=== PATIENT | male | born 1960 | race Caucasian/White ===

== ENCOUNTER 2016-11-20 08:30 | Inpatient (IN) | payer MEDICAID ==
--- NOTE | 2016-11-20 08:32 | EDPHY ---
H & P HPI/ROS: CHIEF COMPLAINT: Altered mental status HISTORY OF PRESENT ILLNESS: The patient is a 56 year old male with alcoholism, brought in by EMS, presenting with altered mental status. The patient resides at [facility]. According to their staff, the patient became manic last night and this morning seemed appeared altered. BGL in route was 109. Further history is unobtainable due to patient's altered mental status and failure to follow commands. REVIEW OF SYSTEMS: ROS is limited due to patient's altered mental status and failure to follow commands. Past Medical/Surgical History: Medical records reviewed from previous admission H&P dated 08/26/16. IDDM, Peripheral artery disease, GERD, Depression, Alcoholism PSH: Right BKA, Cholecystectomy Social History: Patient was previously homeless, no resides at [facility]. Physical Exam: General Appearance: Alert, agitated and uncooperative, mainly moaning and groaning, but states that he wants to Eyes: Pupils equal and round, no conjunctival pallor or injection ENT, Mouth: Mucous membranes moist Neck: Normal inspection Respiratory: Lungs are clear to auscultation Cardiovascular: Regular rate and rhythm Gastrointestinal: Abdomen is soft, no apparent tenderness Neurological: Alert, moves all extremities, does not follow commands Skin: Warm and dry Extremities: Right BKA Psychiatric: Agitated Constitutional: Initial Vital Signs Temperature (C) 35.8 C L 11/20/16 08:45 Heart Rate 87 11/20/16 08:45 Respiratory Rate 16 11/20/16 08:45 Blood Pressure 133/96 H 11/20/16 08:45 O2 Sat (%) 94 11/20/16 08:45 O2 Delivery Mode Nasal Cannula O2 (L/minute) 2 Allergies/Adverse Reactions: No Known Allergies Allergy (Verified 07/10/16 11:05) Home Medications: Medication Instructions Recorded Albuterol [Proventil Inhaler HFA 2 puffs IH Q4 PRN #0 mdi 07/21/16 (*)] Aspirin EC [Aspirin EC 81 mg (*)] 81 mg PO DAILY #0 tab 07/21/16 Polyethylene Glycol 3350 [Miralax 17 gm PO DAILY #0 pkt 07/21/16 17 gm (*)] Thiamine HCl [Vitamin B-1] 100 mg PO DAILY #0 tab 07/21/16 amLODIPine BESYLATE [Norvasc 5 mg 5 mg PO DAILY #0 tab 07/21/16 (*)] guaiFENesin [Mucinex 600 MG (*)] 1,200 mg PO BID #0 tab.er 07/21/16 Insulin Aspart [Novolog Flexpen] 4 unit SQ BID@12,17 08/26/16 Insulin Detemir [Levemir Flextouch] 22 unit SQ HS 08/26/16 Insulin Detemir [Levemir Flextouch] 25 unit SQ DAILY 08/26/16 Nicotine [Nicoderm Cq 21 mg (*)] 21 mg TD DAILY PRN 08/26/16 Omeprazole 20 mg PO DAILYAC 08/26/16 Sennosides/Docusate Sodium 1 tab PO BID 08/26/16 [Senokot-S] Gabapentin [Neurontin 300 MG (*)] 600 mg PO TID #0 cap 08/31/16 Acetaminophen [Tylenol ES 500 mg 1,000 mg PO Q8 PRN 11/20/16 (*)] CYCLOBENZAPRINE HCL [Flexeril] 5 mg PO HS 11/20/16 Insulin Lispro [humALOG LISPRO 100 8 unit SC PRN PRN 11/20/16 units/ml (*)] Levothyroxine [Synthroid 75 mcg 75 mcg PO DAILY06 11/20/16 (*)] Oxycodone HCl [Dazidox] 20 mg PO Q4 PRN 11/20/16 PARoxetine HCL [Paxil 20mg (*)] 20 mg PO DAILY 11/20/16 morphINE SR [Ms Contin/Oramorph 15 15 mg PO BID 11/20/16 mg (*)] oxyCODONE IR [Oxycodone Ir (*)] 10 mg PO Q4HRS PRN 11/20/16 Medical Decision Making - Diagnostics EKG Interpretation: EKG interpreted by me reveals normal sinus rhythm, rate 87, poor R-wave progression, lateral T-wave flattening. Imaging: Study: CT of the head. Indication: Altered. Results: Nothing acute. The study was read by the radiologist, Dr. Mendez. I viewed the images myself on the PACS system. Study: X-ray of the chest was obtained. Results: Diffuse consolidation of the right lung most consistent with pneumonia. Images were interpreted by the radiologist, Dr. Robertson. I viewed the images myself on the PACS system. ED Course/Re-evaluation: This is a well-known alcoholic with multiple prior emergency department visits. He is now in a assisted and does have access to alcohol. IV was established, patient received 1mg Ativan IV. Chest x-ray and head CT are pending. Serum ethanol level is negative. He continues to have altered mental status and is unable (or unwilling) to have a conversation with me. I will proceed with further evaluation, including CT scan of the brain, chest x-ray and urinalysis. Chest x-ray reveals a dense consolidation of the entire right lung, consistent with pneumonia. Patient is afebrile and there is no leukocytosis. I will treat him for pneumonia, especially given altered mental status and h/o alcoholism. Blood cultures were drawn Levaquin and Zosyn IV given. Hospitalist service was consulted for admission. Patient is no longer agitated. He is sitting up in bed laughing hysterically. Still unable to provide any clinical history. Differential Diagnosis: Altered mental status including but not limited to hypoglycemia, infectious process, electrolyte abnormality, head injury and intoxicants. - Data Points Laboratory Results: Laboratory Results 11/20/16 08:35 11/20/16 08:35 Medications Given: Discontinued Medications Sodium Chloride (Ns) 1,000 mls @ 0 mls/hr IV ONCE ONE PRN Reason: Wide Open Stop: 11/20/16 10:35 Last Admin: 11/20/16 11:44 Dose: 1,000 mls Levofloxacin/Dextrose (Levaquin 750 Mg (Premix)) 150 mls @ 100 mls/hr IV EDNOW ONE PRN Reason: Protocol Stop: 11/20/16 12:02 Last Admin: 11/20/16 12:39 Dose: 150 mls Piperacillin/Tazobactam/Dextrose (Zosyn (Premix)) 100 mls @ 200 mls/hr IV EDNOW ONE PRN Reason: Protocol Stop: 11/20/16 11:02 Last Admin: 11/20/16 11:44 Dose: 100 mls Sodium Chloride (Ns) 1,000 mls @ 3,000 mls/hr IV ONCE ONE Stop: 11/20/16 12:31 Last Admin: 11/20/16 12:18 Dose: 1,000 mls Cefepime HCl 2 gm/ Dextrose 100 mls @ 200 mls/hr IV Q8HRS TED PRN Reason: Protocol Stop: 12/20/16 13:59 Last Admin: 11/20/16 14:43 Dose: 100 mls Vancomycin HCl 1.5 gm/ (Dextrose) 250 mls @ 166.667 mls/hr IV Q12H TED Stop: 12/20/16 15:59 Last Admin: 11/20/16 16:04 Dose: 250 mls Lorazepam (Ativan Injection) 1 mg IVP EDNOW ONE Stop: 11/20/16 08:34 Last Admin: 11/20/16 08:44 Dose: Not Given Departure - Departure Disposition: [facility] In[facility] Acute Clinical Impression: Altered mental status Qualifiers: Qualifier Code: (R41.82) Altered mental status, unspecified Pneumonia Qualifiers: Qualifier Code: (J18.9) Pneumonia, unspecified organism Condition: Fair Report Scribed for: Vandana Philip Report Scribed by: Shawna Arias Date of Report: 11/20/16 Time of Report: 08:35 Physician Review and Approval Statement: 11/20/16 08:35 Portions of this note were transcribed by a medical services coordinator. I personally performed the history, physical exam, and medical decision-making; and confirmed the accuracy of the information in the transcribed note.
[2016-11-20] MEDS ORDERED: LORazepam 2 MG/ML INJ IVP ONE (08:33)
[2016-11-20 08:46] LABS: % IMMATURE GRANULYOCYTES 0.1 % (0.0-1.1); ABSOLUTE IMMATURE GRANULOCYTES 0.01 10^3/uL (0.00-0.10); ADD DIFF? NO; ADD MORPH? NO; ADD SCAN? NO; ATYPICAL LYMPHOCYTE FLAG 20 (0-99); FRAGMENT RBC FLAG 0 (0-99); HEMATOCRIT 38.4 % (40.0-51.0); HEMOGLOBIN 13.7 g/dL (13.7-17.5); LEFT SHIFT FLG 0 (0-99); LIPEMIA HEMOLYSIS FLAG 90 (0-99); MEAN CELL HEMOGLOBIN 30.2 pg (27.9-34.1); MEAN CELL HEMOGLOBIN CONCENTR. 35.7 g/dL (32.4-36.7); MEAN CELL VOLUME 84.6 fL (81.5-99.8); MEAN PLATELET VOLUME 10.7 fL (8.7-11.7); PLATELET CLUMPS FLAG 0 (0-99); PLATELET COUNT 194 10^3/uL (150-400); RED BLOOD CELL COUNT 4.54 10^6/uL (4.40-6.38); RED CELL DISTRIBUTION WIDTH 13.9 % (11.5-15.2)
[2016-11-20 09:16] LABS: ALANINE AMINOTRANSFERASE 51 IU/L (21-72); ALBUMIN 3.8 g/dL (3.5-5.0); ALKALINE PHOSPHATASE 196 IU/L (38-126); ANION GAP 12 mEq/L (8-16); ASPARTATE AMINOTRANSFERASE 35 IU/L (17-59); BILIRUBIN,TOTAL 0.9 mg/dL (0.1-1.4); BILIRUBIN-CONJUGATED 0.1 mg/dL (0.0-0.5); BILIRUBIN-UNCONJUGATED 0.8 mg/dL (0.0-1.1); CALCIUM 9.1 mg/dL (8.5-10.4); CARBON DIOXIDE 25 mEq/l (22-31); CHLORIDE 104 mEq/L (97-110); CREATININE 0.7 mg/dL (0.7-1.3); ETHANOL SERUM < 10 mg/dL (0-10); GLOMERULAR FILTRATION RATE > 60; GLUCOSE 112 mg/dL (70-100); POTASSIUM 3.8 mEq/L (3.5-5.2); SODIUM 141 mEq/L (134-144); TOTAL PROTEIN 7.1 g/dL (6.3-8.2)
--- NOTE | 2016-11-20 09:30 | CPEKG ---
Heart Rate: 87 RR Interval: 690 P-R Interval: 168 QRSD Interval: 88 QT Interval: 400 QTC Interval: 482 P [place]: 44 QRS [place]: -9 T Wave [place]: 109 EKG Severity - ABNORMAL ECG - EKG Impression: SINUS RHYTHM EKG Impression: CONSIDER ANTEROSEPTAL INFARCT EKG Impression: NONSPECIFIC T ABNORMALITIES, LATERAL LEADS EKG Impression: BORDERLINE PROLONGED QT INTERVAL Electronically Signed By: Vandana Philip 20-Nov-2016 15:05:33
--- NOTE | 2016-11-20 10:05 | CT ---
CT Scan of the Head (Without Contrast) Clinical Indications: 56-year-old male in a half-way with a diminished mental status after being initially found down and unresponsive. Rule out acute intracranial abnormality. Technique: Axial CT images were acquired from the foramen magnum through the skull vertex, without i ntravenous contrast. Soft tissue, subdural, and bone windows were reviewed on the computer workstati on. Images were reformatted at 5.00 and 1.50 mm increments, and are reformatted in sagittal and gus nal planes. DFOV is 25.0 cm. Dose reduction techniques were utilized. Comparison Study: Unenhanced CT scan of the brain, dated June 26, 2016. Findings: There are no new mass lesions identified, and there is no evidence of an acute or subacute intracranial hemorrhage, or an acute infarct. There is an old oval-shaped lacunar infarct lateral to the posterior limb of the left internal capsule, and also at the genu of the right internal capsule. The ventricles and subarachnoid spaces are probably prominent for a patient this age group, consiste nt with some early atrophy. There is atherosclerotic calcification of the vertebral arteries, and of the cavernous carotid arteries. The bone windows reveal no sign of an acute fracture. There are stab le deformities of the right and left nasal bones similar to June, consistent with old prior fractur e sites. There is trace mucosal thickening in the right maxillary sinus, and also involving the ethm oids. 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 The sphenoid sinuses are patent. The cranioce rvical junction, sella turcica, pineal gland, and the orbits are unremarkable. The temporomandibular joints are anatomically-aligned, and the pterygoid plates are intact. Mild undulation of each zygomat ic arch is stable from before. The mastoid air cells are free of fluid. There may be a small right fr ontal scalp hematoma on coronal series 5, image 22 and on axial series 3, images 84-90, and there yolis ears to be an old scalp scar along the right posterior parietal region (on series 3 image 82), unchan ged from June. If there is continuing clinical concern regarding the patient's symptoms, MR imaging could be considered, if otherwise not contraindicated. Impression: There is no acute intracranial abnormality, or other substantial change from June 26, 2 016. Results were conveyed to Dr. Radha Philip. A test result has been communicated to a licensed care provider and documented in [employer], 9:59:40 AM , 11/20/2016, [employer] Message ID [id number].
[2016-11-20] MEDS ORDERED: PIPERACILLIN/TAZO 4.5 GM/DEX 100 ML IV ONE (10:33)
[2016-11-20] MEDS ORDERED: NS 1,000 ML IV ONE ×2 (10:34→12:12)
--- NOTE | 2016-11-20 10:38 | DX ---
Chest, Two Views November 20, 2016 Indication: Altered mental status. Findings: Heart size is normal. Left lung is clear. There is diffuse consolidation of the right lung. Air bronchograms are noted. Impression: Diffuse consolidation of the right lung most consistent with pneumonia. Critical results relayed by Dr. Robertson to Dr. Philip on November 20, 2016 at 1034 hours.
[2016-11-20] MEDS ORDERED: ACETAMINOPHEN 325 MG TAB PO PRN (12:12)
[2016-11-20] MEDS ORDERED: ONDANSETRON DISINTEGRATING 4 MG TAB PO PRN (12:12)
[2016-11-20] MEDS ORDERED: ALBUTEROL 3 ML DEYVIAL IH PRN (12:12)
[2016-11-20] MEDS ORDERED: ONDANSETRON 4 MG/2 ML VIAL IVP PRN (12:12)
[2016-11-20] MEDS ORDERED: NICOTINE 21 MG/24 HR PATCH TD PRN (13:05)
[2016-11-20] MEDS ORDERED: CEFEPIME HCL 2 GM in D5W 100 ML IV SCH (14:00)
[2016-11-20] MEDS ORDERED: D50W 25 GM/50 ML SYR IVP PRN (14:13)
[2016-11-20] MEDS ORDERED: VANCOMYCIN 1.5 GM in D5W 250 ML IV SCH (16:00)
[2016-11-20] MEDS: IPRATROPIUM/ALBUTEROL 3 ML DEYVIAL IH SCH ×2 (16:27→21:30)
[2016-11-20] MEDS: GABAPENTIN 300 MG CAP PO SCH ×2 (16:29→20:49)
--- NOTE | 2016-11-20 16:29 | GHP ---
[f rep st] HISTORY AND PHYSICAL DATE OF ADMISSION: 11/20/2016 CHIEF COMPLAINT: Somnolence, encephalopathy. HISTORY OF PRESENT ILLNESS: A 56-year-old male with a complicated medical history including diabetes, peripheral vascular disease and alcoholism who presents from his [facility] facility, reported to be confused and encephalopathic. Patient was reported to not be appropriately responding to his care providers in the [facility] facility, grumbling and chatting agitations. In the emergency department, patient is unable to effectively answer questions. Per the [facility] facility report, there were no specific fevers, changes in respiratory, cardiac or gastrointestinal systems. PAST MEDICAL HISTORY: 1. Insulin-dependent diabetes. 2. Peripheral vascular disease. 3. Gastroesophageal reflux disease. 4. Depression. 5. Alcoholism. SOCIAL HISTORY: Patient is a resident of [facility]. Actively drinks alcohol. Does not smoke. FAMILY HISTORY: Positive for diabetes. ADVANCED DIRECTIVES: Patient is full cor, full tube. REVIEW OF SYSTEMS: A 10-point review of systems is negative with the exception of that reported in the HPI. PHYSICAL EXAMINATION: VITAL SIGNS: Blood pressure 132/86, heart rate 95, respiratory rate 19, saturating 97% on room air, 36.4. GENERAL: This is a very disheveled-appearing middle-aged male, lying flat in bed. HEENT: Notable for poor dentition, dry mucous membranes. Eye exam is negative for any icterus. CARDIAC: Patient is regular rate and rhythm. PULMONARY: Scattered rhonchi, bilateral bases. No wheezing. GASTROINTESTINAL: Positive bowel sounds. ABDOMEN: Soft. MUSCULOSKELETAL: The patient has amputation on the right. No lower extremity edema on the left. SKIN: Negative for any rashes. NEUROLOGIC: The patient is not alert and oriented x3, grumbling and shouting, not effectively answering questions. DATA: Noncontrast CT of the head, which I personally reviewed and interpreted, shows no acute findings. Chest x-ray, which I personally reviewed and interpreted, shows a right-sided infiltrate. LABORATORY: White count 8.8, hematocrit 38.4, platelets 194, creatinine 0.7. ASSESSMENT AND PLAN: This is a 56-year-old male with multiple medical comorbidities, presenting with encephalopathy. 1. Acute encephalopathy. Suspect this is likely related to acute pneumonia. Will treat the patient empirically for healthcare associated pneumonia with cefepime and vancomycin. Blood cultures have been obtained. Will follow those. Will send toxicology screen to rule out acute intoxication as well as urinalysis to rule out secondary occult urinary tract infection. 2. Healthcare associated pneumonia. Patient is a shelter resident and has had multiple recent hospitalizations. Will treat with cefepime, vancomycin and follow blood cultures. 3. Hypertension. Will continue his home medications. 4. Diabetes. Will continue his home insulin protocol. 5. History of alcohol abuse. Will continue thiamine replacement and send urinary toxicology screen. 6. Prophylaxis with Lovenox. 7. Diet as tolerated. DISPOSITION: I suspect greater than 2 midnights. The patient is presenting encephalopathic with a new healthcare associated pneumonia. I discussed the case with the emergency room physician. The patient will be triaged to the medical-surgical floor for care. /[id number]/MODL MTDD
[2016-11-20] MEDS: NS 1,000 ML IV SCH (17:10)
--- NOTE | 2016-11-20 17:43 | PCMIDPN ---
Assessment/Plan: #AMS - suspect due to drug/EtOh use and withdrawal #?PNA CXR with possible infiltrate on R side, but imaging taken on side. No resp sx, O2 sat nl on RA. Wonder if CXR abn are position and/or due to inhalation injury from drug use (although patient primarily endorses IVDU) --r/o influenza --would narrow antibiotics to Levaquin alone and DC cefepime, vancomycin --repeat CXR, if significant resolution in infiltrate, consider dc antibiotics #h/o IVDU: follow blood cultures Will follow peripherally, call for additional questions. Subjective: 56 yo male with h/o diabetes H/o R BKA, recently seen by ID 08/2016 for L great to OM, s/p amputation admitted for AMS. ID service consulted to comment on management of AMS and PNA. Patient denies resp symptoms, cough, fever, problems with his LEs, diarrhea. Patient has received 1 dose of levoquin, zosyn , cefepime and vancomycin. Current c/o during exam "put the covers on me, I am cold!!" Objective: Vital Signs Temp Pulse Resp BP Pulse Ox 36.4 C 71 16 142/78 H 92 11/20/16 14:59 11/20/16 16:34 11/20/16 16:34 11/20/16 14:59 11/20/16 16:34 11/19/16 11/20/16 11/21/16 05:59 05:59 05:59 Intake Total 1550 Balance 1550 - Physical Exam General Appearance: obese, other (aggitated but cooperative) EENT: poor dentition, other (conjunctiva injected) Respiratory: lungs clear Neck: supple Cardiac/Chest: regular rate, rhythm, No systolic murmur Extremities: swelling (B hand due to admitted IVDU with meth), other (R BKA stump with small wound w/o erythema) Abdomen: normal bowel sounds, non-tender, soft Skin: warm/dry, signs of IVDA, No jaundice, No pallor Neuro/Psych: other (aggitated but generally cooperative, answering questions appropriately) - Line/s PIV Lines: other (R forarm), No drainage, No erythema - Time Spent With Patient Time Spent with Patient: greater than 25 minutes (coordination of care with Dr. Borjas) Time Spent with Patient: Greater than 25 minutes spent on this patients care, greater than 50% of time spent counseling, educating, and coordinating care regarding the above mentioned plan. ICD10 Worksheet Patient Problems: Problems Problem Status Diagnosed Alcohol dependence Acute Altered mental status Acute Diabetic foot ulcer Acute Hyperglycemia Acute Osteomyelitis Acute Pneumonia Acute Alcohol abuse Acute Alcohol intoxication Acute Atelectasis Acute Bronchitis Acute
[2016-11-20] MEDS: INSULIN LISPRO 100 UNIT/ML SC SCH ×2 (18:13→18:14)
[2016-11-20 20:06] LABS: COLOR YELLOW; LEUKOCYTE ESTERASE,URINE NEGATIVE (NEGATIVE); NITRITE,URINE NEGATIVE (NEGATIVE)
[2016-11-20 20:23] LABS: MUCUS TRACE /lpf (NONE-1+)
[2016-11-20] MEDS: CYCLOBENZAPRINE 10 MG TAB PO SCH (20:48)
[2016-11-20] MEDS: SENNOSIDES/DOCUSATE SODIUM TAB PO SCH (20:48)
[2016-11-20] MEDS: INSULIN GLARGINE 100 UNITS/ML SYRINGE SC SCH (20:49)
[2016-11-20] MEDS: morphINE SR 15 MG TAB PO SCH (20:49)
[2016-11-20] MEDS: guaiFENesin 600 MG TAB.ER PO SCH (20:49)
[2016-11-21 05:27] LABS: % IMMATURE GRANULYOCYTES 0.3 % (0.0-1.1); ABSOLUTE IMMATURE GRANULOCYTES 0.02 10^3/uL (0.00-0.10); ADD DIFF? NO; ADD MORPH? NO; ADD SCAN? NO; ATYPICAL LYMPHOCYTE FLAG 20 (0-99); FRAGMENT RBC FLAG 0 (0-99); HEMATOCRIT 38.5 % (40.0-51.0); HEMOGLOBIN 13.2 g/dL (13.7-17.5); LEFT SHIFT FLG 0 (0-99); LIPEMIA HEMOLYSIS FLAG 90 (0-99); MEAN CELL HEMOGLOBIN 29.9 pg (27.9-34.1); MEAN CELL HEMOGLOBIN CONCENTR. 34.3 g/dL (32.4-36.7); MEAN CELL VOLUME 87.3 fL (81.5-99.8); PLATELET CLUMPS FLAG 0 (0-99); PLATELET COUNT 175 10^3/uL (150-400); RED BLOOD CELL COUNT 4.41 10^6/uL (4.40-6.38)
[2016-11-21 05:37] LABS: ANION GAP 6 mEq/L (8-16); CALCIUM 8.2 mg/dL (8.5-10.4); CARBON DIOXIDE 25 mEq/l (22-31); CHLORIDE 105 mEq/L (97-110); CREATININE 0.6 mg/dL (0.7-1.3); GLOMERULAR FILTRATION RATE > 60; GLUCOSE 257 mg/dL (70-100); SODIUM 136 mEq/L (134-144)
[2016-11-21] MEDS: IPRATROPIUM/ALBUTEROL 3 ML DEYVIAL IH SCH ×4 (06:00→21:30)
[2016-11-21] MEDS: PANTOPRAZOLE SODIUM 40 MG TAB PO SCH (08:12)
[2016-11-21] MEDS: LEVOTHYROXINE 75 MCG TAB PO SCH (08:12)
[2016-11-21] MEDS: INSULIN LISPRO 100 UNIT/ML SC SCH ×5 (08:12→18:08)
[2016-11-21] MEDS: GABAPENTIN 300 MG CAP PO SCH ×3 (08:32→21:21)
[2016-11-21] MEDS: morphINE SR 15 MG TAB PO SCH ×2 (08:32→21:20)
[2016-11-21] MEDS: guaiFENesin 600 MG TAB.ER PO SCH ×2 (09:13→21:20)
[2016-11-21] MEDS: ENOXAPARIN 40 MG/0.4 ML SYR SC SCH (09:13)
[2016-11-21] MEDS: amLODIPine BESYLATE 5 MG TAB PO SCH (09:13)
[2016-11-21] MEDS: PARoxetine HCL 20 MG TAB PO SCH (09:13)
[2016-11-21] MEDS: THIAMINE HCL 100 MG TAB PO SCH (09:13)
[2016-11-21] MEDS: ASPIRIN EC 81 MG TAB PO SCH (09:13)
[2016-11-21] MEDS: INSULIN GLARGINE 100 UNITS/ML SYRINGE SC SCH ×2 (09:14→21:20)
[2016-11-21] MEDS: POLYETHYLENE GLYCOL 3350 17 GM PKT PO SCH (09:19)
[2016-11-21] MEDS: SENNOSIDES/DOCUSATE SODIUM TAB PO SCH ×2 (09:19→21:21)
[2016-11-21] MEDS: NS 1,000 ML IV SCH (15:05)
--- NOTE | 2016-11-21 15:17 | GDS ---
[f rep st] DISCHARGE SUMMARY Addendum: Patient being held overnight 2/2 Acute urinary retention - straigh cath with >1000cc of urine - will monitor for voiding prior to dc CT head (personally reviewed and interpreted) no acute abnormality I have discussed the case with RN - we will monitor closely for spontaneous voiding - - Physical Exam 110/62 (81) 18 96% on RA Constitutional: chronically ill appearing Eyes: anicteric sclera Ears, Nose, Mouth, Throat: moist mucous membranes Cardiovascular: regular rate and rhythym Respiratory: no respiratory distress, no rales or rhonchi Gastrointestinal: normoactive bowel sounds, tenderness, other (wond vac in place ) Genitourinary: no bladder fullness Skin: warm Musculoskeletal: asymmetric calves Neurologic: AAOx3 Psychiatric: interacting appropriately, not anxious Lymph, Heme, Immunologic: no cervical LAD DISCHARGE DIAGNOSES: 1. Acute encephalopathy secondary to acute amphetamine intoxication. 2. Insulin-dependent diabetes. 3. Peripheral vascular disease. 4. Alcoholism. 5. Depression. 6. Gastroesophageal reflux disease. HISTORY OF PRESENT ILLNESS: A 56-year-old male, who is currently a resident of [facility] who was brought in secondary to acute encephalopathy. For details of patient's initial presentation, please see the history and physical dated 11/20/2016. CONSULTATIVE SERVICES: Infectious Disease. PROCEDURES: Noncontrast CT of the head on 11/20/2016 shows no acute findings. Chest x-ray in the lateral position queries infiltrate. HOSPITAL COURSE BY ISSUE: 1. Acute encephalopathy. The patient was entirely unable to answer questions, agitated and somnolent. He was admitted and empirically treated for possible pneumonia as no history was obtainable. Soon after, he came to and admitted to use of illicit [facility] the [facility] including amphetamines. Suspect this is the cause of his encephalopathy. The patient was clear by the morning after. 2. Polysubstance abuse. Patient known alcohol abuser, clearly illicit drug user and opiate user. We encourage cessation as polysubstance abuse is dangerous for his overall health status. DISPOSITION: He will be discharged back home to his halfway facility. MEDICATIONS AT TIME OF DISPOSITION: Please reference medication reconciliation. We did not make any changes to his home med list. PENDING STUDIES: At the time of this dictation include blood cultures drawn on 11/20/2016, which are pending. No growth to date. FOLLOWUP APPOINTMENTS: Dr. Ibarra at [facility]. TIME SPENT: I spent greater than 30 minutes in the planning and coordination of this discharge. /[id number]/MODL MTDD
[2016-11-21] MEDS: oxyCODONE IR 5 MG TAB PO PRN (19:28)
[2016-11-21] MEDS: CYCLOBENZAPRINE 10 MG TAB PO SCH (21:21)
[2016-11-22] MEDS: oxyCODONE IR 5 MG TAB PO PRN ×3 (01:02→11:53)
[2016-11-22] MEDS: PANTOPRAZOLE SODIUM 40 MG TAB PO SCH (05:43)
[2016-11-22] MEDS: LEVOTHYROXINE 75 MCG TAB PO SCH (05:43)
[2016-11-22] MEDS: IPRATROPIUM/ALBUTEROL 3 ML DEYVIAL IH SCH ×2 (05:49→11:25)
[2016-11-22 07:28] VITALS: BP 100/62; PULSE 81; RESP 18; TEMP 98.1; O2SAT 90
[2016-11-22] MEDS: INSULIN LISPRO 100 UNIT/ML SC SCH ×3 (08:16→13:01)
[2016-11-22] MEDS: GABAPENTIN 300 MG CAP PO SCH (09:37)
[2016-11-22] MEDS: SENNOSIDES/DOCUSATE SODIUM TAB PO SCH (09:38)
[2016-11-22] MEDS: ASPIRIN EC 81 MG TAB PO SCH (09:38)
[2016-11-22] MEDS: morphINE SR 15 MG TAB PO SCH (09:38)
[2016-11-22] MEDS: THIAMINE HCL 100 MG TAB PO SCH (09:39)
[2016-11-22] MEDS: ENOXAPARIN 40 MG/0.4 ML SYR SC SCH (09:39)
[2016-11-22] MEDS: PARoxetine HCL 20 MG TAB PO SCH (09:39)
[2016-11-22] MEDS: amLODIPine BESYLATE 5 MG TAB PO SCH (09:39)
[2016-11-22] MEDS: POLYETHYLENE GLYCOL 3350 17 GM PKT PO SCH (09:39)
[2016-11-22] MEDS: guaiFENesin 600 MG TAB.ER PO SCH (09:46)
[2016-11-22] MEDS: INSULIN GLARGINE 100 UNITS/ML SYRINGE SC SCH (09:47)
--- NOTE | 2016-11-22 11:29 | PDIAF ---
- Diagnosis Diagnosis: encephalopathy 2/2 intoxication Code Status: Full Code - Medication Management Discharge Medications: Medications to Continue on Transfer Albuterol [Proventil Inhaler HFA (*)] 2 puffs IH Q4 PRN #0 mdi 07/21/16 [Last Taken Unknown] Aspirin EC [Aspirin EC 81 mg (*)] 81 mg PO DAILY #0 tab 07/21/16 [Last Taken ] Polyethylene Glycol 3350 [Miralax 17 gm (*)] 17 gm PO DAILY #0 pkt 07/21/16 [ Last Taken 11/20/16] Thiamine HCl [Vitamin B-1] 100 mg PO DAILY #0 tab 07/21/16 [Last Taken 11/20/16] amLODIPine BESYLATE [Norvasc 5 mg (*)] 5 mg PO DAILY #0 tab 07/21/16 [Last Taken 11/20/16] guaiFENesin [Mucinex 600 MG (*)] 1,200 mg PO BID #0 tab.er 07/21/16 [Last Taken 11/20/16 08:00] Insulin Aspart [Novolog Flexpen] 4 unit SQ BID@08/26/16 [Last Taken ] Insulin Detemir [Levemir Flextouch] 22 unit SQ HS 08/26/16 [Last Taken 11/19/16] Insulin Detemir [Levemir Flextouch] 25 unit SQ DAILY 08/26/16 [Last Taken ] Nicotine [Nicoderm Cq 21 mg (*)] 21 mg TD DAILY PRN 08/26/16 [Last Taken Unknown ] Omeprazole 20 mg PO DAILYAC 08/26/16 [Last Taken 11/20/16] Sennosides/Docusate Sodium [Senokot-S] 1 tab PO BID 08/26/16 [Last Taken 08:00] Gabapentin [Neurontin 300 MG (*)] 600 mg PO TID #0 cap 08/31/16 [Last Taken 08:00] Acetaminophen [Tylenol ES 500 mg (*)] 1,000 mg PO Q8 PRN 11/20/16 [Last Taken Unknown] CYCLOBENZAPRINE HCL [Flexeril] 5 mg PO HS 11/20/16 [Last Taken 11/19/16] Insulin Lispro [humALOG LISPRO 100 units/ml (*)] 8 unit SC PRN PRN 11/20/16 [ Last Taken Unknown] Levothyroxine [Synthroid 75 mcg (*)] 75 mcg PO DAILY06 11/20/16 [Last Taken ] Oxycodone HCl [Dazidox] 20 mg PO Q4 PRN 11/20/16 [Last Taken 11/19/16] PARoxetine HCL [Paxil 20mg (*)] 20 mg PO DAILY 11/20/16 [Last Taken 11/20/16] morphINE SR [Ms Contin/Oramorph 15 mg (*)] 15 mg PO BID 11/20/16 [Last Taken 08:00] oxyCODONE IR [Oxycodone Ir (*)] 10 mg PO Q4HRS PRN 11/20/16 [Last Taken 11/19/16 ] Discharge Medications: Refer to the Discharge Home Medication list for PRN reason. - Orders Diet Recommendation: ADA 2200 consistent carb Diet Texture: Regular Texture Diet Ramirez: Yes (Removal and voiding trial after 48 hours- suspect AUR 2/2 amphetamine abuse) - Follow Up Care Current Providers and Referrals: AMAURY PALACIOS [Primary Care Provider] -
--- NOTE | 2016-11-22 15:26 | GDS ---
[f rep st] DISCHARGE SUMMARY DISCHARGE DIAGNOSES: 1. Acute encephalopathy secondary to methamphetamine intoxication. 2. Acute urinary retention presumed secondary to sympathomimetic effects of amphetamines. 3. Diabetes mellitus. 4. Polysubstance abuse. 5. Peripheral vascular disease. 6. Alcoholism. 7. Depression. 8. Gastroesophageal reflux disease. HISTORY OF PRESENT ILLNESS: A 56-year-old male brought in from his long term facility after be ing found confused, agitated, and altered. For details of the patient's initial presentation, please see the history and physical dated 11/20/2016. CONSULTATIVE SERVICES: Include Infectious Disease. PROCEDURES: 1. Non-contrast CT of the head on November 20 shows no acute findings. 2. Chest x-ray on 11/20/2016: Poor quality, shows query of a possible infiltrate. HOSPITAL COURSE: 1. Acute encephalopathy. The patient was found to have amphetamines in his urine, and admitted to h is overnight care provider shooting up because it makes him feel good. The patient's mental status c leared as the drugs cleared from his system. We spoke at length with this patient the risks of ongoi ng polysubstance abuse. Would recommend urine monitoring for drugs in the long term facility. 2. Acute urinary retention. Patient has no history of BPH and historically is able to empty his carline dder without complication. Suspect we are seeing the sympathomimetic effects of amphetamine. The warner magana was straight catheterized twice during his hospital stay, the first time with greater than 1 L of urine retained. Patient was still unable to void urine on his own. A Ramirez catheter was placed o n the day of disposition. We recommend this stay in place for the next 48 hours and then be pulled w ith a voiding trial. Again, we re-reviewed the importance of avoiding illicit recreational drug use. 3. Diabetes mellitus. Will continue the patient's outpatient medications without change. PENDING STUDIES AT TIME OF DICTATION: None. FOLLOWUP APPOINTMENTS: Include in [address] Pinon for Ramirez removal and voiding trial. TIME SPENT: I spent greater than 30 minutes in the planning and coordination of this discharge. /[id number]/MODL
--- NOTE | 2016-11-25 16:16 | PQFORM ---
PHYSICIAN QUERY FORM Needs Your Response This query form is being sent to you to assure this patient record is coded properly. Please respond to the question below: RESCUE WORKER QUESTION: Dear Dr. Borjas, It is documented In the ER report and in the Infectious disease progress note that the patient has the diagnosis of 'Pneumonia.' Also, documented in the H&P with the diagnosis of 'healthcare associated pneumonia.' After study, should the diagnosis of 'Healthcare associated pneumonia' be included in the Discharge summary? Yes _x____ No Other Unable to determine Thank you DANISH Arnold HIM/Coding Dept [phone] INSTRUCTIONS FOR RESPONSE: Answer question by clicking on the "Edit Document" button. Move cursor to area below the stars. When complete, hit "Save." Click on the "Sign" button, then click "Sign" again. Type in your PIN and hit "Enter." MTDD
== END 2016-11-22 13:26 | DRG 91 ==
LOC: EDUNIT# → F3E 14:49
PROVIDERS: ADMIT Internal Medicine; ATTEND Hospitalist
DX: G92 Toxic encephalopathy (principal); J18.8 Other pneumonia, unspecified organism; F15.129 Other stimulant abuse with intoxication, unspecified; R33.0 Drug induced retention of urine; E11.9 Type 2 diabetes mellitus without complications; F19.10 Other psychoactive substance abuse, uncomplicated; F32.9 Major depressive disorder, single episode, unspecified; I73.9 Peripheral vascular disease, unspecified; F10.20 Alcohol dependence, uncomplicated; K21.9 Gastro-esophageal reflux disease without esophagitis; Z79.4 Long term (current) use of insulin; Z89.511 Acquired absence of right leg below knee
CPT/HCPCS: 80305; 96365; 97165-GO; G0480; J0692; J1650; J1815; J1956; J2543; J3370

== ENCOUNTER 2017-11-16 22:32 | Inpatient (IN) | payer MEDICAID ==
[2017-11-16] MEDS ORDERED: NS 1,000 ML IV ONE (22:37)
--- NOTE | 2017-11-16 22:45 | EDPHY ---
H & P HPI/ROS: HPI The patient presents with right arm pain which has been present for the last 3 days. He believes it occurred after a fall out of his wheelchair at [facility] 3 days ago. Because of ongoing pain and redness, x-ray was performed tonight. This demonstrated air within the soft tissues concerning for gangrene or other serious infection and thus the patient was transferred here. He has not had a fever. He does have type 2 diabetes, and is dependent on insulin. Glucose was 255 by the paramedics. He thinks his arm has been bothering him for about a month. REVIEW OF SYSTEMS Constitutional: No fever, no chills. Eyes: No discharge. ENT: No sore throat. Cardiovascular: No chest pain, no palpitations. Respiratory: No cough, no shortness of breath. Gastrointestinal: No abdominal pain, no vomiting. Genitourinary: No hematuria. Musculoskeletal: No back pain. Skin: No rashes. Neurological: No headache. PMHx: Insulin-dependent diabetes, history of IV heroin use, last use 2 months ago Soc Hx: Currently resides at [facility], previously homeless PHYSICAL General Appearance: Alert, no distress Eyes: Pupils equal and round no pallor or injection ENT, Mouth: Mucous membranes moist Respiratory: There are no retractions, lungs are clear to auscultation Cardiovascular: Tachycardic rate, regular rhythm Gastrointestinal: Abdomen is soft and non-tender, no masses, bowel sounds normal Neurological: A&O, moves all extremities Skin: Right forearm is diffusely erythematous, circumferential edema is present and is tender to palpation, there are 2 ulcerations on the forearm which are draining serosanguineous fluid Musculoskeletal: Neck is supple non tender Extremities: symmetrical, full range of motion Psychiatric: Patient is oriented X 3, there is no agitation Source: Patient, EMS Exam Limitations: No limitations - Medical/Surgical History Hx Asthma: No Hx Chronic Respiratory Disease: No Hx Diabetes: Yes Hx Cardiac Disease: Yes Hx Renal Disease: No Hx Cirrhosis: No Hx Alcoholism: Yes Hx HIV/AIDS: No Hx Splenectomy or Spleen Trauma: No Other PMH: IDDM, R below knee amputation, afib, cardiac stents, ETOH ABUSE - Social History Smoking Status: Heavy smoker Constitutional: Initial Vital Signs Temperature (C) 36.7 C 11/16/17 22:31 Heart Rate 104 H 11/16/17 22:31 Respiratory Rate 20 11/16/17 22:31 Blood Pressure 108/71 11/16/17 22:31 O2 Sat (%) 90 L 11/16/17 22:31 O2 Delivery Mode Room Air Allergies/Adverse Reactions: No Known Allergies Allergy (Verified 11/16/17 22:43) Home Medications: Medication Instructions Recorded Albuterol [Proventil Inhaler HFA 2 puffs IH Q4 PRN #0 mdi 07/21/16 (*)] Aspirin EC [Aspirin EC 81 mg (*)] 81 mg PO DAILY #0 tab 07/21/16 Polyethylene Glycol 3350 [Miralax 17 gm PO DAILY #0 pkt 07/21/16 17 gm (*)] Thiamine HCl [Vitamin B-1] 100 mg PO DAILY #0 tab 07/21/16 amLODIPine BESYLATE [Norvasc 5 mg 5 mg PO DAILY #0 tab 07/21/16 (*)] guaiFENesin [Mucinex 600 MG (*)] 1,200 mg PO BID #0 tab.er 07/21/16 Insulin Aspart [Novolog Flexpen] 4 unit SQ BID@,17 08/26/16 Insulin Detemir [Levemir Flextouch] 22 unit SQ HS 08/26/16 Insulin Detemir [Levemir Flextouch] 25 unit SQ DAILY 08/26/16 Nicotine [Nicoderm Cq 21 mg (*)] 21 mg TD DAILY PRN 08/26/16 Omeprazole 20 mg PO DAILYAC 08/26/16 Sennosides/Docusate Sodium 1 tab PO BID 08/26/16 [Senokot-S] Gabapentin [Neurontin 300 MG (*)] 600 mg PO TID #0 cap 08/31/16 Acetaminophen [Tylenol ES 500 mg 1,000 mg PO Q8 PRN 11/20/16 (*)] CYCLOBENZAPRINE HCL [Flexeril] 5 mg PO HS 11/20/16 Insulin Lispro [humALOG LISPRO 100 8 unit SC PRN PRN 11/20/16 units/ml (*)] Levothyroxine [Synthroid 75 mcg 75 mcg PO DAILY06 11/20/16 (*)] Oxycodone HCl [Dazidox] 20 mg PO Q4 PRN 11/20/16 PARoxetine HCL [Paxil 20mg (*)] 20 mg PO DAILY 11/20/16 morphINE SR [Ms Contin/Oramorph 15 15 mg PO BID 11/20/16 mg (*)] oxyCODONE IR [Oxycodone Ir (*)] 10 mg PO Q4HRS PRN 11/20/16 Medical Decision Making - Diagnostics Imaging Results: Imaging Impressions Extremity CT 11/16/17 22:37 Impression: Limited exam due to large body habitus. Partially imaged right forearm and right arm with suspected gas forming organism/infection involving the subcutaneous fat above and below the elbow. Findings discussed with Emergency Department physician, Florinda Bergman MD at 11/17/2017 0:06. Imaging: Discussed imaging studies w/ hand lens polisher Radiologist, I viewed and interpreted images myself Differential Diagnosis: 57-year-old male, history of insulin-dependent diabetes, IV drug use, last 2 months ago, alcohol abuse, currently residing at [facility] now presenting with right arm pain after a fall several days ago, x-ray performed today showing gas in the soft tissues, raising suspicion for infection. Differential diagnosis includes cellulitis with gas-forming organism, necrotizing fasciitis, gangrene, abscess. In the emergency department, patient was given IV fluids. Lactate was normal. Vital signs remained stable. Labs were checked and did reveal profound leukocytosis with hyponatremia inserting for necrotizing fasciitis. CT scan of the arm did demonstrate gas within the subcutaneous tissues. I consulted with Dr. Foster of General surgery who came to the emergency department to evaluate the patient. She will take the patient directly to the operating room. I have also consulted with the hospitalist Dr. Fan who will admit the patient after her operation. Critical Care Time: CRITICAL CARE Critical care time spent by me, Dr. Bergman, exclusively with this patient was 30 minutes, exclusive of PA time and exclusive of procedures. The organ system at risk was cardiac and I gave IV fluids, antibiotics, transfer the patient to the operating room with the surgeon to prevent worsening of the patients condition. - Data Points Laboratory Results: Laboratory Results 11/16/17 22:45 11/16/17 22:45 11/16/17 11/16/17 11/16/17 22:45 22:45 22:45 WBC RBC Hgb Hct MCV MCH MCHC RDW Plt Count MPV Neut % (Auto) Lymph % (Auto) [place] % (Auto) Eos % (Auto) Baso % (Auto) Nucleat RBC Rel Count Absolute Neuts (auto) Absolute Lymphs (auto) Absolute Monos (auto) Absolute Eos (auto) Absolute Basos (auto) Absolute Nucleated RBC Immature Gran % Immature Gran # PT 15.7 SEC H SEC (12.0-15.0) INR 1.23 H (0.83-1.16) APTT 31.9 SEC SEC (23.0-38.0) VBG Lactic Acid 1.5 mmol/L mmol/L (0.7-2.1) Sodium Potassium Chloride Carbon Dioxide Anion Gap BUN Creatinine Estimated GFR Glucose Calcium C-Reactive Protein 352.5 mg/L H mg/L (<10.0) 11/16/17 11/16/17 22:45 22:45 WBC 25.82 10^3/uL H 10^3/uL (3.80-9.50) RBC 4.39 10^6/uL L 10^6/uL (4.40-6.38) Hgb 13.0 g/dL L g/dL (13.7-17.5) Hct 37.0 % L % (40.0-51.0) MCV 84.3 fL fL (81.5-99.8) MCH 29.6 pg pg (27.9-34.1) MCHC 35.1 g/dL g/dL (32.4-36.7) RDW 13.2 % % (11.5-15.2) Plt Count 221 10^3/uL 10^3/uL (150-400) MPV 10.7 fL fL (8.7-11.7) Neut % (Auto) 87.5 % H % (39.3-74.2) Lymph % (Auto) 6.4 % L % (15.0-45.0) [place] % (Auto) 4.9 % % (4.5-13.0) Eos % (Auto) 0.1 % L % (0.6-7.6) Baso % (Auto) 0.3 % % (0.3-1.7) Nucleat RBC Rel Count 0.0 % % (0.0-0.2) Absolute Neuts (auto) 22.62 10^3/uL H 10^3/uL (1.70-6.50) Absolute Lymphs (auto) 1.64 10^3/uL 10^3/uL (1.00-3.00) Absolute Monos (auto) 1.26 10^3/uL H 10^3/uL (0.30-0.80) Absolute Eos (auto) 0.02 10^3/uL L 10^3/uL (0.03-0.40) Absolute Basos (auto) 0.08 10^3/uL 10^3/uL (0.02-0.10) Absolute Nucleated RBC 0.00 10^3/uL 10^3/uL (0-0.01) Immature Gran % 0.8 % % (0.0-1.1) Immature Gran # 0.20 10^3/uL H 10^3/uL (0.00-0.10) PT INR APTT VBG Lactic Acid Sodium 128 mEq/L L mEq/L (135-145) Potassium 4.0 mEq/L mEq/L (3.5-5.2) Chloride 92 mEq/L L mEq/L (97-110) Carbon Dioxide 23 mEq/l mEq/l (22-31) Anion Gap 13 mEq/L mEq/L (8-16) BUN 27 mg/dL H mg/dL (7-23) Creatinine 1.1 mg/dL mg/dL (0.7-1.3) Estimated GFR > 60 Glucose 262 mg/dL H mg/dL (70-100) Calcium 8.8 mg/dL mg/dL (8.5-10.4) C-Reactive Protein Medications Given: Discontinued Medications Bacitracin (Bacitracin Syringe) Confirm Administered Dose 50,000 units IRR .STK- MED ONE Stop: 11/17/17 01:19 Last Admin: 11/17/17 03:18 Dose: Not Given Bupivacaine HCl (Sensorcaine 0.5% Vial) Confirm Administered Dose 30 ml .ROUTE .STK-MED ONE Stop: 11/17/17 01:18 Last Admin: 11/17/17 03:18 Dose: Not Given Sodium Chloride (Ns) 1,000 mls @ 0 mls/hr IV EDNOW ONE; Wide Open PRN Reason: Protocol Stop: 11/16/17 22:38 Last Admin: 11/16/17 23:04 Dose: 1,000 mls Clindamycin Phosphate/Dextrose (Cleocin 600 Mg (Premix)) 50 mls @ 100 mls/hr IV EDNOW ONE PRN Reason: Protocol Stop: 11/16/17 23:21 Last Admin: 11/16/17 23:04 Dose: 50 mls Vancomycin HCl 1.5 gm/ (Dextrose) 250 mls @ 166.67 mls/hr IV EDNOW ONE PRN Reason: Protocol Stop: 11/17/17 00:21 Last Admin: 11/17/17 00:54 Dose: 250 mls Piperacillin/Tazobactam/Dextrose (Zosyn (Premix)) 100 mls @ 200 mls/hr IV EDNOW ONE PRN Reason: Protocol Stop: 11/16/17 23:21 Last Admin: 11/17/17 00:15 Dose: 100 mls Polymyxin B Sulfate (Polymyxin B Syringe) Confirm Administered Dose 500,000 unit IRR .STK-MED ONE Stop: 11/17/17 01:18 Last Admin: 11/17/17 03:18 Dose: Not Given Departure - Departure Disposition: [facility] Acute Clinical Impression: Right arm cellulitis, Leukocytosis, Hyperglycemia due to type 2 diabetes mellitus Condition: Fair
[2017-11-16] MEDS ORDERED: VANCOMYCIN 1.5 GM in D5W 250 ML IV ONE (22:52)
[2017-11-16] MEDS ORDERED: PIPERACILLIN/TAZO 4.5 GM/DEX 100 ML IV ONE (22:52)
[2017-11-16] MEDS ORDERED: CLINDAMYCIN 600 MG/DEXTROSE 50 ML IV ONE (22:52)
[2017-11-16 22:57] LABS: PLATELET COUNT 221 10^3/uL (150-400)
[2017-11-16 23:07] LABS: INR 1.23 (0.83-1.16); PROTIME(PATIENT) 15.7 SEC (12.0-15.0)
[2017-11-16] MEDS ORDERED: IOPAMIDOL (ISOVUE-300) 100 ML BTL ONE (23:10)
[2017-11-17] MEDS ORDERED: NS 1,000 ML IV ONE (00:28)
[2017-11-17] MEDS ORDERED: POLYMYXIN B SULFATE 500,000 UNIT/10 ML SYR IRR ONE (01:17)
[2017-11-17] MEDS ORDERED: BUPIVACAINE 0.5% 30 ML SDV ONE (01:17)
[2017-11-17] MEDS ORDERED: BACITRACIN 50,000 UNITS/10 ML SYR IRR ONE (01:18)
[2017-11-17] MEDS ORDERED: ACETAMINOPHEN 325 MG TAB PO PRN (01:18)
[2017-11-17] MEDS ORDERED: ONDANSETRON DISINTEGRATING 4 MG TAB PO PRN (01:18)
[2017-11-17] MEDS ORDERED: ONDANSETRON 4 MG/2 ML VIAL IVP PRN ×2 (01:18→03:03)
--- NOTE | 2017-11-17 01:27 | PDANEPAE ---
ANE History of Present Illness 57 year old, s/p fall from wheel chair with infected right arm. ANE Past Medical History - Cardiovascular History Hx Hypertension: Yes Hx Arrhythmias: Yes Hx Coronary Artery / Peripheral Vascular Disease: Yes - Pulmonary History Hx Oxygen in Use at Home: No Hx Sleep Apnea: Yes - Endocrine History Hx Diabetes: Yes - Chronic Pain History Chronic Pain: Yes ANE Review of Systems Review of Systems: ANE Patient History - Allergies Allergies/Adverse Reactions: No Known Allergies Allergy (Verified 11/16/17 22:43) - Home Medications Home medications: home medication list seen and reviewed Home Medications: Insulin Aspart [Novolog Flexpen] 4 unit SQ BID@08/26/16 [Last Taken ] Insulin Detemir [Levemir Flextouch] 22 unit SQ HS 08/26/16 [Last Taken 11/19/16] Insulin Detemir [Levemir Flextouch] 25 unit SQ DAILY 08/26/16 [Last Taken ] Nicotine [Nicoderm Cq 21 mg (*)] 21 mg TD DAILY PRN 08/26/16 [Last Taken Unknown ] Omeprazole 20 mg PO DAILYAC 08/26/16 [Last Taken 11/20/16] Sennosides/Docusate Sodium [Senokot-S] 1 tab PO BID 08/26/16 [Last Taken 08:00] Acetaminophen [Tylenol ES 500 mg (*)] 1,000 mg PO Q8 PRN 11/20/16 [Last Taken Unknown] CYCLOBENZAPRINE HCL [Flexeril] 5 mg PO HS 11/20/16 [Last Taken 11/19/16] Insulin Lispro [humALOG LISPRO 100 units/ml (*)] 8 unit SC PRN PRN 11/20/16 [ Last Taken Unknown] Levothyroxine [Synthroid 75 mcg (*)] 75 mcg PO DAILY06 11/20/16 [Last Taken ] Oxycodone HCl [Dazidox] 20 mg PO Q4 PRN 11/20/16 [Last Taken 11/19/16] PARoxetine HCL [Paxil 20mg (*)] 20 mg PO DAILY 11/20/16 [Last Taken 11/20/16] morphINE SR [Ms Contin/Oramorph 15 mg (*)] 15 mg PO BID 11/20/16 [Last Taken 08:00] oxyCODONE IR [Oxycodone Ir (*)] 10 mg PO Q4HRS PRN 11/20/16 [Last Taken 11/19/16 ] - Smoking Hx Smoking Status: Heavy smoker - Alcohol Use Alcohol Use: Heavy (NPO status is unclear. History of herion abuse) ANE Labs/Vital Signs - Labs Result Diagrams: 11/16/17 22:45 11/16/17 22:45 - Vital Signs Blood Pressure: 124/88 Heart Rate: 103 Respiratory Rate: 20 O2 Sat (%): 2 Weight: 113.398 kg ANE Anesthesia Plan Anesthesia Plan: general endotracheal anesthesia (Pt is a poor historian)
[2017-11-17] MEDS ORDERED: D50W 25 GM/50 ML VIAL IVP PRN (01:29)
[2017-11-17] MEDS ORDERED: fentaNYL 250 MCG/5 ML INJ ONE (01:36)
[2017-11-17] MEDS ORDERED: SUCCINYLCHOLINE CHLORIDE 200 MG/10 ML SYR IVP ONE (01:37)
[2017-11-17] MEDS ORDERED: PROPOFOL 200 MG/20 ML VIAL ONE (01:37)
[2017-11-17] MEDS ORDERED: ONDANSETRON 4 MG/2 ML VIAL ONE (02:34)
[2017-11-17] MEDS ORDERED: oxyCODONE IR 5 MG TAB PO PRN (02:47)
--- NOTE | 2017-11-17 02:49 | POSTOPPROG ---
Post Op Note Date of Operation: 11/17/17 Surgeon: Tabitha Foster Anesthesiologist: warm Anesthesia: GET(General Endotracheal) Pre-op Diagnosis: nec fasc Post-op Diagnosis: same Indication: 57 yo with nec fasc Procedure: debride skin soft tissue to fascia Findings: [id number]. necrotic tissue Inf/Abcess present in the surg proc area at time of surgery?: Yes Depth: Deep Incisional (Fascial) EBL: Minimal Drains: Wound Vac Specimen(s): micro and perm
[2017-11-17] MEDS ORDERED: NALOXONE HCL 0.4 MG/ML INJ IVP PRN (03:03)
[2017-11-17] MEDS ORDERED: PROMETHAZINE HCL 25 MG/ML INJ IVP PRN (03:03)
[2017-11-17] MEDS ORDERED: HYDROmorphONE/DILAUDID 1 MG/ML INJ IVP PRN (03:03)
[2017-11-17] MEDS ORDERED: fentaNYL 100 MCG/2 ML INJ IVP PRN (03:03)
--- NOTE | 2017-11-17 03:03 | POSTANESTH ---
Post Anesthetic Evaluation Cardiovascular Status: Normal, Stable Respiratory Status: Normal, Stable Level of Consciousness/Mental Status: Moderately Sleepy Pain Control: Adequate, Prn Tx Ordered Nausea/Vomiting Control: Adequate, Prn Tx Ordered Complications Possibly Related to Anesthesia: None Noted
--- NOTE | 2017-11-17 03:10 | PDGENHP ---
History and Physical - Chief Complaint Arm pain - History of Present Illness 57 yo M w/ IDDM and hx of polysubstance abuse presents with R arm pain for at least 3 days. Patient fell out of his wheel chair at [facility] 3 days ago. Due to ongoing pain and redness and XR was obtained. This revealed gas within the soft tissues prompting transfer to the ED for evaluation. At the time of my evaluation patient is somnolent but arousable. He is not able to answer questions at this time. History Information - Allergies/Home Medication List Allergies/Adverse Reactions: No Known Allergies Allergy (Verified 11/16/17 22:43) Home Medications: Insulin Aspart [Novolog Flexpen] 4 unit SQ BID@08/26/16 [Last Taken ] Insulin Detemir [Levemir Flextouch] 22 unit SQ HS 08/26/16 [Last Taken 11/19/16] Insulin Detemir [Levemir Flextouch] 25 unit SQ DAILY 08/26/16 [Last Taken ] Nicotine [Nicoderm Cq 21 mg (*)] 21 mg TD DAILY PRN 08/26/16 [Last Taken Unknown ] Omeprazole 20 mg PO DAILYAC 08/26/16 [Last Taken 11/20/16] Sennosides/Docusate Sodium [Senokot-S] 1 tab PO BID 08/26/16 [Last Taken 08:00] Acetaminophen [Tylenol ES 500 mg (*)] 1,000 mg PO Q8 PRN 11/20/16 [Last Taken Unknown] CYCLOBENZAPRINE HCL [Flexeril] 5 mg PO HS 11/20/16 [Last Taken 11/19/16] Insulin Lispro [humALOG LISPRO 100 units/ml (*)] 8 unit SC PRN PRN 11/20/16 [ Last Taken Unknown] Levothyroxine [Synthroid 75 mcg (*)] 75 mcg PO DAILY06 11/20/16 [Last Taken ] Oxycodone HCl [Dazidox] 20 mg PO Q4 PRN 11/20/16 [Last Taken 11/19/16] PARoxetine HCL [Paxil 20mg (*)] 20 mg PO DAILY 11/20/16 [Last Taken 01/13/17] morphINE SR [Ms Contin/Oramorph 15 mg (*)] 15 mg PO BID 11/20/16 [Last Taken 08:00] oxyCODONE IR [Oxycodone Ir (*)] 10 mg PO Q4HRS PRN 11/20/16 [Last Taken 11/19/16 ] I have personally reviewed and updated: family history, medical history - Past Medical History diabetes type 2 - Surgical History Additional surgical history: R BKA - Social History Smoking Status: Heavy smoker Alcohol Use: Heavy (NPO status is unclear. History of herion abuse) Drug Use: Heroin, Other (Methamphetamine) Review of Systems Review of Systems: Unable to obtain 2/2 mental status. Physical Exam Physical Exam: Temp Pulse Resp BP Pulse Ox 37.2 C 103 H 25 H 138/80 H 96 11/17/17 02:54 11/17/17 01:30 11/17/17 02:52 11/17/17 02:50 11/17/17 02:52 O2 (L/minute) 8 Constitutional: unkempt, other (Somnolent) Eyes: PERRL, EOMI Ears, Nose, Mouth, Throat: moist mucous membranes, no oral mucosal ulcers Cardiovascular: regular rate and rhythym, no murmur, rub, or gallop Respiratory: no respiratory distress, clear to auscultation Gastrointestinal: normoactive bowel sounds, soft, non-tender abdomen Skin: other (RUE notable for erythema, swelling, and tenderness to palpation) Neurologic: sensation intact bilaterally, CN II-XII Intact Psychiatric: not anxious, encephalopathic Lab Data & Imaging Review 11/16/17 22:45 11/16/17 22:45 WBC 25.82 10^3/uL (3.80-9.50) H 11/16/17 22:45 RBC 4.39 10^6/uL (4.40-6.38) L 11/16/17 22:45 Hgb 13.0 g/dL (13.7-17.5) L 11/16/17 22:45 Hct 37.0 % (40.0-51.0) L 11/16/17 22:45 MCV 84.3 fL (81.5-99.8) 11/16/17 22:45 MCH 29.6 pg (27.9-34.1) 11/16/17 22:45 MCHC 35.1 g/dL (32.4-36.7) 11/16/17 22:45 RDW 13.2 % (11.5-15.2) 11/16/17 22:45 Plt Count 221 10^3/uL (150-400) 11/16/17 22:45 MPV 10.7 fL (8.7-11.7) 11/16/17 22:45 Neut % (Auto) 87.5 % (39.3-74.2) H 11/16/17 22:45 Lymph % (Auto) 6.4 % (15.0-45.0) L 11/16/17 22:45 [place] % (Auto) 4.9 % (4.5-13.0) 11/16/17 22:45 Eos % (Auto) 0.1 % (0.6-7.6) L 11/16/17 22:45 Baso % (Auto) 0.3 % (0.3-1.7) 11/16/17 22:45 Nucleat RBC Rel Count 0.0 % (0.0-0.2) 11/16/17 22:45 Absolute Neuts (auto) 22.62 10^3/uL (1.70-6.50) H 11/16/17 22:45 Absolute Lymphs (auto) 1.64 10^3/uL (1.00-3.00) 11/16/17 22:45 Absolute Monos (auto) 1.26 10^3/uL (0.30-0.80) H 11/16/17 22:45 Absolute Eos (auto) 0.02 10^3/uL (0.03-0.40) L 11/16/17 22:45 Absolute Basos (auto) 0.08 10^3/uL (0.02-0.10) 11/16/17 22:45 Absolute Nucleated RBC 0.00 10^3/uL (0-0.01) 11/16/17 22:45 Immature Gran % 0.8 % (0.0-1.1) 11/16/17 22:45 Immature Gran # 0.20 10^3/uL (0.00-0.10) H 11/16/17 22:45 PT 15.7 SEC (12.0-15.0) H 11/16/17 22:45 INR 1.23 (0.83-1.16) H 11/16/17 22:45 APTT 31.9 SEC (23.0-38.0) 11/16/17 22:45 VBG Lactic Acid 1.5 mmol/L (0.7-2.1) 11/16/17 22:45 Sodium 128 mEq/L (135-145) L 11/16/17 22:45 Potassium 4.0 mEq/L (3.5-5.2) 11/16/17 22:45 Chloride 92 mEq/L (97-110) L 11/16/17 22:45 Carbon Dioxide 23 mEq/l (22-31) 11/16/17 22:45 Anion Gap 13 mEq/L (8-16) 11/16/17 22:45 BUN 27 mg/dL (7-23) H 11/16/17 22:45 Creatinine 1.1 mg/dL (0.7-1.3) 11/16/17 22:45 Estimated GFR > 60 11/16/17 22:45 Glucose 262 mg/dL (70-100) H 11/16/17 22:45 POC Glucose 234 mg/dL (70-100) H 11/17/17 01:14 Calcium 8.8 mg/dL (8.5-10.4) 11/16/17 22:45 C-Reactive Protein 352.5 mg/L (<10.0) H 11/16/17 22:45 Imaging Review: Imaging Impressions Extremity CT 11/16/17 22:37 Impression: Limited exam due to large body habitus. Partially imaged right forearm and right arm with suspected gas forming organism/infection involving the subcutaneous fat above and below the elbow. Findings discussed with Emergency Department physician, Florinda Bergman MD at 11/17/2017 0:06. Assessment & Plan Assessment: 57 yo M w/ hx of IDDM and polysubstance abuse presents with gas forming infection of the R arm. Plan: 1. Sepsis 2/2 suspected RUE necrotizing fasciitis - 2/4 SIRS criteria (HR, WBC) present on admission. Gas forming infection involving RUE above and below elbow ; confirmed on XR and CT. LRINEC score of 8 denoting high risk of necrotizing fasciitis. - Blood cultures obtained, s/p 2 L IVF - Vancomycin, Zosyn, Clindamycin for broad spectrum coverage - Surgery service consulted, will take to OR tonight for debridement 2. IDDM - On insulin detemir 25/22 AM/PM as well as SSI as outpatient. S/p multiple amputations. - Insulin glargine 15 u BID for now as I anticipate poor PO intake - Standard protocol SSI 3. Polysubstance abuse- Documented hx of heroin, ETOH, and methamphetamine use 4. HTN - on amlodipine as outpatient 5. Hypothyroid - On LTX. Diet - NPO Code - Full Ppx - SCDs Dispo - Admit to inpatient status noting severe infection requiring surgical intervention and IV antibiotics.
--- NOTE | 2017-11-17 05:54 | GOP ---
[f rep st] OPERATIVE REPORT DATE OF OPERATION: 11/17/2017 SURGEON: Tabtiha Foster MD ANESTHESIA: Durga Warm/general. PREOPERATIVE DIAGNOSIS: Necrotizing fasciitis, right forearm. POSTOPERATIVE DIAGNOSIS: Necrotizing fasciitis, right forearm. PROCEDURE PERFORMED: Debridement skin, soft tissue to the level of the fascia, right arm. FINDINGS: 15 x 8 x 1 cm with necrotic tissue and coagulated blood vessels. SPECIMENS: Micro and path. ESTIMATED BLOOD LOSS: Minimal. INDICATIONS: The patient is a 57-year-old who developed abscesses. His arm became increasingly swollen over the past 1 week to 1 month. He had an x-ray and CT scan that showed gas beneath the skin. DESCRIPTION OF PROCEDURE: The patient was brought into the operating room, placed supine on the table, and general anesthesia was administered. His right arm was prepped and draped in the usual sterile fashion. I initially performed an incision and drainage down to, and there was necrotic dishwater fluid. My finger could track easily along the fascia. The skin was not viable. I excised a large portion of the skin. I incised the muscle, which appeared to be healthy. There were coagulated blood vessels. After I was satisfied with the amount of skin and soft tissue that was removed, it measured 15 x 8 x 1. Hemostasis was achieved. I placed a wound VAC. He was awakened in the operating room, extubated, and transferred to PACU in stable condition. /[id number]/MODL MTDD
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
[2017-11-17] MEDS: PIPERACILLIN/TAZO 3.375 GM/DEX 50 ML IV SCH ×3 (06:47→18:42)
[2017-11-17 07:17] LABS: PLATELET COUNT 168 10^3/uL (150-400)
[2017-11-17] MEDS: CLINDAMYCIN 600 MG/DEXTROSE 50 ML IV SCH ×3 (07:28→21:53)
[2017-11-17] MEDS ORDERED: INSULIN LISPRO 100 UNIT/ML SC SCH (08:00)
[2017-11-17] MEDS: VANCOMYCIN 1.25 GM in D5W 250 ML IV SCH ×2 (08:57→16:22)
[2017-11-17] MEDS ORDERED: INSULIN GLARGINE 100 UNITS/ML SYRINGE SC SCH (09:00)
[2017-11-17] MEDS ORDERED: ALTEPLASE 2 MG VIAL IVP PRN (10:10)
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
[2017-11-17] MEDS: INSULIN LISPRO 100 UNIT/ML SC SCH ×2 (11:57→18:17)
[2017-11-17] MEDS ORDERED: ACETAMINOPHEN 500 MG TAB PO PRN (15:29)
[2017-11-17] MEDS ORDERED: ALBUTEROL 60 PUFFS/8 GM MDI IH PRN (15:29)
--- NOTE | 2017-11-17 15:38 | HOSPPROG ---
Hospitalist Progress Note Assessment/Plan: 57 yo M w/ hx of IDDM and polysubstance abuse presents with gas forming infection of the R arm. # Sepsis secondary to RUE necrotizing fasciitis status post debridement by Dr. Fermin on 11/17/2017 with subsequent wound VAC placement - continue Vancomycin, Zosyn, Clindamycin for broad spectrum coverage - infectious Disease was consulted -surgery consult was reviewed and appreciated -place PICC line 2. IDDM -resume home dose of basal insulin - Standard protocol SSI -monitor sugars with goal of a blood sugars less than 180 3. Polysubstance abuse- Documented hx of heroin, ETOH, and methamphetamine use 4. HTN - on amlodipine as outpatient 5. Hypothyroid - On LTX. Diet - advance diet per surgery Code - Full Ppx - SCDs Dispo - Admit to inpatient status noting severe infection requiring surgical intervention and IV antibiotics. Subjective: Reports severe pain in right forearm. Denies any new numbness or weakness in his hand. Objective: Vital Signs Temp Pulse Resp BP Pulse Ox 36.3 C 89 13 115/66 98 11/17/17 12:00 11/17/17 12:00 11/17/17 12:00 11/17/17 12:00 11/17/17 12:00 Microbiology 11/17/17 02:15 Gram Stain - Final Arm - Tissue Laboratory Results 11/17/17 06:45 11/17/17 06:45 11/16/17 11/17/17 11/18/17 05:59 05:59 05:59 Intake Total 2900 Output Total 30 Balance 2870 PT 15.7 SEC (12.0-15.0) H 11/16/17 22:45 INR 1.23 (0.83-1.16) H 11/16/17 22:45 - Physical Exam Constitutional: chronically ill appearing Cardiovascular: regular rate and rhythym, no murmur, rub, or gallop Respiratory: no respiratory distress, no rales or rhonchi, clear to auscultation Gastrointestinal: normoactive bowel sounds, soft, non-tender abdomen, no palpable masses, No guarding, No rebound Skin: other (Wound VAC in place over right forearm; cap refill less than 2 sec) Neurologic: AAOx3, CN II-XII Intact, No facial droop ICD10 Worksheet Patient Problems: Problems Problem Status Onset Alcohol intoxication Acute Hyperglycemia Acute Pneumonia Acute Bronchitis Acute Atelectasis Acute Alcohol dependence Acute Alcohol abuse Acute Diabetic foot ulcer Acute Osteomyelitis Acute Altered mental status Acute Right arm cellulitis Acute Leukocytosis Acute Hyperglycemia due to type 2 diabetes mellitus Acute
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
[2017-11-17] MEDS: oxyCODONE IR 5 MG TAB PO PRN (16:17)
[2017-11-17] MEDS: GABAPENTIN 300 MG CAP PO SCH ×2 (16:17→21:53)
[2017-11-17] MEDS ORDERED: NON-FORMULARY NEW DRUG (Insulin Aspart [Novolog Flexpen] 0 UNIT) SQ SCH (18:00)
[2017-11-17] MEDS ORDERED: INSULIN DETEMIR 37 UNIT SQ SCH (21:00)
[2017-11-17] MEDS: morphINE SR 15 MG TAB PO SCH (21:52)
[2017-11-17] MEDS: SENNOSIDES/DOCUSATE SODIUM TAB PO SCH (21:52)
[2017-11-17] MEDS: INSULIN GLARGINE 100 UNITS/ML UNIT SC SCH (22:45)
[2017-11-18] MEDS: PIPERACILLIN/TAZO 3.375 GM/DEX 50 ML IV SCH ×4 (01:06→17:41)
[2017-11-18] MEDS: VANCOMYCIN 1.25 GM in D5W 250 ML IV SCH ×3 (01:11→18:17)
[2017-11-18 04:37] LABS: PLATELET COUNT 165 10^3/uL (150-400)
[2017-11-18] MEDS: LEVOTHYROXINE 150 MCG TAB PO SCH (06:37)
[2017-11-18] MEDS: CLINDAMYCIN 600 MG/DEXTROSE 50 ML IV SCH ×3 (06:37→22:30)
[2017-11-18] MEDS: oxyCODONE IR 5 MG TAB PO PRN ×4 (06:37→20:41)
--- NOTE | 2017-11-18 08:13 | SOAPPROG ---
SOAP Progress Note Assessment/Plan: Assessment: 57yo M admitted with nec fasc of RUE. S/p debridement skin, soft tissue to fascia Continue wound vac RUE - change MWF Less edematous May ultimately require STSG for closure of wound Continue IV antibiotics Appreciate ID and hospitalists Seen c Dr. Foster Objective: Vital Signs Temp Pulse Resp BP Pulse Ox 36.7 C 80 13 102/78 97 11/18/17 07:44 11/18/17 07:44 11/18/17 07:44 11/18/17 07:44 11/18/17 07:44 Microbiology 11/17/17 02:15 Gram Stain - Final Arm - Tissue Laboratory Results 11/18/17 04:20 11/18/17 04:20 11/17/17 11/18/17 11/19/17 05:59 05:59 05:59 Intake Total 2900 1800 Output Total 30 900 Balance 2870 900 PT 15.7 SEC (12.0-15.0) H 11/16/17 22:45 INR 1.23 (0.83-1.16) H 11/16/17 22:45 ICD10 Worksheet Patient Problems: Problems Problem Status Onset Hyperglycemia due to type 2 diabetes mellitus Acute Leukocytosis Acute Right arm cellulitis Acute Alcohol abuse Acute Alcohol dependence Acute Alcohol intoxication Acute Altered mental status Acute Atelectasis Acute Bronchitis Acute Diabetic foot ulcer Acute Hyperglycemia Acute Osteomyelitis Acute Pneumonia Acute
[2017-11-18] MEDS: THIAMINE HCL 100 MG TAB PO SCH (08:37)
[2017-11-18] MEDS: PANTOPRAZOLE SODIUM 40 MG TAB PO SCH (08:37)
[2017-11-18] MEDS: GABAPENTIN 300 MG CAP PO SCH ×3 (08:37→22:30)
[2017-11-18] MEDS: INSULIN LISPRO 100 UNIT/ML SC SCH ×3 (08:38→17:43)
[2017-11-18] MEDS: INSULIN GLARGINE 100 UNITS/ML UNIT SC SCH ×2 (08:38→20:43)
[2017-11-18] MEDS: POLYETHYLENE GLYCOL 3350 17 GM PKT PO SCH (08:39)
[2017-11-18] MEDS: SENNOSIDES/DOCUSATE SODIUM TAB PO SCH ×2 (08:46→20:39)
[2017-11-18] MEDS ORDERED: amLODIPine BESYLATE 5 MG TAB PO SCH (09:00)
[2017-11-18] MEDS: NICOTINE 21 MG/24 HR PATCH TD PRN (09:46)
[2017-11-18] MEDS: ENOXAPARIN 40 MG/0.4 ML SYR SC SCH (10:53)
--- NOTE | 2017-11-18 11:18 | PDMN ---
Medical Necessity Medical necessity: est los>2mn for sepsis r/t suspected RUE necrotizing fasciitis, and SIRS; admit to ICU/SDU for IV abx, and urgent debridement skin soft tissue to fascia; comorbid IDDM, hx polysubstance abuse; per order and H&P 11/17/17
--- NOTE | 2017-11-18 12:29 | HOSPPROG ---
Hospitalist Progress Note Assessment/Plan: 57 yo M w/ hx of IDDM and polysubstance abuse presents with gas forming infection of the R arm. # Sepsis secondary to RUE necrotizing fasciitis status post debridement by Dr. Fermin on 11/17/2017 with subsequent wound VAC placement - continue Vancomycin, Zosyn, Clindamycin for broad spectrum coverage - infectious Disease consult was reviewed and appreciated -surgery consult was reviewed and appreciated -PICC line placed 11/17/2017 2. IDDM -resume home dose of basal insulin - increase correctional insulin to the high-dose resume (done on 11/18/17) -monitor sugars with goal of a blood sugars less than 180 3. Polysubstance abuse- Documented hx of heroin, ETOH, and methamphetamine use 4. HTN -home dose of amlodipine is on hold 5. Hypothyroid - On LTX. Diet - advance diet per surgery Code - Full Ppx - SCDs Dispo -continue inpatient care. Transfer to medical surgical floor Subjective: Improving pain and right arm. Denies fevers chills. Objective: Vital Signs Temp Pulse Resp BP Pulse Ox 37.2 C 82 16 105/56 L 97 11/18/17 11:54 11/18/17 11:54 11/18/17 11:54 11/18/17 11:54 11/18/17 11:54 Microbiology 11/17/17 02:15 Gram Stain - Final Arm - Tissue Laboratory Results 11/18/17 04:20 11/18/17 04:20 11/17/17 11/18/17 11/19/17 05:59 05:59 05:59 Intake Total 2900 1800 Output Total 30 900 Balance 2870 900 PT 15.7 SEC (12.0-15.0) H 11/16/17 22:45 INR 1.23 (0.83-1.16) H 11/16/17 22:45 - Physical Exam Constitutional: chronically ill appearing, obese Cardiovascular: regular rate and rhythym, no murmur, rub, or gallop Respiratory: no respiratory distress, no rales or rhonchi, clear to auscultation Gastrointestinal: normoactive bowel sounds, soft, non-tender abdomen, no palpable masses, No guarding, No rebound Skin: other (Wound VAC in place over right forearm with surrounding erythema but overall seems to be improving) Musculoskeletal: other (Cap refill less than to seconds) Psychiatric: interacting appropriately, not anxious, not encephalopathic, thought process linear ICD10 Worksheet Patient Problems: Problems Problem Status Onset Alcohol intoxication Acute Hyperglycemia Acute Pneumonia Acute Bronchitis Acute Atelectasis Acute Alcohol dependence Acute Alcohol abuse Acute Diabetic foot ulcer Acute Osteomyelitis Acute Altered mental status Acute Right arm cellulitis Acute Leukocytosis Acute Hyperglycemia due to type 2 diabetes mellitus Acute
--- NOTE | 2017-11-18 13:31 | PCMIDPN ---
Assessment/Plan: Assessment: R arm necrotizing soft tissue infection - s/p debridement. Doing fairly well. Subdued and sleeping due to recent narcotic dose. No new culture data. Tolerating Vancomycin, Zosyn and clindamycin without issues. Plan: 1. Continue Vancomycin, Zosyn and clindamycin. 2. Follow up on operative culture data. 3. Follow clinical course. 11/18/17 17:54 11/18/17 17:55 11/18/17 17:55 Subjective: Patient sleeping soundly. Recent narcotic dose per his RN. Prior to this he was awake and alert. Arm remains swollen and slightly red but no worse than yesterday. Objective: Vancomycin # 2 Zosyn # 2 Clindamycin # 2 Vital Signs Temp Pulse Resp BP Pulse Ox 37.2 C 82 16 105/56 L 97 11/18/17 11:54 11/18/17 11:54 11/18/17 11:54 11/18/17 11:54 11/18/17 11:54 Microbiology 11/17/17 02:15 Gram Stain - Final Arm - Tissue Laboratory Results 11/18/17 04:20 11/18/17 04:20 11/17/17 11/18/17 11/19/17 05:59 05:59 05:59 Intake Total 2900 1800 Output Total 30 900 Balance 2870 900 C-Reactive Protein 352.5 mg/L (<10.0) H 11/16/17 22:45 - Physical Exam General Appearance: WD/WN, no apparent distress, obese, non-toxic Respiratory: lungs clear, normal breath sounds, No respiratory distress Cardiac/Chest: regular rate, rhythm, No tachycardia Extremities: No non-tender, No normal inspection (RUE with vac dressing in place.) Skin: normal color, warm/dry, No rash Neuro/Psych: alert, normal mood/affect, oriented x 3 ICD10 Worksheet Patient Problems: Problems Problem Status Onset Hyperglycemia due to type 2 diabetes mellitus Acute Leukocytosis Acute Right arm cellulitis Acute Alcohol abuse Acute Alcohol dependence Acute Alcohol intoxication Acute Altered mental status Acute Atelectasis Acute Bronchitis Acute Diabetic foot ulcer Acute Hyperglycemia Acute Osteomyelitis Acute Pneumonia Acute
[2017-11-18] MEDS: morphINE SR 15 MG TAB PO SCH (20:38)
[2017-11-19] MEDS: PIPERACILLIN/TAZO 3.375 GM/DEX 50 ML IV SCH ×4 (00:42→19:47)
[2017-11-19] MEDS: oxyCODONE IR 5 MG TAB PO PRN ×5 (00:43→19:45)
[2017-11-19] MEDS: VANCOMYCIN 1.25 GM in D5W 250 ML IV SCH ×3 (01:44→17:11)
[2017-11-19 05:17] LABS: PLATELET COUNT 183 10^3/uL (150-400)
[2017-11-19] MEDS: CLINDAMYCIN 600 MG/DEXTROSE 50 ML IV SCH ×3 (06:10→21:46)
[2017-11-19] MEDS: LEVOTHYROXINE 150 MCG TAB PO SCH (06:10)
[2017-11-19] MEDS: INSULIN LISPRO 100 UNIT/ML SC SCH ×3 (07:53→17:38)
[2017-11-19] MEDS: PANTOPRAZOLE SODIUM 40 MG TAB PO SCH (08:57)
[2017-11-19] MEDS: SENNOSIDES/DOCUSATE SODIUM TAB PO SCH ×2 (08:57→21:46)
[2017-11-19] MEDS: GABAPENTIN 300 MG CAP PO SCH ×3 (08:57→21:46)
[2017-11-19] MEDS: THIAMINE HCL 100 MG TAB PO SCH (08:57)
[2017-11-19] MEDS: ENOXAPARIN 40 MG/0.4 ML SYR SC SCH (08:58)
--- NOTE | 2017-11-19 09:20 | HOSPPROG ---
Hospitalist Progress Note Assessment/Plan: #Necrotizing right arm infection: debrided by Dr. Foster 11/17/17 -Staph aureus on culture -IV Vanc/Zosyn/Clindamycin -blood cultures negative -MWF wound vac changes #Uncontrolled DM: cont Glargine BID, SSI. Will need strict control with acute infection #Hypothyroidism: LT4 #Tobacco abuse: angela patch #DVT ppx: Lovenox #Disp: cont inpatient admission for IV abx, wound vac, DM control Subjective: throbbing in right arm Objective: Vital Signs Temp Pulse Resp BP Pulse Ox 36.8 C 74 20 113/75 96 11/19/17 08:00 11/19/17 08:00 11/19/17 08:00 11/19/17 08:00 11/19/17 08:00 Microbiology 11/17/17 02:15 Gram Stain - Final Arm - Tissue Laboratory Results 11/19/17 05:05 11/19/17 05:05 11/18/17 11/19/17 11/20/17 05:59 05:59 05:59 Intake Total 1800 2750 Output Total 900 1300 Balance 900 1450 PT 15.7 SEC (12.0-15.0) H 11/16/17 22:45 INR 1.23 (0.83-1.16) H 11/16/17 22:45 - Physical Exam Constitutional: obese Eyes: PERRL Ears, Nose, Mouth, Throat: moist mucous membranes Cardiovascular: regular rate and rhythym Respiratory: no respiratory distress, reduced air movement Gastrointestinal: normoactive bowel sounds, No tenderness Genitourinary: No garcia in urethra Skin: warm Musculoskeletal: other (right arm wound vac in place. Swelling of arm to hand and mild erythema elbow to wrist. Good cap refill. Clubbing of finger) Neurologic: sensation intact bilaterally, CN II-XII Intact Psychiatric: interacting appropriately ICD10 Worksheet Patient Problems: Problems Problem Status Onset Hyperglycemia due to type 2 diabetes mellitus Acute Leukocytosis Acute Right arm cellulitis Acute Alcohol abuse Acute Alcohol dependence Acute Alcohol intoxication Acute Altered mental status Acute Atelectasis Acute Bronchitis Acute Diabetic foot ulcer Acute Hyperglycemia Acute Osteomyelitis Acute Pneumonia Acute
[2017-11-19] MEDS: NICOTINE 21 MG/24 HR PATCH TD PRN (09:33)
[2017-11-19] MEDS: INSULIN GLARGINE 100 UNITS/ML UNIT SC SCH ×2 (09:33→21:46)
[2017-11-19] MEDS: POLYETHYLENE GLYCOL 3350 17 GM PKT PO SCH (10:34)
--- NOTE | 2017-11-19 10:38 | WOCRNPDOC ---
WOCRN Advanced Assessment Note - Skin Integrity Problem, Advanced Assess Right Arm Dressing Type: Black Vac Foam (x1) Dressing Description: Clean/Dry, Intact Exudate Amount: Minimal Exudate Characteristic(s): Serosanguinous Integumentary Issue Intervention: Dressing Changed John Wound Tissue: Erythema John Wound Swelling: Severe Wound Bed Constitution: Red/Kensal - Non Granular Tissue, Subcutaneous Fat, Adhered Slough (80%) Site Measurement - Head-to-Toe Length X Width X Depth (cm): 12.9x8.3x1.6 Skin Integrity Problem Comment: Cleaned with ns and gauze. John wound skin's hair clipped with clippers. Skin prep and drape applied john wound. Veraflo cleanse dressing applied to base. Vac started at -125 mm Hg with 36 ml of Vashe instillation Q3 hours for 6 min dwell time. No leaks noted. Patient tolerated proceedure well. LISBET Valente in room for care. Next vac change due Wednesday. Right Knee Dressing Type: Open to Air Exudate Amount: None Wound Bed Color: Black Wound Bed Constitution: Stable Eschar Site Measurement - Head-to-Toe Length X Width X Depth (cm): 1x1x0.3 (x2 wounds) Skin Integrity Problem Comment: Two unhealed wounds on lateral BKA site. They are fully necrotic and stalled. Unknown etiology. Please apply silvaDgimed Orthorb and [employer] life. Left Anterior Lower Arm Dressing Type: Open to Air Wound Bed Constitution: Adhered Slough Site Measurement - Head-to-Toe Length X Width X Depth (cm): 0.6x0.5x0.2 Skin Integrity Problem Comment: Unknown etiology. Please apply IXI-Playrb and [employer] life.
--- NOTE | 2017-11-19 11:53 | SOAPPROG ---
SOAP Progress Note Assessment/Plan: Assessment: 57yo M admitted with nec fasc of RUE. S/p debridement skin, soft tissue to fascia Continue wound vac RUE - change MWF. Changed by critical care educator - we visualized picture Less edematous and erythema May ultimately require STSG for closure of wound Continue IV antibiotics Appreciate ID and hospitalists Seen c Dr. Foster S: tolerated vac change at bedside. pain controlled. able to move right arm more than admission O: sitting upright in bed, comfortable, NAD No increased WOB RUE edema and erythema of mid-arm, improved compared to admission. Veraflo wound vac in place. Near full ROM of RUE, limited due to edema/wound vac Objective: Vital Signs Temp Pulse Resp BP Pulse Ox 36.8 C 74 20 113/75 96 11/19/17 08:00 11/19/17 08:00 11/19/17 08:00 11/19/17 08:00 11/19/17 08:00 Microbiology 11/17/17 02:15 Gram Stain - Final Arm - Tissue Laboratory Results 11/19/17 05:05 11/19/17 05:05 11/18/17 11/19/17 11/20/17 05:59 05:59 05:59 Intake Total 1800 2750 Output Total 900 1300 Balance 900 1450 PT 15.7 SEC (12.0-15.0) H 11/16/17 22:45 INR 1.23 (0.83-1.16) H 11/16/17 22:45 ICD10 Worksheet Patient Problems: Problems Problem Status Onset Hyperglycemia due to type 2 diabetes mellitus Acute Leukocytosis Acute Right arm cellulitis Acute Alcohol abuse Acute Alcohol dependence Acute Alcohol intoxication Acute Altered mental status Acute Atelectasis Acute Bronchitis Acute Diabetic foot ulcer Acute Hyperglycemia Acute Osteomyelitis Acute Pneumonia Acute
--- NOTE | 2017-11-19 14:22 | PCMIDPN ---
Assessment/Plan: 1. Right upper extremity necrotizing cellulitis status post incision and drainage: So far, cultures are mono microbial with Staphylococcus aureus alone. Blood cultures remain sterile. Would prefer to continue antibiotics as is pending maturation of cultures, as typically do not consider Staph aureus to be associated with gas formation, although it can happen. This is more common with anaerobes, such as clostridia. As outlined by Dr. Foster, may require skin grafting moving forward given extent of the wound. Hopefully will not require another washout, but will need to keep a close eye on his wounds. Obtain HIV antibody test. Subjective: Feeling okay today. Still having some discomfort in his arm, but much better compared with admission. No diarrhea. Willing to be HIV tested. Objective: Vancomycin 1.25 g IV q.8 hours date 2 Zosyn 3.375 g IV q.6 hours day 2 clindamycin 600 mg IV q.8 hours day 2 T-max 37.2degrees Vital Signs Temp Pulse Resp BP Pulse Ox 36.8 C 74 20 113/75 96 11/19/17 08:00 11/19/17 08:00 11/19/17 08:00 11/19/17 08:00 11/19/17 08:00 Microbiology 11/17/17 02:15 Gram Stain - Final Arm - Tissue Laboratory Results 11/19/17 05:05 11/19/17 05:05 11/18/17 11/19/17 11/20/17 05:59 05:59 05:59 Intake Total 1800 2750 Output Total 900 1300 Balance 900 1450 C-Reactive Protein 352.5 mg/L (<10.0) H 11/16/17 22:45 arm cultures with rare Staph aureus - Physical Exam General Appearance: no apparent distress, obese EENT: pharynx normal Respiratory: lungs clear Cardiac/Chest: regular rate, rhythm Extremities: other ( right upper extremity with wound VAC in place. Some surrounding erythema that is tender. No bullae. Sensation intact. Arm is quite swollen as is his hand. Able to lift his arm without pain in the shoulder joint whatsoever. No obvious abnormality of the elbow joint With excellent range of motion.) Skin: other ( Multiple old tattoos), No rash ICD10 Worksheet Patient Problems: Problems Problem Status Onset Hyperglycemia due to type 2 diabetes mellitus Acute Leukocytosis Acute Right arm cellulitis Acute Alcohol abuse Acute Alcohol dependence Acute Alcohol intoxication Acute Altered mental status Acute Atelectasis Acute Bronchitis Acute Diabetic foot ulcer Acute Hyperglycemia Acute Osteomyelitis Acute Pneumonia Acute
--- NOTE | 2017-11-19 14:46 | ASMTCMCOM ---
CM Note CM Note Notes: Patient needs continuing inpatient care for IV ABX, wound vac, and DM control. PT is recommending SNF rehab which patient can do at [facility] where he is a resident. CM will follow. Date Signed: 11/19/2017 02:46 PM Electronically Signed By:Tali Barrientos LCSW
[2017-11-19 15:04] LABS: HIV TYPE 1 AND 2 NEGATIVE (NEGATIVE)
[2017-11-19] MEDS: morphINE SR 15 MG TAB PO SCH (21:46)
[2017-11-20] MEDS: PIPERACILLIN/TAZO 3.375 GM/DEX 50 ML IV SCH ×3 (00:56→11:01)
[2017-11-20] MEDS: VANCOMYCIN 1.25 GM in D5W 250 ML IV SCH ×3 (01:44→18:06)
[2017-11-20 04:52] LABS: PLATELET COUNT 198 10^3/uL (150-400)
[2017-11-20] MEDS: LEVOTHYROXINE 150 MCG TAB PO SCH (05:41)
[2017-11-20] MEDS: CLINDAMYCIN 600 MG/DEXTROSE 50 ML IV SCH ×3 (06:33→21:03)
[2017-11-20] MEDS: ENOXAPARIN 40 MG/0.4 ML SYR SC SCH (09:07)
[2017-11-20] MEDS: GABAPENTIN 300 MG CAP PO SCH ×3 (09:07→21:03)
[2017-11-20] MEDS: PANTOPRAZOLE SODIUM 40 MG TAB PO SCH (09:07)
[2017-11-20] MEDS: THIAMINE HCL 100 MG TAB PO SCH (09:07)
[2017-11-20] MEDS: POLYETHYLENE GLYCOL 3350 17 GM PKT PO SCH (09:07)
[2017-11-20] MEDS: INSULIN GLARGINE 100 UNITS/ML UNIT SC SCH ×2 (09:07→20:17)
[2017-11-20] MEDS: SENNOSIDES/DOCUSATE SODIUM TAB PO SCH ×2 (09:07→20:15)
[2017-11-20] MEDS: NICOTINE 21 MG/24 HR PATCH TD PRN (09:14)
[2017-11-20] MEDS: INSULIN LISPRO 100 UNIT/ML SC SCH ×3 (09:16→18:06)
--- NOTE | 2017-11-20 09:50 | PCMIDPN ---
Assessment/Plan: 1. Right upper extremity Type 2 necrotizing cellulitis status post incision and drainage: Cultures are now growing Clostridium perfringens, which is not a surprise. The patient is at risk for type two, or mixed, necrotizing cellulitis in the setting of his diabetes mellitus. He also describes antecedent trauma, with a 300 lb wheelchair falling on his arm prior to the development of this infection. Continue vancomycin pending susceptibility testing of the Staph aureus, Pipracil in/tazobactam, and clindamycin to diminish toxin production from Staph aureus. Hopefully can tailor antibiotics to something like Ertapenem if the Staph aureus is susceptible moving forward. At this point in time, do not feel that he necessitates a repeat washout given clinical improvement. HIV negative. 2. Miscellaneous: Patient's creatinine jumped to 1.4 yesterday. Will need to repeat this today and follow closely in the setting of increased nephrotoxicity with vancomycin and Zosyn together. Vancomycin trough was okay. Subjective: Feels somewhat tired this morning, but his arm is improving. Less painful. No diarrhea on the antibiotics. Tells me that the 300 lb wheelchair fell on his arm prior to this occurring. Objective: Vancomycin 1.25 g IV q.8 hours day 3 Zosyn 3.375 g IV q.6 hours day 3 Clindamycin 600 mg IV q.8 hours day 3 T-max 37.2degrees Vital Signs Temp Pulse Resp BP Pulse Ox 36.8 C 73 16 108/83 H 96 11/20/17 07:54 11/20/17 07:54 11/20/17 07:54 11/20/17 07:54 11/20/17 07:54 Microbiology 11/17/17 02:15 Gram Stain - Final Arm - Tissue Laboratory Results 11/20/17 04:40 11/20/17 04:40 11/19/17 11/20/17 11/21/17 05:59 05:59 05:59 Intake Total 2750 1670 Output Total 1300 3850 700 Balance 1450 -2180 -700 C-Reactive Protein 352.5 mg/L (<10.0) H 11/16/17 22:45 Arm cultures with rare Staph aureus and 3+ Clostridium perfringens Blood cultures remain negative - Physical Exam General Appearance: no apparent distress, obese EENT: No thrush Respiratory: lungs clear Extremities: other (Right upper extremity with wound VAC in place. Decreased surrounding erythema, with a more pinkish hue today. Not particularly tender. Arm remains swollen. No evidence of necrotic tissue, bullae or diminished sensation. PICC line left upper extremity looks fine.) Skin: other (Patient has several small eschars scattered throughout his body, none appear actively infected.) ICD10 Worksheet Patient Problems: Problems Problem Status Onset Hyperglycemia due to type 2 diabetes mellitus Acute Leukocytosis Acute Right arm cellulitis Acute Alcohol abuse Acute Alcohol dependence Acute Alcohol intoxication Acute Altered mental status Acute Atelectasis Acute Bronchitis Acute Diabetic foot ulcer Acute Hyperglycemia Acute Osteomyelitis Acute Pneumonia Acute
--- NOTE | 2017-11-20 09:54 | SOAPPROG ---
SOAP Progress Note Assessment/Plan: Assessment/Plan: 57yo M admitted with nec fasc of RUE. S/p debridement skin, soft tissue to fascia Continue wound vac RUE - change on Tuesday 11/21 Will assess at next wound vac change for possible STSG for closure of wound - will likely need 2 more weeks of wound vac. All surrounding infection needs to be gone prior to STSG and good granulation tissue at the base Continue IV antibiotics Appreciate ID and hospitalists S: patient reports tenderness to the area when moving his arm O: patient is sleeping in bed and awakens easily, is comfortable, NAD No increased WOB RUE edema and erythema of mid-arm, improved compared to admission. Veraflo wound vac in place. Near full ROM of RUE, limited due to edema/wound vac 11/20/17 09:47 11/20/17 10:18 Objective: Vital Signs Temp Pulse Resp BP Pulse Ox 36.8 C 73 16 108/83 H 96 11/20/17 07:54 11/20/17 07:54 11/20/17 07:54 11/20/17 07:54 11/20/17 07:54 Microbiology 11/17/17 02:15 Gram Stain - Final Arm - Tissue Laboratory Results 11/20/17 04:40 11/20/17 04:40 11/19/17 11/20/17 11/21/17 05:59 05:59 05:59 Intake Total 2750 1670 Output Total 1300 3850 700 Balance 1450 -2180 -700 PT 15.7 SEC (12.0-15.0) H 11/16/17 22:45 INR 1.23 (0.83-1.16) H 11/16/17 22:45 ICD10 Worksheet Patient Problems: Problems Problem Status Onset Hyperglycemia due to type 2 diabetes mellitus Acute Leukocytosis Acute Right arm cellulitis Acute Alcohol abuse Acute Alcohol dependence Acute Alcohol intoxication Acute Altered mental status Acute Atelectasis Acute Bronchitis Acute Diabetic foot ulcer Acute Hyperglycemia Acute Osteomyelitis Acute Pneumonia Acute
[2017-11-20] MEDS: oxyCODONE IR 5 MG TAB PO PRN ×2 (15:43→20:15)
[2017-11-20] MEDS: ERTAPENEM 1 GM VIAL IVP SCH (16:52)
[2017-11-20] MEDS: morphINE SR 15 MG TAB PO SCH (20:15)
[2017-11-21] MEDS: oxyCODONE IR 5 MG TAB PO PRN ×5 (00:47→21:01)
[2017-11-21] MEDS: LEVOTHYROXINE 150 MCG TAB PO SCH (05:31)
[2017-11-21] MEDS: CLINDAMYCIN 600 MG/DEXTROSE 50 ML IV SCH ×2 (05:32→13:15)
[2017-11-21] MEDS: GABAPENTIN 300 MG CAP PO SCH ×3 (08:17→21:01)
[2017-11-21] MEDS: ENOXAPARIN 40 MG/0.4 ML SYR SC SCH (08:17)
[2017-11-21] MEDS: INSULIN GLARGINE 100 UNITS/ML UNIT SC SCH ×2 (08:17→20:59)
[2017-11-21] MEDS: PANTOPRAZOLE SODIUM 40 MG TAB PO SCH (08:17)
[2017-11-21] MEDS: SENNOSIDES/DOCUSATE SODIUM TAB PO SCH ×2 (08:18→21:00)
[2017-11-21] MEDS: VANCOMYCIN 1.25 GM in D5W 250 ML IV SCH ×2 (08:18→20:58)
[2017-11-21] MEDS: POLYETHYLENE GLYCOL 3350 17 GM PKT PO SCH (08:18)
[2017-11-21] MEDS: THIAMINE HCL 100 MG TAB PO SCH (08:18)
[2017-11-21] MEDS: NICOTINE 21 MG/24 HR PATCH TD PRN (08:30)
[2017-11-21] MEDS: INSULIN LISPRO 100 UNIT/ML SC SCH ×3 (08:34→18:02)
--- NOTE | 2017-11-21 10:28 | SOAPPROG ---
SOAP Progress Note Assessment/Plan: Assessment/Plan: 57yo M admitted with nec fasc of RUE. S/p debridement skin, soft tissue to fascia Continue wound vac RUE - change on Wed Much improvement in wound. Could be ready for graft in next 1-2 weeks. All surrounding infection needs to be gone prior to STSG and good granulation tissue at the base Continue IV antibiotics Appreciate ID and hospitalists S: improved today O: awake, is comfortable, NAD No increased WOB RUE edema and erythema of mid-arm, continues to improve. Veraflo wound vac changed. Some slough distally, otherwise clean. good ROM of RUE, 11/20/17 09:47 11/20/17 10:18 11/21/17 10:26 Objective: Vital Signs Temp Pulse Resp BP Pulse Ox 36.6 C 66 16 97/78 L 91 L 11/21/17 07:36 11/21/17 07:36 11/21/17 07:36 11/21/17 07:36 11/21/17 07:36 Microbiology 11/17/17 02:15 Gram Stain - Final Arm - Tissue Laboratory Results 11/20/17 04:40 11/20/17 11:00 11/20/17 11/21/17 11/22/17 05:59 05:59 05:59 Intake Total 1670 2450 Output Total 3850 1525 Balance -2180 925 PT 15.7 SEC (12.0-15.0) H 11/16/17 22:45 INR 1.23 (0.83-1.16) H 11/16/17 22:45 ICD10 Worksheet Patient Problems: Problems Problem Status Onset Hyperglycemia due to type 2 diabetes mellitus Acute Leukocytosis Acute Right arm cellulitis Acute Alcohol abuse Acute Alcohol dependence Acute Alcohol intoxication Acute Altered mental status Acute Atelectasis Acute Bronchitis Acute Diabetic foot ulcer Acute Hyperglycemia Acute Osteomyelitis Acute Pneumonia Acute
--- NOTE | 2017-11-21 12:06 | WOCRNPDOC ---
[facility] Advanced Assessment Note - Skin Integrity Problem, Advanced Assess Left Anterior Lower Arm Dressing Type: Black Vac Foam (x1), Wound Vac Dressing Description: Clean/Dry, Intact Exudate Amount: Moderate Exudate Characteristic(s): Serosanguinous Integumentary Issue Intervention: Dressing Changed Farheen Wound Tissue: Erythema Farheen Wound Swelling: Moderate Wound Bed Color: Red, Yellow Wound Bed Constitution: Granulation Tissue (60%), Adhered Slough (40%) Skin Integrity Problem Comment: Veraflo cleanse restarted with base of miller dimpled foam and a second of the thin miller applied (x2). suction and settings restarted. No leaks noted.Rounded with Dr. Foster and Allyson FRAUSTO. Vac change due Wed.
--- NOTE | 2017-11-21 13:40 | PCMIDPN ---
Assessment/Plan: 1. Right upper extremity Type 2 necrotizing cellulitis status post incision and drainage: Will discontinue clindamycin, and continue vancomycin and ertapenem. Vancomycin changed to every 12 hr given high trough and increasing creatinine on q.8 hours dosing. Repeat serum creatinine today. His wound has shown significant improvement over the past 24 hr. Doubt he will need repeat debridement. 2. Acute kidney injury: Please see above. Will repeat serum creatinine today. Vancomycin dose adjusted. 3. Lip swelling/ulcerations: Lower lip was swabbed for HSV PCR. The patient was instructed to stop biting his lips. 11/21/17 13:36 Subjective: Vancomycin trough was quite high at 26. Dose changed to q.12 hours. The patient had his wound VAC changed today. Overall he feels much better. No diarrhea on the antibiotics. His lower lip is quite swollen, with denuded epithelium and bleeding. The patient mitts to biting and chewing on his lower lip, and peeling off the epithelial layer. He denies any history of cold sores. No diarrhea on the antibiotics. Objective: Clindamycin 600 mg IV q.8 hours day 4 line ertapenem 1 g IV daily day 2 ( antibiotics day 4) Vancomycin 1.25 g IV q.12 hours day for Afebrile Vital Signs Temp Pulse Resp BP Pulse Ox 36.6 C 66 16 97/78 L 91 L 11/21/17 07:36 11/21/17 07:36 11/21/17 07:36 11/21/17 07:36 11/21/17 07:36 Microbiology 11/17/17 02:15 Gram Stain - Final Arm - Tissue Laboratory Results 11/20/17 04:40 11/20/17 11:00 11/20/17 11/21/17 11/22/17 05:59 05:59 05:59 Intake Total 1670 2450 Output Total 3850 1525 900 Balance -2180 925 -900 C-Reactive Protein 352.5 mg/L (<10.0) H 11/16/17 22:45 Arm cultures with Clostridium perfringens and rare MRSA Blood sugars negative - Physical Exam General Appearance: alert, no apparent distress EENT: other (Lower lip is quite swollen, with denuded epithelium an active bleeding. Difficult to see discrete ulcerations. No oral thrush. He is missing his teeth.) Extremities: other (Left arm PICC looks fine. Right arm with extensive wound VAC in place. The tissues surrounding the wound VAC shows improvement, with pinkish erythema and decreased tenderness. No crepitus. His hand is still fairly swollen.) Skin: No rash ICD10 Worksheet Patient Problems: Problems Problem Status Onset Hyperglycemia due to type 2 diabetes mellitus Acute Leukocytosis Acute Right arm cellulitis Acute Alcohol abuse Acute Alcohol dependence Acute Alcohol intoxication Acute Altered mental status Acute Atelectasis Acute Bronchitis Acute Diabetic foot ulcer Acute Hyperglycemia Acute Osteomyelitis Acute Pneumonia Acute
[2017-11-21] MEDS ORDERED: INSULIN GLARGINE 100 UNITS/ML UNIT SC SCH (15:24)
--- NOTE | 2017-11-21 15:29 | HOSPPROG ---
Hospitalist Progress Note Assessment/Plan: #Necrotizing right arm infection: debrided by Dr. Foster 11/17/17 -Staph aureus/Clostridium on culture. Holding Vanc with level of 26. Cont Ertapenem -blood cultures negative -MWF wound vac changes #YECENIA: Vanc vs dehydration? Urine lytes pending. IVFs if pre-renal. Repeat BMP in morning #Uncontrolled DM: will reduce glargine to 20 BID with YECENIA. Will need strict control with acute infection. (home dose 37 BID) #Hypothyroidism: LT4 #Tobacco abuse: angela patch #DVT ppx: Lovenox #Disp: cont inpatient admission for IV abx, wound vac, DM control Subjective: bleeding blisters on lips. Objective: Vital Signs Temp Pulse Resp BP Pulse Ox 35.6 C L 66 12 132/79 H 94 11/21/17 15:04 11/21/17 15:04 11/21/17 15:04 11/21/17 15:04 11/21/17 15:04 Microbiology 11/17/17 02:15 Gram Stain - Final Arm - Tissue Laboratory Results 11/20/17 04:40 11/21/17 13:32 11/20/17 11/21/17 11/22/17 05:59 05:59 05:59 Intake Total 1670 2450 Output Total 3850 1525 900 Balance -2180 925 -900 PT 15.7 SEC (12.0-15.0) H 11/16/17 22:45 INR 1.23 (0.83-1.16) H 11/16/17 22:45 - Time Spent With Patient Time Spent with Patient: greater than 25 minutes Time Spent with Patient: Greater than 25 minutes spent on this patients care, greater than 50% of time spent counseling, educating, and coordinating care regarding the above mentioned plan. - Physical Exam Constitutional: no apparent distress, unkempt Ears, Nose, Mouth, Throat: other (bleeding ulcerations lips. Lower lip is swollen) Cardiovascular: regular rate and rhythym Respiratory: no respiratory distress Gastrointestinal: normoactive bowel sounds, soft, non-tender abdomen Genitourinary: No garcia in urethra Musculoskeletal: other (right arm wound vac in place. Mild erythema around vac and min TTP. Arm/hand swollen, but palpable pulses) Neurologic: AAOx3, CN II-XII Intact Psychiatric: interacting appropriately ICD10 Worksheet Patient Problems: Problems Problem Status Onset Hyperglycemia due to type 2 diabetes mellitus Acute Leukocytosis Acute Right arm cellulitis Acute Alcohol abuse Acute Alcohol dependence Acute Alcohol intoxication Acute Altered mental status Acute Atelectasis Acute Bronchitis Acute Diabetic foot ulcer Acute Hyperglycemia Acute Osteomyelitis Acute Pneumonia Acute
[2017-11-21] MEDS: ERTAPENEM 1 GM VIAL IVP SCH (17:23)
[2017-11-21] MEDS: morphINE SR 15 MG TAB PO SCH (20:59)
[2017-11-21] MEDS ORDERED: LR 1,000 ML IV SCH (21:00)
[2017-11-22] MEDS: oxyCODONE IR 5 MG TAB PO PRN ×4 (00:53→22:11)
[2017-11-22] MEDS: LEVOTHYROXINE 150 MCG TAB PO SCH (05:24)
[2017-11-22] MEDS: INSULIN LISPRO 100 UNIT/ML SC SCH ×3 (08:20→18:32)
[2017-11-22] MEDS: THIAMINE HCL 100 MG TAB PO SCH (08:40)
[2017-11-22] MEDS: ENOXAPARIN 40 MG/0.4 ML SYR SC SCH (08:40)
[2017-11-22] MEDS: PANTOPRAZOLE SODIUM 40 MG TAB PO SCH (08:40)
[2017-11-22] MEDS: SENNOSIDES/DOCUSATE SODIUM TAB PO SCH ×2 (08:40→22:12)
[2017-11-22] MEDS: GABAPENTIN 300 MG CAP PO SCH ×3 (08:40→22:11)
[2017-11-22] MEDS: POLYETHYLENE GLYCOL 3350 17 GM PKT PO SCH (08:41)
--- NOTE | 2017-11-22 11:08 | PCMIDPN ---
Assessment/Plan: Assessment: R arm necrotizing soft tissue infection - s/p debridement. Cultures growing out MRSA and Clostridium perfringens. Doing much better. Area of soft tissue around wound does not appear to be significantly erythematous. Tolerating Vancomycin, and ertapenem without issues. Plan: 1. Continue Vancomycin, and ertapenem. 2. Follow clinical course. 11/22/17 17:39 Subjective: Patient resting in his hospital bed. He has no new complaints. Notes that his right arm is feeling improved. No fevers or chills. Objective: Vancomycin # 5 Ertapenem # 5 Vital Signs Temp Pulse Resp BP Pulse Ox 36.3 C 70 16 131/109 H 90 L 11/22/17 08:00 11/22/17 08:00 11/22/17 08:00 11/22/17 08:00 11/22/17 08:00 Microbiology 11/17/17 02:15 Gram Stain - Final Arm - Tissue Laboratory Results 11/20/17 04:40 11/22/17 05:20 11/21/17 11/22/17 11/23/17 05:59 05:59 05:59 Intake Total 2450 1325 240 Output Total 1525 2450 300 Balance 925 -1125 -60 C-Reactive Protein 352.5 mg/L (<10.0) H 11/16/17 22:45 - Physical Exam General Appearance: WD/WN, alert, no apparent distress, non-toxic Respiratory: lungs clear, normal breath sounds, No respiratory distress Cardiac/Chest: regular rate, rhythm, No tachycardia Extremities: non-tender, No normal inspection (Right upper extremity with VAC dressing over open wound. No significant surrounding john wound erythema or induration. Mildly tender to palpation.) Skin: normal color, warm/dry, No rash Neuro/Psych: alert, normal mood/affect, oriented x 3 ICD10 Worksheet Patient Problems: Problems Problem Status Onset Hyperglycemia due to type 2 diabetes mellitus Acute Leukocytosis Acute Right arm cellulitis Acute Alcohol abuse Acute Alcohol dependence Acute Alcohol intoxication Acute Altered mental status Acute Atelectasis Acute Bronchitis Acute Diabetic foot ulcer Acute Hyperglycemia Acute Osteomyelitis Acute Pneumonia Acute
[2017-11-22] MEDS: VANCOMYCIN 1.25 GM in D5W 250 ML IV SCH (11:11)
[2017-11-22] MEDS: VANCOMYCIN 750 MG in D5W 150 ML IV SCH ×2 (11:56→22:33)
[2017-11-22] MEDS: INSULIN GLARGINE 100 UNITS/ML UNIT SC SCH ×2 (13:19→22:33)
[2017-11-22] MEDS: NICOTINE 21 MG/24 HR PATCH TD PRN (13:30)
--- NOTE | 2017-11-22 14:00 | ASMTCMCOM ---
CM Note CM Note Notes: Updates sent to Jesse Ellis pt will return to BM when medically stable. Date Signed: 11/22/2017 02:00 PM Electronically Signed By:QUINN Enciso
--- NOTE | 2017-11-22 14:11 | SOAPPROG ---
SOAP Progress Note Assessment/Plan: Assessment: 57yo M admitted with nec fasc of RUE. S/p debridement skin, soft tissue to fascia Continue wound vac RUE - change MWF May ultimately require STSG for closure of wound - ideally 2 weeks, can be done as outpatient Continue IV antibiotics Appreciate ID and hospitalists Dispo: plan DC near end of this week. Can plan for skin graft in 2 weeks as outpatient. We will see on vac change days (next change wednesday). Call if any issues in the meantime. S: Sleeping during my visit. I did not awake O: laying in bed, comfortable, NAD No increased WOB RUE Veraflo wound vac in place to suction Objective: Vital Signs Temp Pulse Resp BP Pulse Ox 36.3 C 65 18 138/82 H 92 11/22/17 08:00 11/22/17 13:22 11/22/17 13:22 11/22/17 13:22 11/22/17 13:22 Microbiology 11/17/17 02:15 Gram Stain - Final Arm - Tissue Laboratory Results 11/20/17 04:40 11/22/17 05:20 11/21/17 11/22/17 11/23/17 05:59 05:59 05:59 Intake Total 2450 1325 240 Output Total 1525 2450 1300 Balance 925 -1125 -1060 PT 15.7 SEC (12.0-15.0) H 11/16/17 22:45 INR 1.23 (0.83-1.16) H 11/16/17 22:45 ICD10 Worksheet Patient Problems: Problems Problem Status Onset Hyperglycemia due to type 2 diabetes mellitus Acute Leukocytosis Acute Right arm cellulitis Acute Alcohol abuse Acute Alcohol dependence Acute Alcohol intoxication Acute Altered mental status Acute Atelectasis Acute Bronchitis Acute Diabetic foot ulcer Acute Hyperglycemia Acute Osteomyelitis Acute Pneumonia Acute
[2017-11-22] MEDS: ERTAPENEM 1 GM VIAL IVP SCH (16:34)
--- NOTE | 2017-11-22 18:39 | HOSPPROG ---
Hospitalist Progress Note Assessment/Plan: * Necrotizing fasciitis RUE s/p debridement -wound vac -invanz, IV Vanco -needs eventual skin graft - outpatient in 2 weeks * ARF -? IV Vanco * Urinary retention -start Flomax * DM II -reduced Lantus due to ARF * Tobacco dependence - patch * Lip ulcer - HSV PCR pending * Obesity BMI 35 * Polysubstance abuse - now living at [facility] Subjective: NO new complaints Objective: Vital Signs Temp Pulse Resp BP Pulse Ox 36 C 80 20 97/37 L 94 11/22/17 16:00 11/22/17 16:00 11/22/17 16:00 11/22/17 16:00 11/22/17 16:00 Microbiology 11/17/17 02:15 Gram Stain - Final Arm - Tissue Laboratory Results 11/20/17 04:40 11/22/17 05:20 11/21/17 11/22/17 11/23/17 05:59 05:59 05:59 Intake Total 2450 1325 240 Output Total 1525 2450 1300 Balance 925 -1125 -1060 PT 15.7 SEC (12.0-15.0) H 11/16/17 22:45 INR 1.23 (0.83-1.16) H 11/16/17 22:45 Renal US - elevated PVR CXR viewed, my personal interpretation is - negative - Physical Exam Constitutional: no apparent distress, appears nourished, not in pain Cardiovascular: regular rate and rhythym, no murmur, rub, or gallop Respiratory: no respiratory distress, no rales or rhonchi, clear to auscultation Gastrointestinal: normoactive bowel sounds, soft, non-tender abdomen, no palpable masses Skin: warm, erythema, induration, fluctuance, other (very TTP) Neurologic: AAOx3, sensation intact bilaterally Psychiatric: interacting appropriately, not anxious, not encephalopathic, thought process linear ICD10 Worksheet Patient Problems: Problems Problem Status Onset Hyperglycemia due to type 2 diabetes mellitus Acute Leukocytosis Acute Right arm cellulitis Acute Alcohol abuse Acute Alcohol dependence Acute Alcohol intoxication Acute Altered mental status Acute Atelectasis Acute Bronchitis Acute Diabetic foot ulcer Acute Hyperglycemia Acute Osteomyelitis Acute Pneumonia Acute
--- NOTE | 2017-11-22 21:27 | SOAPPROG ---
SOAP Progress Note Assessment/Plan: Assessment: 57-year-old male seen in conjunction with Karis VEGA. Status post necrotizing fasciitis of the right upper extremity Wound vac in place and functioning No new issues Plan: Back change in 1-2 days/a ventral split-thickness skin graft 11/22/17 21:26 Objective: Vital Signs Temp Pulse Resp BP Pulse Ox 36.6 C 65 16 176/88 H 94 11/22/17 19:26 11/22/17 19:26 11/22/17 19:26 11/22/17 19:26 11/22/17 19:26 Microbiology 11/17/17 02:15 Gram Stain - Final Arm - Tissue Laboratory Results 11/20/17 04:40 11/22/17 05:20 11/21/17 11/22/17 11/23/17 05:59 05:59 05:59 Intake Total 2450 1325 740 Output Total 1525 2450 2550 Balance 925 -1125 -1810 PT 15.7 SEC (12.0-15.0) H 11/16/17 22:45 INR 1.23 (0.83-1.16) H 11/16/17 22:45 ICD10 Worksheet Patient Problems: Problems Problem Status Onset Hyperglycemia due to type 2 diabetes mellitus Acute Leukocytosis Acute Right arm cellulitis Acute Alcohol abuse Acute Alcohol dependence Acute Alcohol intoxication Acute Altered mental status Acute Atelectasis Acute Bronchitis Acute Diabetic foot ulcer Acute Hyperglycemia Acute Osteomyelitis Acute Pneumonia Acute
[2017-11-22] MEDS: morphINE SR 15 MG TAB PO SCH (22:12)
[2017-11-23] MEDS: LEVOTHYROXINE 150 MCG TAB PO SCH (05:25)
[2017-11-23] MEDS: oxyCODONE IR 5 MG TAB PO PRN ×5 (05:26→21:05)
[2017-11-23 05:51] LABS: PLATELET COUNT 274 10^3/uL (150-400)
[2017-11-23] MEDS: POLYETHYLENE GLYCOL 3350 17 GM PKT PO SCH ×2 (08:46→08:56)
[2017-11-23] MEDS: GABAPENTIN 300 MG CAP PO SCH ×3 (08:47→20:57)
[2017-11-23] MEDS: TAMSULOSIN HCL 0.4 MG CAP PO SCH (08:47)
[2017-11-23] MEDS: PANTOPRAZOLE SODIUM 40 MG TAB PO SCH (08:47)
[2017-11-23] MEDS: SENNOSIDES/DOCUSATE SODIUM TAB PO SCH ×2 (08:47→20:57)
[2017-11-23] MEDS: INSULIN GLARGINE 100 UNITS/ML UNIT SC SCH ×2 (08:47→21:18)
[2017-11-23] MEDS: THIAMINE HCL 100 MG TAB PO SCH (08:47)
[2017-11-23] MEDS: ENOXAPARIN 40 MG/0.4 ML SYR SC SCH (08:47)
[2017-11-23] MEDS: INSULIN LISPRO 100 UNIT/ML SC SCH ×3 (08:56→17:30)
[2017-11-23] MEDS: VANCOMYCIN 750 MG in D5W 150 ML IV SCH ×2 (10:56→21:18)
[2017-11-23] MEDS: NICOTINE 21 MG/24 HR PATCH TD PRN (11:04)
--- NOTE | 2017-11-23 15:16 | HOSPPROG ---
Hospitalist Progress Note Assessment/Plan: * Necrotizing fasciitis RUE s/p debridement -wound vac -invanz, IV Vanco -needs eventual skin graft - outpatient in 2 weeks * ARF -? 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 Subjective: No complaints Objective: Vital Signs Temp Pulse Resp BP Pulse Ox 36.7 C 75 18 96/46 L 89 L 11/23/17 07:37 11/23/17 07:37 11/23/17 07:37 11/23/17 07:37 11/23/17 07:37 Microbiology 11/17/17 02:15 Gram Stain - Final Arm - Tissue Laboratory Results 11/23/17 05:20 11/23/17 05:20 11/22/17 11/23/17 11/24/17 05:59 05:59 05:59 Intake Total 1325 1390 Output Total 2450 3900 Balance -1125 -2510 PT 15.7 SEC (12.0-15.0) H 11/16/17 22:45 INR 1.23 (0.83-1.16) H 11/16/17 22:45 - Physical Exam Constitutional: no apparent distress, appears nourished, not in pain Cardiovascular: regular rate and rhythym, no murmur, rub, or gallop Respiratory: no respiratory distress, no rales or rhonchi, clear to auscultation Gastrointestinal: normoactive bowel sounds, soft, non-tender abdomen, no palpable masses Skin: no rashes or abrasions, no fluctuance, no induration Neurologic: AAOx3, sensation intact bilaterally Psychiatric: interacting appropriately, not anxious, not encephalopathic, thought process linear ICD10 Worksheet Patient Problems: Problems Problem Status Onset Hyperglycemia due to type 2 diabetes mellitus Acute Leukocytosis Acute Right arm cellulitis Acute Alcohol abuse Acute Alcohol dependence Acute Alcohol intoxication Acute Altered mental status Acute Atelectasis Acute Bronchitis Acute Diabetic foot ulcer Acute Hyperglycemia Acute Osteomyelitis Acute Pneumonia Acute
--- NOTE | 2017-11-23 15:32 | WOCRNPDOC ---
[facility] Advanced Assessment Note - Skin Integrity Problem, Advanced Assess Lip Blister Dressing Type: Open to Air Exudate Amount: Scant Exudate Color: Red Exudate Characteristic(s): Bloody Farheen Wound Swelling: Mild Wound Bed Color: Red Wound Bed Constitution: Red/Goss - Non Granular Tissue Site Odor: None Site Measurement - Head-to-Toe Length X Width X Depth (cm): R side (lower lip): [id number]. L side (lower lip) 1cmx1.9cmx0.1cm Skin Integrity Problem Comment: Two areas of partial-thickness tissue loss noted on patient's lower lip, which he reports are the result of sucking on and picking at the tissue. No blister noted at this time. Upon assessment, both wounds were bloody where patient had picked the scabs. Recommend applying a very thick layer of RadiaBlock lip balm (found in clean supply) to wounds to protect them from moisture r/t sucking. Report given to teacher adult education Anna. Wound care does not need to follow patient for these wounds ongoing.
--- NOTE | 2017-11-23 15:43 | PCMIDPN ---
Assessment/Plan: Assessment/Plan: 1. Right upper extremity Type 2 necrotizing cellulitis status post incision and drainage: - currenlty on VAnco plus invanz -Cx with MrSa and C.perfringens. -wound management wiht wound vac - Continue with current care. - lahs today noted. wbc stable. Creatinine still elevated at 1.5. Continue to monitor closely - last trough on 11/22/---at 14.5 -Recheck trough later in week. Meds vanco 750mg q12- invanz 1g daily Subjective: afebrile. pateint feels better overall. denies pain involving RUE. wound vac noted. denies sob, abd pain or diarrhea. Objective: Vital Signs Temp Pulse Resp BP Pulse Ox 36.8 C 72 18 100/61 98 11/23/17 15:25 11/23/17 15:25 11/23/17 15:25 11/23/17 15:25 11/23/17 15:25 Microbiology 11/17/17 02:15 Gram Stain - Final Arm - Tissue Laboratory Results 11/23/17 05:20 11/23/17 05:20 11/22/17 11/23/17 11/24/17 05:59 05:59 05:59 Intake Total 1325 1390 Output Total 2450 3900 Balance -1125 -2510 C-Reactive Protein 352.5 mg/L (<10.0) H 11/16/17 22:45 - Physical Exam General Appearance: alert, no apparent distress Respiratory: lungs clear Cardiac/Chest: regular rate, rhythm Extremities: swelling, other (right uppper extremity wiht moderate large wound with wound vac. some wrinkling noted on skin. brawny discoloration but not acute cellulitis noted.) Abdomen: normal bowel sounds, non-tender, soft, No distended Skin: No rash ICD10 Worksheet Patient Problems: Problems Problem Status Onset Hyperglycemia due to type 2 diabetes mellitus Acute Leukocytosis Acute Right arm cellulitis Acute Alcohol abuse Acute Alcohol dependence Acute Alcohol intoxication Acute Altered mental status Acute Atelectasis Acute Bronchitis Acute Diabetic foot ulcer Acute Hyperglycemia Acute Osteomyelitis Acute Pneumonia Acute
[2017-11-23] MEDS: ERTAPENEM 1 GM VIAL IVP SCH (17:30)
[2017-11-23] MEDS: morphINE SR 15 MG TAB PO SCH (20:57)
[2017-11-24] MEDS: oxyCODONE IR 5 MG TAB PO PRN ×5 (01:43→21:41)
[2017-11-24] MEDS: LEVOTHYROXINE 150 MCG TAB PO SCH (05:35)
[2017-11-24] MEDS: INSULIN LISPRO 100 UNIT/ML SC SCH ×3 (08:51→17:30)
[2017-11-24] MEDS: SENNOSIDES/DOCUSATE SODIUM TAB PO SCH ×2 (08:52→21:33)
[2017-11-24] MEDS: PANTOPRAZOLE SODIUM 40 MG TAB PO SCH (08:52)
[2017-11-24] MEDS: INSULIN GLARGINE 100 UNITS/ML UNIT SC SCH ×2 (08:52→21:41)
[2017-11-24] MEDS: ENOXAPARIN 40 MG/0.4 ML SYR SC SCH (08:52)
[2017-11-24] MEDS: GABAPENTIN 300 MG CAP PO SCH ×3 (08:52→21:33)
[2017-11-24] MEDS: POLYETHYLENE GLYCOL 3350 17 GM PKT PO SCH (08:53)
[2017-11-24] MEDS: TAMSULOSIN HCL 0.4 MG CAP PO SCH (08:53)
[2017-11-24] MEDS: THIAMINE HCL 100 MG TAB PO SCH (08:53)
--- NOTE | 2017-11-24 09:16 | SOAPPROG ---
SOAP Progress Note Assessment/Plan: Assessment: 57yo M admitted with nec fasc of RUE. S/p debridement skin, soft tissue to fascia Wound vac changed today - regular wound vac from veraflo. Continue IV antibiotics Appreciate ID and hospitalists Dispo: plan DC near end of this week. Can plan for skin graft in 2 weeks as outpatient. Seen c Dr. Foster S: no issues with pain during dressing change O: sitting upright in bed, comfortable, NAD No increased WOB RUE wound 12 x 7.8 x 1.4cm, 40% slough. WOund vac reapplied with ux specialist Objective: Vital Signs Temp Pulse Resp BP Pulse Ox 36.4 C 80 22 H 103/79 94 11/24/17 08:00 11/24/17 08:00 11/24/17 08:00 11/24/17 08:00 11/24/17 08:00 Microbiology 11/17/17 02:15 Gram Stain - Final Arm - Tissue Laboratory Results 11/23/17 05:20 11/24/17 05:40 11/23/17 11/24/17 11/25/17 05:59 05:59 05:59 Intake Total 1390 450 Output Total 3900 1500 Balance -2510 -1050 PT 15.7 SEC (12.0-15.0) H 11/16/17 22:45 INR 1.23 (0.83-1.16) H 11/16/17 22:45 ICD10 Worksheet Patient Problems: Problems Problem Status Onset Alcohol abuse Acute Alcohol dependence Acute Alcohol intoxication Acute Altered mental status Acute Atelectasis Acute Bronchitis Acute Diabetic foot ulcer Acute Hyperglycemia Acute Hyperglycemia due to type 2 diabetes mellitus Acute Leukocytosis Acute Osteomyelitis Acute Pneumonia Acute Right arm cellulitis Acute
--- NOTE | 2017-11-24 09:31 | PCMIDPN ---
Assessment/Plan: # Necrotizing infection RUE s/p debridement, primary pathogen Clostridium perfringens. 40% slough at base of wound but continue management with wound vac. Evidence points to clinical improvement - this is my first exam - but others report significant decrease in john-wound erythema. Right radial Pulse intact, slower cap refill. AF. Normal wbc --dc ertapenem --continue vancomycin for coverage of primary pathogen - clostridium, as well as MRSA --check Vanco trough tomorrow # Renal insufficiency, CrCl >50, creatinine stable today # HSV labialis: start Valtrex 1gm PO BID x 7 days. No dose reduction for creatinine clearance Medication Abx #8 Vancomycin 750 mg IV q.12 Microbiology 11/17 arm tissue: Clostridium perfringens and MRSA 11/16 blood cultures (2) negative Subjective: Patient with minimal complaints No abdominal pain, diarrhea, rash Objective: Vital Signs Temp Pulse Resp BP Pulse Ox 36.4 C 80 22 H 103/79 94 11/24/17 08:00 11/24/17 08:00 11/24/17 08:00 11/24/17 08:00 11/24/17 08:00 Microbiology 11/17/17 02:15 Gram Stain - Final Arm - Tissue Laboratory Results 11/23/17 05:20 11/24/17 05:40 11/23/17 11/24/17 11/25/17 05:59 05:59 05:59 Intake Total 1390 450 Output Total 3900 1500 Balance -2510 -1050 C-Reactive Protein 352.5 mg/L (<10.0) H 11/16/17 22:45 - Physical Exam General Appearance: alert, no apparent distress, obese EENT: poor dentition Respiratory: lungs clear, No accessory muscle use Cardiac/Chest: regular rate, rhythm Extremities: erythema (Right forearm with some faint john wound erythema, wound base with some slough, no purulence, john wound area remains indurated. 1+ radial pulse), other (R BKA, L great toe amp) Abdomen: normal bowel sounds, non-tender, soft Neuro/Psych: alert, depressed affect - Line/s LUE PICC Lines: No drainage, No erythema - Time Spent With Patient Time Spent with Patient: greater than 35 minutes (Care coordinated with Dr. Fermin and wound healing teen) Time Spent with Patient: Greater than 35 minutes spent on this patients care, greater than 50% of time spent counseling, educating, and coordinating care regarding the above mentioned plan. ICD10 Worksheet Patient Problems: Problems Problem Status Onset Hyperglycemia due to type 2 diabetes mellitus Acute Leukocytosis Acute Right arm cellulitis Acute Alcohol abuse Acute Alcohol dependence Acute Alcohol intoxication Acute Altered mental status Acute Atelectasis Acute Bronchitis Acute Diabetic foot ulcer Acute Hyperglycemia Acute Osteomyelitis Acute Pneumonia Acute
--- NOTE | 2017-11-24 09:57 | WOCRNPDOC ---
WOCRN Advanced Assessment Note - Skin Integrity Problem, Advanced Assess Right Arm Dressing Type: Black Vac Foam (x2), Wound Vac Dressing Description: Clean/Dry, Intact Exudate Amount: Scant Exudate Characteristic(s): Serosanguinous Integumentary Issue Intervention: Dressing Changed Farheen Wound Tissue: Erythema, Swollen Farheen Wound Swelling: Moderate Wound Bed Constitution: Granulation Tissue (50%), Smooth Tissue (10%), Adhered Slough (40%) Wound Edges: Attached, Irregular Site Measurement - Head-to-Toe Length X Width X Depth (cm): 12x7.8x1.4 Skin Integrity Problem Comment: Vashe D/C'd. Wound bed visualized by Dr. Foster. Replaced with medium black simplace foam x1 piece. Vac restarted at -125 mm Hg continuous suction without leaks.
[2017-11-24] MEDS: VANCOMYCIN 750 MG in D5W 150 ML IV SCH ×2 (10:10→21:34)
[2017-11-24] MEDS: valACYclovir 500 MG TAB PO SCH ×2 (10:10→21:32)
--- NOTE | 2017-11-24 15:13 | HOSPPROG ---
Hospitalist Progress Note Assessment/Plan: * Necrotizing fasciitis RUE s/p debridement -wound vac - change every Wednesday -IV Vanco -needs eventual skin graft - outpatient in 2 weeks -discharge back to soon * ARF -? 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 * HSV labialis - Valtrex x 7 days Subjective: No complaints Objective: Vital Signs Temp Pulse Resp BP Pulse Ox 36.4 C 80 22 H 103/79 94 11/24/17 08:00 11/24/17 08:00 11/24/17 08:00 11/24/17 08:00 11/24/17 08:00 Microbiology 11/17/17 02:15 Gram Stain - Final Arm - Tissue Anaerobic Culture - Final MRSA Clostridium Perfringens Laboratory Results 11/23/17 05:20 11/24/17 05:40 11/23/17 11/24/17 11/25/17 05:59 05:59 05:59 Intake Total 1390 450 Output Total 3900 1500 600 Balance -2510 -1050 -600 PT 15.7 SEC (12.0-15.0) H 11/16/17 22:45 INR 1.23 (0.83-1.16) H 11/16/17 22:45 - Physical Exam Constitutional: no apparent distress, appears nourished, not in pain Cardiovascular: regular rate and rhythym, no murmur, rub, or gallop Respiratory: no respiratory distress, no rales or rhonchi, clear to auscultation Skin: other (much less tender today), No mottled, No erythema, No induration, No fluctuance Neurologic: AAOx3, sensation intact bilaterally Psychiatric: interacting appropriately, not anxious, not encephalopathic, thought process linear ICD10 Worksheet Patient Problems: Problems Problem Status Onset Hyperglycemia due to type 2 diabetes mellitus Acute Leukocytosis Acute Right arm cellulitis Acute Alcohol abuse Acute Alcohol dependence Acute Alcohol intoxication Acute Altered mental status Acute Atelectasis Acute Bronchitis Acute Diabetic foot ulcer Acute Hyperglycemia Acute Osteomyelitis Acute Pneumonia Acute
[2017-11-24] MEDS: morphINE SR 15 MG TAB PO SCH (21:33)
[2017-11-25] MEDS: oxyCODONE IR 5 MG TAB PO PRN ×3 (05:27→15:40)
[2017-11-25] MEDS: LEVOTHYROXINE 150 MCG TAB PO SCH (05:27)
[2017-11-25 08:43] VITALS: BP 118/87; PULSE 78; RESP 16; TEMP 98.2; O2SAT 92
[2017-11-25] MEDS: SENNOSIDES/DOCUSATE SODIUM TAB PO SCH (08:50)
[2017-11-25] MEDS: THIAMINE HCL 100 MG TAB PO SCH (08:50)
[2017-11-25] MEDS: TAMSULOSIN HCL 0.4 MG CAP PO SCH (08:50)
[2017-11-25] MEDS: GABAPENTIN 300 MG CAP PO SCH ×2 (08:50→15:40)
[2017-11-25] MEDS: ENOXAPARIN 40 MG/0.4 ML SYR SC SCH (08:50)
[2017-11-25] MEDS: INSULIN LISPRO 100 UNIT/ML SC SCH ×2 (08:50→11:37)
[2017-11-25] MEDS: valACYclovir 500 MG TAB PO SCH (08:50)
[2017-11-25] MEDS: PANTOPRAZOLE SODIUM 40 MG TAB PO SCH (08:50)
[2017-11-25] MEDS: POLYETHYLENE GLYCOL 3350 17 GM PKT PO SCH (08:51)
[2017-11-25] MEDS: INSULIN GLARGINE 100 UNITS/ML UNIT SC SCH (09:22)
[2017-11-25] MEDS: VANCOMYCIN 750 MG in D5W 150 ML IV SCH (09:27)
[2017-11-25] MEDS: NICOTINE 21 MG/24 HR PATCH TD PRN (10:21)
--- NOTE | 2017-11-25 11:20 | ASMTCMCOM ---
CM Note CM Note Notes: DC date still unclear, CM sent updated notes to [facility] where pt resides. DC Plan: [facility] Date Signed: 11/25/2017 11:19 AM Electronically Signed By:Samantha Meyer RN
--- NOTE | 2017-11-25 15:14 | PDIAF ---
- Diagnosis Diagnosis: Necrotizing fasciitis Code Status: Full Code - Medication Management Discharge Medications: Medications to Continue on Transfer Polyethylene Glycol 3350 [Miralax 17 gm (*)] 17 gm PO DAILY #0 pkt 07/21/16 [ Last Taken 11/16/17] Thiamine HCl [Vitamin B-1] 100 mg PO DAILY #0 tab 07/21/16 [Last Taken 11/16/17] amLODIPine BESYLATE [Norvasc 5 mg (*)] 5 mg PO DAILY #0 tab 07/21/16 [Last Taken 11/16/17] Insulin Aspart [Novolog Flexpen] 6 - 14 unit SQ TIDMEAL 08/26/16 [Last Taken 07/26 17:00 10 units] Insulin Detemir [Levemir Flextouch] 37 unit SQ BID 08/26/16 [Last Taken 21:00] Nicotine [Nicoderm Cq 21 mg (*)] 21 mg TD DAILY PRN 08/26/16 [Last Taken Unknown ] Omeprazole 20 mg PO DAILY 08/26/16 [Last Taken 11/16/17] Sennosides/Docusate Sodium [Senokot-S] 1 tab PO BID 08/26/16 [Last Taken 21:00] Gabapentin [Neurontin 300 MG (*)] 600 mg PO TID #0 cap 08/31/16 [Last Taken 07/26 21:00] Acetaminophen [Tylenol ES 500 mg (*)] 1,000 mg PO Q8HRS PRN 11/20/16 [Last Taken 11/16/17 08:00] morphINE SR [Ms Contin/Oramorph 15 mg (*)] 15 mg PO HS 11/20/16 [Last Taken 07/26] oxyCODONE IR [Oxycodone Ir (*)] 10 - 20 mg PO Q4HRS PRN 11/20/16 [Last Taken 07/26 20:00 20 mg] Albuterol [Proventil Inhaler HFA (*)] 2 puffs IH Q4HRS PRN 11/17/17 [Last Taken Unknown] Levothyroxine [Synthroid 150 mcg (*)] 150 mcg PO DAILY06 11/17/17 [Last Taken ] PARoxetine HCL [Paxil 30mg (*)] 30 mg PO DAILY 11/17/17 [Last Taken 11/16/17] tiZANidine HCL [Zanaflex 2MG (*)] 4 mg PO HS 11/17/17 [Last Taken 11/16/17] Senior Care Antibiotics: Vancomycin 750 mg IV Q 12 Senior Care Antibiotic Stop Date: 12/01/17 Discharge Medications: Refer to the Discharge Home Medication list for PRN reason. PICC Care - Routine: Yes - Orders Isolation Type: Contact Isolation - Labs/Radiology BMP Date: 11/29/17 (once) CBC w/diff Date: 11/29/17 (weekly wednesday) CMP Date: 11/29/17 (weekly wednesday) Vanco Trough Date and Time: 11/27/17 and 11/29/17 Call or Fax Lab and Imaging Results to: Wilder Hitchcock MD [facility] at fax [phone] - Follow Up Care Current Providers and Referrals: ADAM GHOSH [Other] Wilder Hitchcock MD [Medical Doctor] - 12/01/17 2:00 pm
--- NOTE | 2017-11-25 15:22 | PDIAF ---
- Diagnosis Diagnosis: Necrotizing fasciitis Code Status: Full Code - Medication Management Discharge Medications: Medications to Continue on Transfer Polyethylene Glycol 3350 [Miralax 17 gm (*)] 17 gm PO DAILY #0 pkt 07/21/16 [ Last Taken 11/16/17] Thiamine HCl [Vitamin B-1] 100 mg PO DAILY #0 tab 07/21/16 [Last Taken 11/16/17] amLODIPine BESYLATE [Norvasc 5 mg (*)] 5 mg PO DAILY #0 tab 07/21/16 [Last Taken 11/16/17] Insulin Aspart [Novolog Flexpen] 6 - 14 unit SQ TIDMEAL 08/26/16 [Last Taken 07/26 17:00 10 units] Insulin Detemir [Levemir Flextouch] 37 unit SQ BID 08/26/16 [Last Taken 21:00] Nicotine [Nicoderm Cq 21 mg (*)] 21 mg TD DAILY PRN 08/26/16 [Last Taken Unknown ] Omeprazole 20 mg PO DAILY 08/26/16 [Last Taken 11/16/17] Sennosides/Docusate Sodium [Senokot-S] 1 tab PO BID 08/26/16 [Last Taken 21:00] Gabapentin [Neurontin 300 MG (*)] 600 mg PO TID #0 cap 08/31/16 [Last Taken 07/26 21:00] Acetaminophen [Tylenol ES 500 mg (*)] 1,000 mg PO Q8HRS PRN 11/20/16 [Last Taken 11/16/17 08:00] morphINE SR [Ms Contin/Oramorph 15 mg (*)] 15 mg PO HS 11/20/16 [Last Taken 07/26] oxyCODONE IR [Oxycodone Ir (*)] 10 - 20 mg PO Q4HRS PRN 11/20/16 [Last Taken 07/26 20:00 20 mg] Albuterol [Proventil Inhaler HFA (*)] 2 puffs IH Q4HRS PRN 11/17/17 [Last Taken Unknown] Levothyroxine [Synthroid 150 mcg (*)] 150 mcg PO DAILY06 11/17/17 [Last Taken ] PARoxetine HCL [Paxil 30mg (*)] 30 mg PO DAILY 11/17/17 [Last Taken 11/16/17] tiZANidine HCL [Zanaflex 2MG (*)] 4 mg PO HS 11/17/17 [Last Taken 11/16/17] Tamsulosin HCl [Flomax 0.4 MG (*)] 0.4 mg PO DAILY #30 cap 11/25/17 [Last Taken Unknown] valACYclovir [Valtrex (*)] 1,000 mg PO Q12HRS #10 tab 11/25/17 [Last Taken Unknown] Woodyard Operator Antibiotics: Vancomycin 750 mg IV Q 12 Woodyard Operator Antibiotic Stop Date: 12/01/17 Discharge Medications: Refer to the Discharge Home Medication list for PRN reason. PICC Care - Routine: Yes - Orders Services needed: Physical Therapy, Occupational Therapy Isolation Type: Contact Isolation Diet Recommendation: no restrictions on diet Wound Care Instructions: Right forearm vac: Change MWF and prn. Setting: -125 mm Hg continuous. Activity/Weight Bearing Restrictions: Outpatient skin graft in [address] Foster Additional: Stop valtrex 12/01 - Labs/Radiology BMP Date: 11/29/17 (once) CBC w/diff Date: 11/29/17 (weekly wednesday) CMP Date: 11/29/17 (weekly wednesday) Vanco Trough Date and Time: 11/27/17 and 11/29/17 Call or Fax Lab and Imaging Results to: Wilder Hitchcock MD [facility] at fax [phone] - Follow Up Care Current Providers and Referrals: ADAM GHOSH [Other] Tabitha Foster MD [Medical Doctor] - 12/01/17 Wilder Hitchcock MD [Medical Doctor] - 12/01/17 2:00 pm [facility] [Clinic] - 12/01/17 (Wound vac changes on Wednesdays with Dr Foster at [facility].)
--- NOTE | 2017-11-25 23:44 | GDS ---
[f rep st] DISCHARGE SUMMARY DISCHARGE DIAGNOSES: 1. Necrotizing fasciitis of the right upper extremity, status post debridement. 2. Acute renal failure. 3. Urinary retention. 4. Diabetes type 2. 5. Tobacco dependence. 6. Obesity with body mass index of 35. 7. 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 8. Herpes simplex labialis. HISTORY: The patient is a 57-year-old male, who presented with necrotizing fasciitis of the right up per extremity. He underwent debridement. He now has a wound VAC. Infectious Disease has been follo wing. IV vancomycin will be continued. He will need to return to the [facility] for continuo us monitoring and plan for skin grafting in 2 weeks. The patient was noted to have some urinary retention during this hospitalization and started him on F stiven. Patient developed ulcerations of his lower lip, which PCR was positive for HSV, and he is now on a 7- day course of Valtrex. DISCHARGE MEDICATIONS: Please see computerized record for full detailed list. New medications: 1. IV vancomycin, per Infectious Disease. 2. Valtrex 1000 mg p.o. b.i.d. to complete 7 days of therapy. 3. Flomax 0.4 mg p.o. daily. ADDITIONAL DISCHARGE INSTRUCTIONS: 1. Vancomycin, stop date December 01, 2017. 2. Change wound VAC Wednesday, Wednesday, Wednesday. 3. Outpatient skin grafting in [address] Foster. 4. Follow up with the [facility] in 1 week. Greater than 30 minutes' time was spent arranging this discharge. Patient was seen and examined by nhan minor on the day of discharge. /[id number]/MODL
== END 2017-11-25 16:28 | DRG 501 ==
LOC: EDUNIT# → FSGY 11-17 00:53 → F2N 11-17 00:54 → UNDOADMIN 11-17 01:04 → F2N 11-17 01:04 → F3N 11-19 17:50 → F3E 11-22 15:17
PROVIDERS: ADMIT Student in an Organized Health Care Education/Training Program; ATTEND Student in an Organized Health Care Education/Training Program
PROC: 02HV33Z Insertion of Infusion Device into Superior Vena Cava, Percutaneous Approach (ICD-10-PCS; 2017-11-17)
PROC: 0KB90ZZ Excision of Right Lower Arm and Wrist Muscle, Open Approach (ICD-10-PCS; principal; 2017-11-17 01:45)
DX: M72.6 Necrotizing fasciitis (principal); N17.9 Acute kidney failure, unspecified; R33.9 Retention of urine, unspecified; E11.65 Type 2 diabetes mellitus with hyperglycemia; F17.200 Nicotine dependence, unspecified, uncomplicated; E66.9 Obesity, unspecified; B00.9 Herpesviral infection, unspecified; E03.9 Hypothyroidism, unspecified; I10 Essential (primary) hypertension; G47.30 Sleep apnea, unspecified; B95.62 Methicillin resistant Staphylococcus aureus infection as the cause of diseases classified elsewhere; Z68.34 Body mass index [BMI] 34.0-34.9, adult; Z89.511 Acquired absence of right leg below knee; Z79.4 Long term (current) use of insulin; Z95.5 Presence of coronary angioplasty implant and graft
CPT/HCPCS: 87529-90; 96365; 97161-GP; 97166-GO; 97530-GO; 97530-GP; 97535-GO; C1751; J0330; J1335; J1650; J1815; J2405; J2543; J2704; J3010; J3370; Q9967

== ENCOUNTER 2017-12-24 16:26 | Emergency (ER) | payer MEDICAID ==
[2017-12-24 16:35] VITALS: TEMP 97.7
--- NOTE | 2017-12-24 18:21 | EDPHY ---
H & P Time Seen by Provider: 12/24/17 18:01 HPI/ROS: CHIEF COMPLAINT: Right arm infection HISTORY OF PRESENT ILLNESS: The patient is a 57-year-old male with a history of right arm infection. He has been treated at [facility] for this section discharge from the hospital. His vancomycin was discontinued on December 01. Patient states he has mild discomfort at the wound site. No extension of the wound. No new redness. No fevers or chills. Patient was recently signed-out from [facility] because he was smoking. REVIEW OF SYSTEMS: My complete review of systems is negative except as mentioned in the HPI. Past Medical/Surgical History: Includes insulin dependent diabetes, coronary artery disease, atrial fibrillation, alcohol abuse, MRSA, necrotizing fasciitis Social History: The patient smokes. He has a history of alcohol abuse Smoking Status: Heavy smoker Physical Exam: 36.5, 110/98, 94, 18, 98% on room air GENERAL: No acute distress, alert. HEENT: Eyes normal to inspection, normal pharynx, no signs of dehydration. NECK: No thyromegaly, no lymphadenopathy, supple. RESPIRATORY: Clear to auscultation bilaterally, no rales, rhonchi or wheezing. CVS: Regular rate and rhythm, no rubs, murmurs, or gallops. ABDOMEN: Soft, nontender, nondistended, no organomegaly. BACK: Normal to inspection, no CVA tenderness. SKIN: Normal color, no rash, warm, dry. No pallor. See extremity exam. EXTREMITIES: Patient's right upper extremity has a large opened wound in his forearm. This appears to be healing well. There is no surrounding erythema or warmth. The wound is dry. There is no discharge. No lymphadenopathy. No pedal edema, no calf tenderness, no Homans sign or cords, no joint swelling. NEURO/PSYCH: Alert and oriented x3, normal mood and affect, normal motor sensory exam. Constitutional: Initial Vital Signs Temperature (C) 36.5 C 12/24/17 16:30 Heart Rate 94 12/24/17 16:30 Respiratory Rate 18 12/24/17 16:30 Blood Pressure 110/98 H 12/24/17 16:30 O2 Sat (%) 98 12/24/17 16:30 O2 Delivery Mode Room Air Allergies/Adverse Reactions: No Known Allergies Allergy (Verified 12/24/17 16:30) Home Medications: Medication Instructions Recorded Polyethylene Glycol 3350 [Miralax 17 gm PO DAILY #0 pkt 07/21/16 17 gm (*)] Thiamine HCl [Vitamin B-1] 100 mg PO DAILY #0 tab 07/21/16 amLODIPine BESYLATE [Norvasc 5 mg 5 mg PO DAILY #0 tab 07/21/16 (*)] Insulin Aspart [Novolog Flexpen] 6 - 14 unit SQ TIDMEAL 08/26/16 Insulin Detemir [Levemir Flextouch] 37 unit SQ BID 08/26/16 Nicotine [Nicoderm Cq 21 mg (*)] 21 mg TD DAILY PRN 08/26/16 Omeprazole 20 mg PO DAILY 08/26/16 Sennosides/Docusate Sodium 1 tab PO BID 08/26/16 [Senokot-S] Gabapentin [Neurontin 300 MG (*)] 600 mg PO TID #0 cap 08/31/16 Acetaminophen [Tylenol ES 500 mg 1,000 mg PO Q8HRS PRN 11/20/16 (*)] morphINE SR [Ms Contin/Oramorph 15 15 mg PO HS 11/20/16 mg (*)] oxyCODONE IR [Oxycodone Ir (*)] 10 - 20 mg PO Q4HRS PRN 11/20/16 Albuterol [Proventil Inhaler HFA 2 puffs IH Q4HRS PRN 11/17/17 (*)] Levothyroxine [Synthroid 150 mcg 150 mcg PO DAILY06 11/17/17 (*)] PARoxetine HCL [Paxil 30mg (*)] 30 mg PO DAILY 11/17/17 tiZANidine HCL [Zanaflex 2MG (*)] 4 mg PO HS 11/17/17 Tamsulosin HCl [Flomax 0.4 MG (*)] 0.4 mg PO DAILY #30 cap 11/25/17 valACYclovir [Valtrex (*)] 1,000 mg PO Q12HRS #10 tab 11/25/17 Medical Decision Making ED Course/Re-evaluation: In the emergency department I discussed possible etiologies with the patient. I informed him that his wound appears to be healing well. He is given follow- up with wound care clinic. I do not feel he needs to start antibiotics at this time. His wound was dressed. He was given warnings prior to leaving. He will return with worsening symptoms. Differential Diagnosis: My differential includes but is not limited to wound infection, MRI say, abscess , bacteremia, sepsis - Data Points Medications Given: Discontinued Medications Ondansetron HCl (Zofran Odt 4 Mg Prepack#2) 1 btl TAKEHOME EDNOW ONE Stop: 12/24/17 18:33 Last Admin: 12/24/17 18:37 Dose: 1 btl Departure - Departure Disposition: Home, Routine, Self-Care Clinical Impression: Open wound of right forearm Qualifiers: Encounter type: initial encounter Qualified Code(s): S51.801A - Unspecified open wound of right forearm, initial encounter Condition: Good Instructions: MRSA (Methicillin-Resistant Staphylococcus Aureus) (ED), Acute Wounds (ED) Additional Instructions: Return with increasing redness, swelling, fever, pain or any other concerns. Referrals: [facility],. [Clinic] - 2-3 days without fail
[2017-12-24] MEDS ORDERED: ONDANSETRON 4MG PREPACK#2 BTL TAKEHOME ONE ×2 (18:31→18:32)
[2017-12-24 18:46] VITALS: BP 112/87; PULSE 96; RESP 16; O2SAT 94
== END 2017-12-24 18:46 | disposition home or self-care (01) ==
DX: S51.801D Unspecified open wound of right forearm, subsequent encounter (principal); F17.200 Nicotine dependence, unspecified, uncomplicated; E11.9 Type 2 diabetes mellitus without complications; I25.10 Atherosclerotic heart disease of native coronary artery without angina pectoris; Z79.4 Long term (current) use of insulin; X58.XXXD Exposure to other specified factors, subsequent encounter

== ENCOUNTER 2017-12-25 14:38 | Emergency (ER) | payer MEDICAID ==
[2017-12-25 14:45] VITALS: RESP 18
--- NOTE | 2017-12-25 15:02 | EDPHY ---
HPI/HX/ROS/PE/MDM Narrative: CHIEF COMPLAINT: Cough HPI: This patient is a 57 year old male well known to this emergency department arriving via EMS complaining of cough. He was [place] an alley [place] a [place] near [facility] shortly prior to arrival. He complains of a cough persisting over two weeks. He states he drank 1 pint of whiskey to try to relieve symptoms. Additionally, he complains of mid chest pain which began about one week ago. He denies fever, shortness of breath, vomiting, diarrhea, or other associated symptoms. REVIEW OF SYSTEMS: Unable to obtain. PMH: Diabetes mellitus. Hypertension. Alcohol abuse. Right BKA. Recent admission for necrotizing fasciitis. SOCIAL HISTORY: Lives at [facility]. Uses tobacco. Heavy alcohol use. PHYSICAL EXAM: General:Patient is alert, appears intoxicated. Appears disinclined to participate in my examination. ENT: Normal inspection. Neck: Normal inspection. Full range of motion. Respiratory:No respiratory distress. Breath sounds normal bilaterally. Cardiovascular: Regular rate and rhythm. Normal cap refill. Abdomen:The abdomen is nontender to palpation. Back: Normal to inspection. No tenderness to palpation. Skin: Normal color. No rash. Warm and dry. Extremities: Dressing in place on right arm. Right below-knee amputation. Neuro: Oriented x3. Normal motor function. Normal sensory function. ED Course: 57 y/o male presents with cough and mid chest pain. Exam is unremarkable, lungs clear to auscultation.The patient has a dressing in place on his right arm, and was evaluated yesterday in this emergency department for a wound check. Medical records from this visit reviewed - the patient's wound appears to be healing well and he continues to be afebrile and non-toxic appearing. Plan for for EKG, chest x-ray. Chest x-ray unremarkable. No evidence of pneumonia. EKG was ordered and interpreted by myself. Please see sezmi system for official reading. EKG unremarkable. Reassessed patient. Discussed results of chest x-ray and EKG. Plan to discharge home in good condition. The patient is intoxicated and not cooperating with exam. He would like to be discharged. - Data Points Imaging Results: Imaging Impressions Chest X-Ray 12/25/17 15:01 Impression: Negative portable chest. Imaging: I viewed and interpreted images myself General Time Seen by Provider: 12/25/17 15:00 Initial Vital Signs: Initial Vital Signs Temperature (C) 36.8 C 12/25/17 14:44 Heart Rate 93 12/25/17 14:44 Respiratory Rate 18 12/25/17 14:44 Blood Pressure 117/81 H 12/25/17 14:44 O2 Sat (%) 100 12/25/17 14:44 O2 Delivery Mode Room Air Allergies/Adverse Reactions: No Known Allergies Allergy (Verified 12/25/17 20:33) Home Medications: Medication Instructions Recorded Polyethylene Glycol 3350 [Miralax 17 gm PO DAILY #0 pkt 07/21/16 17 gm (*)] Thiamine HCl [Vitamin B-1] 100 mg PO DAILY #0 tab 07/21/16 amLODIPine BESYLATE [Norvasc 5 mg 5 mg PO DAILY #0 tab 07/21/16 (*)] Insulin Aspart [Novolog Flexpen] 6 - 14 unit SQ TIDMEAL 08/26/16 Insulin Detemir [Levemir Flextouch] 37 unit SQ BID 08/26/16 Nicotine [Nicoderm Cq 21 mg (*)] 21 mg TD DAILY PRN 08/26/16 Omeprazole 20 mg PO DAILY 08/26/16 Sennosides/Docusate Sodium 1 tab PO BID 08/26/16 [Senokot-S] Gabapentin [Neurontin 300 MG (*)] 600 mg PO TID #0 cap 08/31/16 Acetaminophen [Tylenol ES 500 mg 1,000 mg PO Q8HRS PRN 11/20/16 (*)] morphINE SR [Ms Contin/Oramorph 15 15 mg PO HS 11/20/16 mg (*)] oxyCODONE IR [Oxycodone Ir (*)] 10 - 20 mg PO Q4HRS PRN 11/20/16 Albuterol [Proventil Inhaler HFA 2 puffs IH Q4HRS PRN 11/17/17 (*)] Levothyroxine [Synthroid 150 mcg 150 mcg PO DAILY06 11/17/17 (*)] PARoxetine HCL [Paxil 30mg (*)] 30 mg PO DAILY 11/17/17 tiZANidine HCL [Zanaflex 2MG (*)] 4 mg PO HS 01/10/18 Tamsulosin HCl [Flomax 0.4 MG (*)] 0.4 mg PO DAILY #30 cap 11/25/17 valACYclovir [Valtrex (*)] 1,000 mg PO Q12HRS #10 tab 11/25/17 Departure - Departure Disposition: Home, Routine, Self-Care Clinical Impression: Chest pain Alcohol intoxication Qualifiers: Complication of substance-induced condition: uncomplicated Qualified Code(s): F10.920 - Alcohol use, unspecified with intoxication, uncomplicated Condition: Good Instructions: Chest Pain (ED), Alcohol Intoxication (ED) Additional Instructions: Follow-up with your primary doctor in 2-3 days. Return to the Emergency Department for fever, chest pain, shortness of breath, increasing pain or other worsening of condition. Please refrain from abusing alcohol. Referrals: [facility],. [Clinic] - As per Instructions Report Scribed for: Richard Ryan Report Scribed by: Juani Rolon Date of Report: 12/25/17 Time of Report: 15:02 Physician Review and Approval Statement: Portions of this note were transcribed by an ED scribe. I personally performed the history, physical exam, and medical decision making; and confirm the accuracy of the information in the transcribed note.
--- NOTE | 2017-12-25 15:35 | CPEKG ---
Heart Rate: 96 RR Interval: 625 P-R Interval: 176 QRSD Interval: 78 QT Interval: 404 QTC Interval: 511 P Forbes: 79 QRS Forbes: 5 T Wave Forbes: 81 EKG Severity - ABNORMAL ECG - EKG Impression: SINUS RHYTHM EKG Impression: VENTRICULAR PREMATURE COMPLEX EKG Impression: LOW VOLTAGE THROUGHOUT EKG Impression: PROLONGED QT INTERVAL Electronically Signed By: Richard Ryan 25-Dec-2017 15:38:26
[2017-12-25 16:23] VITALS: BP 122/77; PULSE 74; TEMP 98.1; O2SAT 97
--- NOTE | 2017-12-25 16:29 | ASMTCMCOM ---
CM Note CM Note Notes: Patient was recently "discharged" from [facility] for behavioral issues. Patient brought to ER today via EMS and wheelchair left at as patient was found intoxicated at this location. I have called and spoken with Mary Anne who assures me that wheelchair is sitting outside. CM may call when patient leaves hospital and/or supervisor cabinetmaker to call upon arrival, and staff will come out to assist patient to get into wheelchair. Mary Anne aware of patient's stated plan to then take bus to [facility]. Taxi voucher/transportation provider for patient to return to [facility] to get his wheelchair, and discounted local bus pass provider for patient to return to [facility] this evening. I confirmed with patient the location for the long term this evening-[facility] [address]. Date Signed: 12/25/2017 04:28 PM Electronically Signed By:Sally Barnes RN
== END 2017-12-25 16:23 | disposition home or self-care (01) ==
LOC: EDUNIT#
DX: R07.9 Chest pain, unspecified (principal); F10.920 Alcohol use, unspecified with intoxication, uncomplicated; E11.9 Type 2 diabetes mellitus without complications; I10 Essential (primary) hypertension; Z79.4 Long term (current) use of insulin

== ENCOUNTER 2017-12-25 20:23 | Inpatient (IN) | payer MEDICAID ==
[~2017-12-25 20:23] MED LIST: NS 1,000 ML IV ONE
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
[2017-12-25 20:46] LABS: PLATELET COUNT 257 10^3/uL (150-400)
[2017-12-25] MEDS ORDERED: INSULIN REGULAR HUMAN 100 UNIT, COSIGN. REQUIRED 1 EA in NS 100 ML IV ONE (20:51)
[2017-12-25] MEDS ORDERED: NS 1,000 ML IV ONE (20:51)
[2017-12-25] MEDS ORDERED: INSULIN REGULAR HUMAN 100 UNIT/ML UNIT IVP ONE (20:51)
[2017-12-25] MEDS ORDERED: ONDANSETRON 4 MG/2 ML VIAL IVP ONE (21:27)
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
[2017-12-25] MEDS ORDERED: PROTOCOL POTASSIUM 1 DOSE MISC PRN (22:38)
[2017-12-25] MEDS ORDERED: ACETAMINOPHEN 325 MG TAB PO PRN (22:38)
[2017-12-25] MEDS ORDERED: PROTOCOL CALCIUM 1 DOSE IV PRN (22:38)
[2017-12-25] MEDS ORDERED: PROTOCOL K PHOSPHATE 1 DOSE IV PRN (22:38)
[2017-12-25] MEDS ORDERED: PROTOCOL MAGNESIUM 1 DOSE IV PRN (22:38)
--- NOTE | 2017-12-25 22:45 | CPEKG ---
Heart Rate: 102 RR Interval: 588 P-R Interval: 172 QRSD Interval: 86 QT Interval: 325 QTC Interval: 424 P Hall: 73 QRS Hall: 16 T Wave Hall: 242 EKG Severity - ABNORMAL ECG - EKG Impression: SINUS TACHYCARDIA EKG Impression: NONSPECIFIC T ABNORMALITIES, LATERAL LEADS Electronically Signed By: Trenton Ford 26-Dec-2017 09:52:39
[2017-12-25] MEDS ORDERED: ENALAPRILAT DIHYDRATE 1.25 MG/ML VIAL IVP PRN (23:47)
[2017-12-25] MEDS ORDERED: LORazepam 2 MG/ML INJ IVP PRN ×2 (23:49→23:50)
[2017-12-25] MEDS: VANCOMYCIN 1.25 GM in NS 250 ML IV SCH (23:55)
[2017-12-26 00:09] LABS: INR 1.05 (0.83-1.16); PROTIME(PATIENT) 13.9 SEC (12.0-15.0)
[2017-12-26] MEDS ORDERED: INSULIN REGULAR HUMAN 100 UNIT/ML UNIT SC PRN (00:30)
[2017-12-26] MEDS ORDERED: NS 1,000 ML IV ONE (00:30)
[2017-12-26] MEDS ORDERED: D50W 25 GM/50 ML SYR IVP PRN ×3 (00:30→21:00)
[2017-12-26] MEDS ORDERED: INSULIN REGULAR HUMAN 100 UNIT in NS 100 ML IV SCH (00:30)
[2017-12-26] MEDS: D5W 1/2 NS 1,000 ML IV SCH ×3 (01:05→12:21)
[2017-12-26] MEDS ORDERED: ONDANSETRON 4 MG/2 ML VIAL ONE (01:16)
[2017-12-26] MEDS: NICOTINE 21 MG/24 HR PATCH TD SCH ×2 (01:19→08:01)
[2017-12-26] MEDS: THIAMINE HCL 100 MG in NS 250 ML IV SCH ×2 (01:20→15:55)
[2017-12-26] MEDS ORDERED: ONDANSETRON 4 MG/2 ML VIAL IVP PRN (01:26)
--- NOTE | 2017-12-26 02:26 | PDMN ---
Medical Necessity Medical necessity: C/M review: est. > 2 MN LOS for eval and TX of acute and persistent DKA, sepsis likely due to purulent wound of RUE, chest pain, abdominal pain, diarrhea requiring planned Infectious disease consult, Wound care consult, Dietary consult, ongoing IV Human Regular Insulin infusion, IV Cefepime, ICV Vancomycin, IV fluids, IV Thiamine, frequent blood glucose/ electrolyte monitoring, electrolyte replacement, cardiac monitoring in ICU, comorbid questionable substance, tobacco dependence, hypothyroidism, depression , hypertension, herpes simples labialis, history of diabetes, alcohol abuse, substance abuse, homelessness, right BKA, obesity per H/P.
[2017-12-26] MEDS: NS 1,000 ML IV SCH ×3 (02:32→20:40)
[2017-12-26 05:47] LABS: PLATELET COUNT 197 10^3/uL (150-400)
[2017-12-26] MEDS ORDERED: CEFEPIME HCL 2 GM in STERILE WATER INJ 12.5 ML IV SCH (06:00)
[2017-12-26] MEDS ORDERED: CALCIUM GLUCONATE 50 ML IV ONE (07:58)
[2017-12-26] MEDS ORDERED: POTASSIUM Cl (KCl) 100 ML IV SCH ×2 (07:58→14:45)
[2017-12-26] MEDS ORDERED: MAGNESIUM SULF 2 GM/WATER 50 ML IV ONE (07:58)
[2017-12-26] MEDS: ENOXAPARIN 40 MG/0.4 ML SYR SC SCH (08:00)
[2017-12-26] MEDS: PANTOPRAZOLE SODIUM 40 MG TAB PO SCH (08:00)
[2017-12-26] MEDS: VANCOMYCIN 1.25 GM in NS 250 ML IV SCH ×2 (08:01→20:04)
[2017-12-26] MEDS ORDERED: CALCIUM GLUCONATE 1 GM in NS 100 ML IV ONE (08:30)
--- NOTE | 2017-12-26 09:57 | ASMTCMCOM ---
CM Note CM Note Notes: 57 yr old male admitted for N/V/D, Abd pain, DKA, CP, Sepsis, ETOH abuse. He has a hx of DM, HTN, R UE cellulitis, R BKA, ETOH, Smoker, Chronic pain, Herpes, Depression. CM to follow for discharge needs, Date Signed: 12/26/2017 09:56 AM Electronically Signed By:Eunice Sanches LCSW
[2017-12-26] MEDS: POTASSIUM Cl (KCl) 10 MEQ in NS 100 ML IV SCH ×4 (09:59→18:04)
[2017-12-26] MEDS ORDERED: ALTEPLASE 2 MG VIAL IVP PRN (10:08)
--- NOTE | 2017-12-26 10:23 | CPEKG ---
Heart Rate: 71 RR Interval: 845 P-R Interval: 168 QRSD Interval: 88 QT Interval: 472 QTC Interval: 513 P Epps: 68 QRS Epps: 3 T Wave Epps: 219 EKG Severity - ABNORMAL ECG - EKG Impression: SINUS RHYTHM EKG Impression: NONSPECIFIC T ABNORMALITIES, DIFFUSE LEADS EKG Impression: PROLONGED QT INTERVAL Electronically Signed By: Trenton Ford 27-Dec-2017 06:58:11
[2017-12-26] MEDS ORDERED: 1/2 NS 1,000 ML IV SCH (10:30)
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
[2017-12-26] MEDS ORDERED: K PHOS 10 MMOL in D5W 250 ML IV ONE (12:00)
[2017-12-26] MEDS ORDERED: AMPICILLIN/SULBACTAM 3 GM in STERILE WATER INJ 8 ML IV SCH (12:00)
[2017-12-26] MEDS ORDERED: AMPICILLIN/SULBACTAM 3 GM in NS 100 ML IV SCH (12:00)
[2017-12-26] MEDS: MEROPENEM 1 GM in STERILE WATER INJ 20 ML IV SCH ×3 (12:02→21:07)
--- NOTE | 2017-12-26 12:22 | WOCRNPDOC ---
WOCRN Advanced Assessment Note - Skin Integrity Problem, Advanced Assess Right Lower Arm Dressing Type: Adaptic Touch, Kerlix, Mepilex Transfer Dressing Description: Intact Exudate Amount: Minimal Exudate Color: Yellow Exudate Characteristic(s): Serous Farheen Wound Tissue: Erythema (mild), Intact Farheen Wound Swelling: Mild Wound Bed Constitution: Red/[place] - Non Granular Tissue (90%), Adhered Slough (10 %) Wound Edges: Epibole (from 7-9 o'clock) Site Odor: None Site Measurement - Head-to-Toe Length X Width X Depth (cm): 12cmx4.5cmx0.6cm Skin Integrity Problem Comment: Wound on RFA from s/p necrotizing fasciitis, for which he underwent surgical debridement during a previous admission last month. Per patient, this wound was being treated w/ wound vac until late November. He was recently asked to leave SNF r/t smoking and patient says he has had no wound care since. Wound is predominantly red/pink smooth tissue, w/ two, small discrete areas of adhered slough. No significant periwound erythema and swelling. Epibole from 7-10 o'clock. Unsure if original plan was to graft this site. The deepest aspect is along the inferior margin of the wound bed, 0.6cm, however most of the wound bed is relatively shallow, no significant benefit would be derived from vac at this time. Will have nursing apply Hydrofera Blue ready foam to wound bed today, followed by secondary dressing. Wound care will re-assess tomorrow 12/27. Left Knee Abrasion Dressing Type: Open to Air Exudate Characteristic(s): Dried Farheen Wound Swelling: None Wound Bed Color: Brown Wound Bed Constitution: Scab Wound Edges: Epithelizing Site Odor: None Site Measurement - Head-to-Toe Length X Width X Depth (cm): [id number] scab Skin Integrity Problem Comment: Intact scab over left knee w/ no periwound erythema or swelling. Wound care does not need to follow ongoing. Will have nursing apply wound gel and Allevyn. Left Lower Leg Dressing Type: Open to Air Exudate Amount: None Exudate Characteristic(s): None Farheen Wound Tissue: Intact Farheen Wound Swelling: None Wound Bed Color: Black, Brown Wound Bed Constitution: Scab, Stable Eschar Wound Edges: Punched Out Skin Integrity Problem Comment: Multiple circular wounds, punctate in appearance , in various stages of healing noted througout patient's left leg, uncertain of etiology. No exudate evident, all wounds dry, dessicated. No erythema or swelling periwound. Largest of these wounds is on his left lower lateral leg, which is 100% dry, stable eschar. Will have nursing initiate topical wound tx w / wound gel and Allevyns. Wound care will continue to follow.
--- NOTE | 2017-12-26 13:10 | GCON ---
[f rep st] CONSULTATION PULMONARY/CRITICAL CARE CONSULTATION DATE OF CONSULTATION: 12/26/2017 REFERRING PHYSICIAN: Henri Chester MD REASON FOR REFERRAL: Evaluation and management of DKA and alcohol withdrawal. HISTORY: The patient is a 57-year-old gentleman who presented to the emergency department yesterday because he had felt sick for 2 days, with nausea, vomiting, abdominal pain, and leg pain. He has a h istory of alcohol abuse, and continues to drink. He had been hospitalized last month with an upper e xtremity wound infection that grew MRSA and Clostridium. He was debrided and discharged with vancomy rossi monotherapy to [facility]. He completed therapy, but was discharged from [facility] due to behavioral issues. He is apparently now homeless. Yesterday he was complaining of some pain in the area of his wound. He has diabetes, and has not been reliably taking his insulin for that. In the emergency department, he was found to have a markedly elevated blood sugar and beta hydroxybutyrate, with a severe metabolic acidosis. He has been treated with insulin and fluids, and this has improved . He has had some cough. PAST MEDICAL HISTORY: 1. Diabetes. 2. Hypertension. 3. History of alcoholism. 4. Homeless. MEDICATIONS: Amlodipine, Proventil, gabapentin, insulin, oxycodone, Paxil, Flomax, and omeprazole. ALLERGIES: None. SOCIAL HISTORY: The patient smokes 3/4 of a pack of cigarettes daily. He has a history of alcohol a buse and continues to drink. He is homeless. FAMILY HISTORY: Noncontributory. REVIEW OF SYSTEMS: A 10-point review of systems adds nothing to the history of present illness. PHYSICAL EXAMINATION: GENERAL: The patient is awake, alert, and a bit disheveled. He is not orient ed to date or place. VITAL SIGNS: His blood pressure is 92/57 with a heart rate of 80. He is afebr ile. Oxygen saturations are 99% on 2 L. HEENT: Normocephalic and atraumatic. No icterus. NECK: No adenopathy. Trachea is midline. CHEST: Clear to auscultation. CARDIAC: Regular rate and rhyth m without murmur. ABDOMEN: Soft, nontender. Bowel sounds are present. EXTREMITIES: No clubbing o r cyanosis. He has a right BKA and amputation of his left great toe. There are numerous excoriation s/eschars on his skin. NEURO: The patient is oriented x1. He is able to move all extremities. SKI N: The patient has a dressed wound in his right upper extremity. On his upper arm he has a 4 cm fir m nodule just above the antecubital fossa that is nonfluctuant, with no overlying cellulitis. LABORATORY: Hemoglobin is 12.2, down from 17.7. Chemistry group is remarkable for an anion gap that has fallen to 13, down from 33. Carbon dioxide level is 12, up from 6. A venous blood gas this [facility] shows a pH of 7.25 with a pO2 of 37, a CO2 of 31, a bicarbonate of 13. A lactate is 2.2. An IN R is 1.1. Urinalysis is unremarkable. Influenza swab is negative. Tox screen is negative. Ethyl a lcohol level is less than 10. CT scan of the chest shows no confluent infiltrates. Images reviewed by me. ASSESSMENT: 1. Diabetic ketoacidosis: The patient presented with an anion gap metabolic acidosis, elevated beta hydroxybutyrate, and elevated blood sugar. These have all improved, although the patient's CO2 leve l is still a bit low. The anion gap is closed. He still has a slightly elevated lactate level. 2. Possible sepsis. The patient has an elevated lactate. Possible sources could be his upper extre mity wound or possibly his other small eschars. 3. Delirium. This is likely a component of alcohol withdrawal. This is improved with p.rjúnior norton. 4. Right upper extremity arm lesion. There is a subcutaneous nodule/abscess in addition to the prev iously debrided wound infection. RECOMMENDATIONS: 1. Continue empiric antibiotics of vancomycin and meropenem as per ID. 2. Continue IV fluids and insulin to help treat the patient's resolving DKA. Once he starts eating, we should be able to continue at a moderate dose of insulin to help ensure that he does not develop ketoacidosis again. 3. Continue IV fluids and supportive care for probable sepsis, which is improving. Blood cultures a re pending. 4. CT scan of the right arm to look at this apparently new area of swelling above his prior infectio us site. /[id number]
--- NOTE | 2017-12-26 13:43 | HOSPPROG ---
Hospitalist Progress Note Assessment/Plan: 57 yo M w dm 2 admitted w AGMA< hyperglycemia, sepsis, skin lesions and RUE mass RUE mass: suspected to be hematoma by surgery. they will follow not warm or tender DKA: continue insulin gtt today this may not be true dka given type 2 physiology CP: ekg non ischemic and trop neg being treated for pneumonia not seen on CT (images reviewed/interp by me) follow AGMA: as above repeat lactate to ensure it trends to normal skin lesions: uncertain cause blood cx drawn sepsis: vanc meropenem no clear source dispo: ICU 25 min crit care Subjective: case discussed w fredrick rollins, yesenia Objective: Vital Signs Temp Pulse Resp BP Pulse Ox 36.6 C 88 14 128/62 H 100 12/26/17 12:00 12/26/17 12:00 12/26/17 12:00 12/26/17 12:00 12/26/17 12:00 Microbiology 12/26/17 02:00 Gram Stain - Final Arm - Swab Laboratory Results 12/26/17 05:40 12/26/17 10:50 12/25/17 12/26/17 12/27/17 05:59 05:59 05:59 Intake Total 4438.6 Output Total 1250 400 Balance 3188.6 -400 PT 13.9 SEC (12.0-15.0) 12/25/17 23:30 INR 1.05 (0.83-1.16) 12/25/17 23:30 - Physical Exam Constitutional: no apparent distress, appears nourished Eyes: PERRL, anicteric sclera Ears, Nose, Mouth, Throat: moist mucous membranes, hearing normal Cardiovascular: regular rate and rhythym, no murmur, rub, or gallop Respiratory: no respiratory distress, no rales or rhonchi Gastrointestinal: normoactive bowel sounds, soft, non-tender abdomen Genitourinary: garcia in urethra Skin: warm, other (multiple 1 cm eschars. R medial forearm w 8x6cm ulcer w good granulation tissueand exposed tendon. golfball sized ballotable mass on R bicep) Musculoskeletal: full muscle strength Neurologic: No AAOx3 ICD10 Worksheet Patient Problems: Problems Problem Status Onset DKA (diabetic ketoacidoses) Acute Alcohol abuse Acute Alcohol dependence Acute Alcohol intoxication Acute Altered mental status Acute Atelectasis Acute Bronchitis Acute Diabetic foot ulcer Acute Hyperglycemia Acute Hyperglycemia due to type 2 diabetes mellitus Acute Leukocytosis Acute Osteomyelitis Acute Pneumonia Acute Right arm cellulitis Acute
[2017-12-26] MEDS: INSULIN GLARGINE 100 UNITS/ML UNIT SC SCH (15:53)
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
[2017-12-26] MEDS: INSULIN LISPRO 100 UNIT/ML SC SCH (18:02)
[2017-12-26] MEDS: MELATONIN 3 MG TAB PO SCH (20:04)
[2017-12-26] MEDS: INSULIN REGULAR, HUMAN 100 UNIT/1 ML VIAL STANDARD SC SCH (21:07)
[2017-12-27] MEDS: MEROPENEM 1 GM in STERILE WATER INJ 20 ML IV SCH ×2 (05:30→14:13)
[2017-12-27] MEDS ORDERED: CALCIUM GLUCONATE 50 ML IV ONE (05:52)
[2017-12-27] MEDS ORDERED: CALCIUM GLUCONATE 1 GM in NS 100 ML IV ONE (06:30)
[2017-12-27] MEDS ORDERED: POTASSIUM Cl (KCl) 50 ML IV ONE (07:23)
[2017-12-27] MEDS ORDERED: MAGNESIUM SULF 1 GM/DEXTROSE 100 ML IV ONE (07:23)
[2017-12-27] MEDS: INSULIN REGULAR, HUMAN 100 UNIT/1 ML VIAL STANDARD SC SCH ×2 (07:33→11:27)
[2017-12-27] MEDS: INSULIN LISPRO 100 UNIT/ML SC SCH ×3 (07:40→17:05)
[2017-12-27] MEDS: INSULIN GLARGINE 100 UNITS/ML UNIT SC SCH (07:41)
[2017-12-27] MEDS: ENOXAPARIN 40 MG/0.4 ML SYR SC SCH (07:42)
[2017-12-27] MEDS: PANTOPRAZOLE SODIUM 40 MG TAB PO SCH (07:42)
[2017-12-27] MEDS: NICOTINE 21 MG/24 HR PATCH TD SCH (07:42)
[2017-12-27] MEDS: VANCOMYCIN 1.25 GM in NS 250 ML IV SCH (07:47)
[2017-12-27] MEDS: THIAMINE HCL 100 MG in NS 250 ML IV SCH (09:32)
[2017-12-27] MEDS ORDERED: K PHOS 10 MMOL in NS 250 ML IV ONE (12:00)
--- NOTE | 2017-12-27 12:00 | ASMTCAGE ---
CAGE Do you drink or use drugs Answers: No first thing in the morning ([employer] [facility])? Additional Comments Patient reports that he no longer drinks. Has been sober for 1 year. Date Signed: 12/27/2017 11:59 AM Electronically Signed By:Eunice Sanches LCSW
[2017-12-27] MEDS ORDERED: ALBUTEROL 60 PUFFS/8 GM MDI IH PRN (12:05)
[2017-12-27] MEDS ORDERED: NICOTINE 21 MG/24 HR PATCH TD PRN (12:05)
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
--- NOTE | 2017-12-27 12:24 | HOSPPROG ---
Hospitalist Progress Note Assessment/Plan: 57 yo M w dm 2 admitted w AGMA< hyperglycemia, sepsis, skin lesions and RUE mass RUE mass: suspected to be hematoma by surgery. they will follow not warm or tender suspect hematoma DKA: gap remain sclosed increase lantus CP: ekg non ischemic and trop neg being treated for pneumonia not seen on CT (images reviewed/interp by me) follow trial of sucralfate and GI cocktail ID; suspect can trim abx will d/w ID AGMA: as above repeat lactate to ensure it trends to normal skin lesions: uncertain cause blood cx drawn sepsis: vanc meropenem no clear source dispo: ICU Subjective: case d/w dr ramirez. more alert. c/o chest pain Objective: Vital Signs Temp Pulse Resp BP Pulse Ox 37 C 75 13 141/83 H 99 12/27/17 11:53 12/27/17 11:53 12/27/17 11:53 12/27/17 11:53 12/27/17 11:53 Microbiology 12/26/17 02:00 Gram Stain - Final Arm - Swab 12/25/17 23:45 Blood Panel (PCR) - Final Blood Staph Coagulase Negative Laboratory Results 12/27/17 05:30 12/27/17 05:30 12/26/17 12/27/17 12/28/17 05:59 05:59 05:59 Intake Total 4438.6 7059 490 Output Total 1250 2800 2000 Balance 3188.6 4259 -1510 PT 13.9 SEC (12.0-15.0) 12/25/17 23:30 INR 1.05 (0.83-1.16) 12/25/17 23:30 - Physical Exam Constitutional: no apparent distress, appears nourished Eyes: PERRL, anicteric sclera Ears, Nose, Mouth, Throat: moist mucous membranes, hearing normal Cardiovascular: regular rate and rhythym, no murmur, rub, or gallop Respiratory: no respiratory distress, no rales or rhonchi Gastrointestinal: normoactive bowel sounds, soft, non-tender abdomen Genitourinary: garcia in urethra Skin: warm Musculoskeletal: full muscle strength Neurologic: AAOx3 ICD10 Worksheet Patient Problems: Problems Problem Status Onset DKA (diabetic ketoacidoses) Acute Alcohol abuse Acute Alcohol dependence Acute Alcohol intoxication Acute Altered mental status Acute Atelectasis Acute Bronchitis Acute Diabetic foot ulcer Acute Hyperglycemia Acute Hyperglycemia due to type 2 diabetes mellitus Acute Leukocytosis Acute Osteomyelitis Acute Pneumonia Acute Right arm cellulitis Acute
[2017-12-27] MEDS: TAMSULOSIN HCL 0.4 MG CAP PO SCH (12:33)
--- NOTE | 2017-12-27 14:28 | PCMIDPN ---
Assessment/Plan: Assessment: Diabetic ketoacidosis- unclear trigger. The right arm which was the site of his necrotizing fasciitis 1 month ago does not appear to be significantly involved in acute infection. The nodule that is new just proximal to the area on his right upper arm does not seem to be inflamed. Plan to continue his vancomycin and meropenem empirically while cultures are maturing. Plan: 1. Continue empiric vancomycin and meropenem. 2. follow laboratory data and temp curve. 3. follow appearance of right upper extremity. Subjective: Patient is somnolent in his room. No new complaints. Objective: Vancomycin # 1 meropenem # 1 Vital Signs Temp Pulse Resp BP Pulse Ox 37 C 92 13 141/83 H 95 12/27/17 11:53 12/27/17 12:10 12/27/17 11:53 12/27/17 11:53 12/27/17 12:10 Microbiology 12/26/17 02:00 Gram Stain - Final Arm - Swab 12/25/17 23:45 Blood Panel (PCR) - Final Blood Staph Coagulase Negative Laboratory Results 12/27/17 05:30 12/27/17 05:30 12/26/17 12/27/17 12/28/17 05:59 05:59 05:59 Intake Total 4438.6 7059 490 Output Total 1250 2800 2000 Balance 3188.6 2981 -5230 - Physical Exam General Appearance: WD/WN, alert, no apparent distress, non-toxic Respiratory: lungs clear, normal breath sounds, No respiratory distress Cardiac/Chest: regular rate, rhythm, No tachycardia Extremities: non-tender, normal inspection Skin: normal color, warm/dry, No rash ICD10 Worksheet Patient Problems: Problems Problem Status Onset DKA (diabetic ketoacidoses) Acute Alcohol abuse Acute Alcohol dependence Acute Alcohol intoxication Acute Altered mental status Acute Atelectasis Acute Bronchitis Acute Diabetic foot ulcer Acute Hyperglycemia Acute Hyperglycemia due to type 2 diabetes mellitus Acute Leukocytosis Acute Osteomyelitis Acute Pneumonia Acute Right arm cellulitis Acute
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
[2017-12-27] MEDS ORDERED: PROTOCOL POTASSIUM 1 DOSE MISC PRN (15:40)
--- NOTE | 2017-12-27 16:02 | SOAPPROG ---
SOAP Progress Note Assessment/Plan: Assessment/Plan: 57yo M well-known to our service for recent RUE necrotizing fasciitis, s/p excisional debridement and wound vac therapy. Now admitted with DKA RUE wound healthy, dressed c hydrofera blue ready (can be changed every 3 days or PRN Will ultimately require STSG- possibly during this hospital stay if improves/ stable New nodule proximal to wound, thought to be hematoma - will continue to monitor IV antibiotics per ID Appreciate hospitalists. intensivists S: complains of uncomfortable burping. no pain in RUE. does not inject at site of RUE nodule, denies any recent trauma to the area O: Lying in bed, comfortable, no acute distress No increased work of breathing Right or upper extremity wound clean, dry without to surrounding erythema or induration. 100% healthy granulation tissue in the base the wound. Hydrofera Blue dressing reapplied. Proximal right upper extremity nodule without overlying erythema, nontender to palpation. No open wound. Objective: Vital Signs Temp Pulse Resp BP Pulse Ox 37 C 92 13 141/83 H 95 12/27/17 11:53 12/27/17 12:10 12/27/17 11:53 12/27/17 11:53 12/27/17 12:10 Microbiology 12/26/17 02:00 Gram Stain - Final Arm - Swab 12/25/17 23:45 Blood Panel (PCR) - Final Blood Staph Coagulase Negative Laboratory Results 12/27/17 05:30 12/27/17 05:30 12/26/17 12/27/17 12/28/17 05:59 05:59 05:59 Intake Total 4438.6 7059 490 Output Total 1250 2800 2000 Balance 3188.6 4259 -1510 PT 13.9 SEC (12.0-15.0) 12/25/17 23:30 INR 1.05 (0.83-1.16) 12/25/17 23:30 ICD10 Worksheet Patient Problems: Problems Problem Status Onset DKA (diabetic ketoacidoses) Acute Alcohol abuse Acute Alcohol dependence Acute Alcohol intoxication Acute Altered mental status Acute Atelectasis Acute Bronchitis Acute Diabetic foot ulcer Acute Hyperglycemia Acute Hyperglycemia due to type 2 diabetes mellitus Acute Leukocytosis Acute Osteomyelitis Acute Pneumonia Acute Right arm cellulitis Acute
[2017-12-27] MEDS: MBX SOLN 30 ML BOTTLE PO PRN (16:44)
[2017-12-27] MEDS: GABAPENTIN 300 MG CAP PO SCH ×2 (16:44→20:36)
[2017-12-27] MEDS: SUCRALFATE 1 GM/10 ML UDCUP PO SCH ×2 (17:19→19:59)
[2017-12-27] MEDS ORDERED: POTASSIUM CL 10 MEQ TAB PO ONE (19:38)
[2017-12-27] MEDS: MELATONIN 3 MG TAB PO SCH (19:59)
[2017-12-27] MEDS: SENNOSIDES/DOCUSATE SODIUM TAB PO SCH (20:02)
[2017-12-27] MEDS: morphINE SR 15 MG TAB PO SCH (20:02)
[2017-12-27] MEDS ORDERED: tiZANidine HCL 2 MG TAB PO SCH (21:00)
[2017-12-28] MEDS: MBX SOLN 30 ML BOTTLE PO PRN ×2 (01:04→13:23)
[2017-12-28] MEDS: oxyCODONE IR 5 MG TAB PO PRN ×4 (01:08→17:54)
[2017-12-28] MEDS: LEVOTHYROXINE 150 MCG TAB PO SCH (04:56)
[2017-12-28] MEDS ORDERED: MAGNESIUM SULF 1 GM/DEXTROSE 100 ML IV ONE (07:46)
[2017-12-28] MEDS: SUCRALFATE 1 GM/10 ML UDCUP PO SCH ×4 (07:58→21:36)
[2017-12-28] MEDS: NICOTINE 21 MG/24 HR PATCH TD SCH (08:01)
[2017-12-28] MEDS: amLODIPine BESYLATE 5 MG TAB PO SCH (08:01)
[2017-12-28] MEDS: INSULIN GLARGINE 100 UNITS/ML UNIT SC SCH (08:01)
[2017-12-28] MEDS: GABAPENTIN 300 MG CAP PO SCH ×3 (08:01→21:36)
[2017-12-28] MEDS: THIAMINE HCL 100 MG TAB PO SCH (08:01)
[2017-12-28] MEDS: PANTOPRAZOLE SODIUM 40 MG TAB PO SCH (08:02)
[2017-12-28] MEDS: POLYETHYLENE GLYCOL 3350 17 GM PKT PO SCH (08:02)
[2017-12-28] MEDS: SENNOSIDES/DOCUSATE SODIUM TAB PO SCH ×2 (08:02→21:36)
[2017-12-28] MEDS: ENOXAPARIN 40 MG/0.4 ML SYR SC SCH (08:02)
[2017-12-28] MEDS: TAMSULOSIN HCL 0.4 MG CAP PO SCH (08:02)
[2017-12-28] MEDS ORDERED: LIDO/EPI 1% **Not for Epidural 20 ML MDV NB ONE (08:44)
[2017-12-28] MEDS: INSULIN LISPRO 100 UNIT/ML SC SCH ×3 (08:52→17:51)
[2017-12-28] MEDS ORDERED: D50W 25 GM/50 ML SYR IVP PRN (13:31)
[2017-12-28] MEDS ORDERED: IOPAMIDOL (ISOVUE 370) 100 ML BTL IV ONE (13:36)
--- NOTE | 2017-12-28 13:42 | HOSPPROG ---
Hospitalist Progress Note Assessment/Plan: # neurologic changes - resolved (speech problems, LUE weakness) - seems to coordinate with relative hypoglycemia as symptoms improved dramatically post-D50 - risk factors for CVA/TIA, but not clinically c/w CVA - check stat CTH - check CTA H&N - Q2 neuro checks overnight # DM - will decrease lispro with neuro sx and relatively low gluc - cont glargine 28 - decrease to low dose sliding scale lispro # CP - very related to PO intake - retry GI cocktail (unclear if had response) - incr to protonix 40 iv BID # RUE necrotizing infection - was on vanc - cont vanc/merrem (added this admit) per ID # RUE mass - likely hematoma # DKA with severe AGMA - resolved, gap closed # skin lesions - unclear cause # sepsis, ruled out - I currently do not think he had sepsis as no clear source , tachycardia better explained by dehydration/DKA Subjective: called emergently to patient's room with slurred speech Objective: Vital Signs Temp Pulse Resp BP Pulse Ox 36.3 C 81 12 130/94 H 100 12/28/17 08:00 12/28/17 08:00 12/28/17 08:00 12/28/17 08:00 12/28/17 08:00 Microbiology 12/26/17 02:00 Gram Stain - Final Arm - Swab Wound Culture - Final MRSA 12/25/17 23:45 Blood Panel (PCR) - Final Blood Staph Coagulase Negative Laboratory Results 12/27/17 05:30 12/28/17 05:00 12/27/17 12/28/17 12/29/17 05:59 05:59 05:59 Intake Total 7059 3151 500 Output Total 2800 3850 250 Balance 4259 -699 250 PT 13.9 SEC (12.0-15.0) 12/25/17 23:30 INR 1.05 (0.83-1.16) 12/25/17 23:30 40 mins floor CC time spent with acute neurological changes - Physical Exam Constitutional: chronically ill appearing, unkempt Cardiovascular: regular rate and rhythym, no murmur, rub, or gallop Respiratory: no respiratory distress, no rales or rhonchi Gastrointestinal: normoactive bowel sounds, soft, non-tender abdomen Neurologic: other (CN 2-12 intact; L arm motor 2/5 -> improved to 5/5 after D50 ; sensation to light touch intact) ICD10 Worksheet Patient Problems: Problems Problem Status Onset Alcohol intoxication Acute Hyperglycemia Acute Pneumonia Acute Bronchitis Acute Atelectasis Acute Alcohol dependence Acute Alcohol abuse Acute Diabetic foot ulcer Acute Osteomyelitis Acute Altered mental status Acute Right arm cellulitis Acute Leukocytosis Acute Hyperglycemia due to type 2 diabetes mellitus Acute DKA (diabetic ketoacidoses) Acute
[2017-12-28] MEDS: NS 1,000 ML IV SCH (13:56)
--- NOTE | 2017-12-28 13:56 | SOAPPROG ---
SOAP Progress Note Assessment/Plan: Assessment/Plan: 57yo M well-known to our service for recent RUE necrotizing fasciitis, s/p excisional debridement and wound vac therapy. Now admitted with DKA RUE wound healthy. Will ultimately require STSG- possibly during this hospital stay if medically improves/stable New nodule proximal to wound, likely abscess. will perform bedside I&D this afternoon IV antibiotics per ID Appreciate hospitalists. intensivists. Seen with Dr. Foster. S: complains of uncomfortable burping. no pain in RUE. does not inject at site of RUE nodule, denies any recent trauma to the area O: Lying in bed, comfortable, no acute distress facial/periorbital edema noted since last hospitalization No increased work of breathing RUE dressing intact. R biceps nodule with central pustule, increased overlying erythema compared to yesterday. No open wound. Objective: Vital Signs Temp Pulse Resp BP Pulse Ox 36.3 C 81 12 130/94 H 100 12/28/17 08:00 12/28/17 08:00 12/28/17 08:00 12/28/17 08:00 12/28/17 08:00 Microbiology 12/26/17 02:00 Gram Stain - Final Arm - Swab Wound Culture - Final MRSA 12/25/17 23:45 Blood Panel (PCR) - Final Blood Staph Coagulase Negative Laboratory Results 12/27/17 05:30 12/28/17 05:00 12/27/17 12/28/17 12/29/17 05:59 05:59 05:59 Intake Total 7002 3151 500 Output Total 2800 3850 250 Balance 4259 -699 250 PT 13.9 SEC (12.0-15.0) 12/25/17 23:30 INR 1.05 (0.83-1.16) 12/25/17 23:30 ICD10 Worksheet Patient Problems: Problems Problem Status Onset DKA (diabetic ketoacidoses) Acute Alcohol abuse Acute Alcohol dependence Acute Alcohol intoxication Acute Altered mental status Acute Atelectasis Acute Bronchitis Acute Diabetic foot ulcer Acute Hyperglycemia Acute Hyperglycemia due to type 2 diabetes mellitus Acute Leukocytosis Acute Osteomyelitis Acute Pneumonia Acute Right arm cellulitis Acute
--- NOTE | 2017-12-28 14:46 | ASMTCMCOM ---
CM Note CM Note Notes: LENA Nails [phone], here to eval for LTC Medicaid. Contacted [facility] re: admission. They will be meeting about patient this afternoon. [place] [phone] has called patient to keep in touch. Date Signed: 12/28/2017 02:45 PM Electronically Signed By:Eunice Sanches LCSW
--- NOTE | 2017-12-28 16:25 | ASMTCMCOM ---
CM Note CM Note Notes: Waiting for infection to subside before patient gets a skin graft on his arm and a wound vac will be placed. Patient will then be ready to go to SNF. [facility] working on admission, they could hold a bed for 7 days. Gave MV above info. Stay in touch with MV. Date Signed: 12/28/2017 04:24 PM Electronically Signed By:Eunice Sanches LCSW
[2017-12-28] MEDS: VANCOMYCIN 1.25 GM in NS 250 ML IV SCH (16:27)
--- NOTE | 2017-12-28 16:49 | PCMIDPN ---
Assessment/Plan: Assessment/Plan: * Right upper extremity abscess: Patient with evolution of nodule to fluctuant collection consistent with abscess. Plans for surgical incision and drainage this p.m.. Likely due to MRSA. This is discretely separate from prior area of necrotizing fasciitis. Will continue vancomycin. Follow up cultures as available. * Recent necrotizing fasciitis of right upper extremity: Wound healing well without signs of infection. * Positive blood cultures: 1/2 sets with growth of Staph coagulase negative Staphylococcus consistent with skin contamination. No targeted therapy necessary. 12/28/17 16:46 12/28/17 16:47 Subjective: Patient notes persistent lump over right upper extremity which is mildly painful. Objective: Vital Signs Temp Pulse Resp BP Pulse Ox 36.6 C 74 18 135/92 H 100 12/28/17 16:00 12/28/17 16:00 12/28/17 16:00 12/28/17 16:00 12/28/17 16:00 Microbiology 12/25/17 23:45 Blood Panel (PCR) - Final Blood Staph Coagulase Negative 12/26/17 02:00 Gram Stain - Final Arm - Swab Wound Culture - Final MRSA Laboratory Results 12/27/17 05:30 12/28/17 05:00 12/27/17 12/28/17 12/29/17 05:59 05:59 05:59 Intake Total 7059 3151 500 Output Total 2800 3850 250 Balance 4259 -699 250 - Physical Exam General Appearance: alert, no apparent distress EENT: No scleral icterus, No thrush, No conjunctival petechiae Extremities: inflammation (Right upper extremity with fluctuant erythematous, warm and mildly tender lesion measuring approximately 3 x 3 cm superior to antecubital fossa; wound over right forearm healing well without purulence or surrounding erythema-this is entirely discontinuous with fluctuant region) Abdomen: non-tender, No distended ICD10 Worksheet Patient Problems: Problems Problem Status Onset DKA (diabetic ketoacidoses) Acute Alcohol abuse Acute Alcohol dependence Acute Alcohol intoxication Acute Altered mental status Acute Atelectasis Acute Bronchitis Acute Diabetic foot ulcer Acute Hyperglycemia Acute Hyperglycemia due to type 2 diabetes mellitus Acute Leukocytosis Acute Osteomyelitis Acute Pneumonia Acute Right arm cellulitis Acute
--- NOTE | 2017-12-28 17:56 | GPN ---
[f rep st] PROCEDURE NOTE PREOPERATIVE DIAGNOSIS: Right upper arm nodule. POSTOPERATIVE DIAGNOSIS: Abscess. PROCEDURE: Incision and drainage of abscess. PERFORMING PROVIDER: Karis Mckeon PA-C. SUPERVISING PHYSICIAN: Tabitha Foster MD. DESCRIPTION OF PROCEDURE: Time-out protocol was performed prior to initiating the procedure. The area was prepped with ChloraPrep. The site was anesthetized with 6 cc of 1% lidocaine with epinephrine. A cruciate incision was made over the induration, and purulent material was expressed. The abscess was explored and any loculations broken up. Wound culture was obtained. The abscess was flushed with NS until clear return of fluid, then packed with quarter inch sterile plain packing. Hemostasis was achieved with direct pressure. The patient tolerated the procedure well without complications. /[id number]/MODL MTDD
[2017-12-28] MEDS: morphINE SR 15 MG TAB PO SCH (21:36)
[2017-12-28] MEDS: MELATONIN 3 MG TAB PO SCH (21:37)
[2017-12-28] MEDS: PANTOPRAZOLE SODIUM 40 MG VIAL IVP SCH (21:37)
[2017-12-29] MEDS: oxyCODONE IR 5 MG TAB PO PRN ×4 (02:26→20:15)
[2017-12-29] MEDS: VANCOMYCIN 1.25 GM in NS 250 ML IV SCH ×3 (04:00→15:34)
[2017-12-29 05:57] LABS: PLATELET COUNT 165 10^3/uL (150-400)
[2017-12-29] MEDS: LEVOTHYROXINE 150 MCG TAB PO SCH (06:30)
[2017-12-29] MEDS: SUCRALFATE 1 GM/10 ML UDCUP PO SCH ×4 (08:05→20:14)
[2017-12-29] MEDS: NICOTINE 21 MG/24 HR PATCH TD SCH (08:05)
[2017-12-29] MEDS: INSULIN LISPRO 100 UNIT/ML SC SCH ×3 (08:06→18:30)
[2017-12-29] MEDS: ENOXAPARIN 40 MG/0.4 ML SYR SC SCH (08:06)
[2017-12-29] MEDS: GABAPENTIN 300 MG CAP PO SCH ×3 (08:07→21:47)
[2017-12-29] MEDS: THIAMINE HCL 100 MG TAB PO SCH (08:07)
[2017-12-29] MEDS: SENNOSIDES/DOCUSATE SODIUM TAB PO SCH ×2 (08:07→20:16)
[2017-12-29] MEDS: TAMSULOSIN HCL 0.4 MG CAP PO SCH (08:07)
[2017-12-29] MEDS: INSULIN GLARGINE 100 UNITS/ML UNIT SC SCH (08:07)
[2017-12-29] MEDS: PANTOPRAZOLE SODIUM 40 MG VIAL IVP SCH ×2 (08:08→20:16)
[2017-12-29] MEDS: amLODIPine BESYLATE 5 MG TAB PO SCH (08:08)
[2017-12-29] MEDS: POLYETHYLENE GLYCOL 3350 17 GM PKT PO SCH (08:11)
[2017-12-29] MEDS ORDERED: POTASSIUM CL 10 MEQ TAB PO ONE ×2 (08:20→22:45)
[2017-12-29] MEDS ORDERED: MAGNESIUM SULF 1 GM/DEXTROSE 100 ML IV ONE (08:29)
[2017-12-29] MEDS ORDERED: THIAMINE HCL 100 MG TAB PO SCH (09:00)
--- NOTE | 2017-12-29 09:30 | HOSPPROG ---
Hospitalist Progress Note Assessment/Plan: # hx CVA - neurologic changes yesterday possibly recrudescence - not on appropriate therapy - will start asa/statin before discharge (hold on asa given GERD and need for skin graft) - check lipids - ICA stenosis 65-75% - neuro consult for assistance # DM - will decrease lispro with neuro sx and relatively low gluc - slight decr in glargine 28->25 - cont low dose sliding scale lispro # RUE necrotizing infection s/p debridement last month d/t clostridium perfringes and MRSA - abscess I&D'd yesterday - follow cultures - cont vanc - needs skin graft # staph epi in BCx - suspect contaminant # CP - very related to PO intake - GI cocktail prn - incr to protonix 40 iv BID # DKA with severe AGMA - resolved, gap closed # skin lesions - unclear cause # sepsis, ruled out - I currently do not think he had sepsis as no clear source , tachycardia better explained by dehydration/DKA Subjective: s/p I&D of R arm abscess; feels much better today Objective: Vital Signs Temp Pulse Resp BP Pulse Ox 36.4 C 67 18 107/63 94 12/29/17 07:45 12/29/17 07:45 12/29/17 07:45 12/29/17 07:45 12/29/17 07:45 Microbiology 12/28/17 16:00 Gram Stain - Final Arm - Swab 12/25/17 23:45 Blood Panel (PCR) - Final Blood Staph Coagulase Negative 12/26/17 02:00 Gram Stain - Final Arm - Swab Wound Culture - Final MRSA Laboratory Results 12/29/17 05:25 12/29/17 05:25 12/28/17 12/29/17 12/30/17 05:59 05:59 05:59 Intake Total 3151 3693 Output Total 3850 1050 Balance -699 2643 PT 13.9 SEC (12.0-15.0) 12/25/17 23:30 INR 1.05 (0.83-1.16) 12/25/17 23:30 - Physical Exam Constitutional: chronically ill appearing, unkempt Cardiovascular: regular rate and rhythym, no murmur, rub, or gallop Respiratory: no respiratory distress, no rales or rhonchi, clear to auscultation Gastrointestinal: soft, non-tender abdomen, no palpable masses Musculoskeletal: other ICD10 Worksheet Patient Problems: Problems Problem Status Onset Alcohol intoxication Acute Hyperglycemia Acute Pneumonia Acute Bronchitis Acute Atelectasis Acute Alcohol dependence Acute Alcohol abuse Acute Diabetic foot ulcer Acute Osteomyelitis Acute Altered mental status Acute Right arm cellulitis Acute Leukocytosis Acute Hyperglycemia due to type 2 diabetes mellitus Acute DKA (diabetic ketoacidoses) Acute
--- NOTE | 2017-12-29 12:57 | PCMIDPN ---
Assessment/Plan: # Right upper extremity abscess: s/p I&D, gram stain with GPCs suspect due to MRSA. This is discretely separate from prior area of necrotizing fasciitis. --Will continue vancomycin. Repeat vanco T tomorrow --Follow up cultures as available. --likely be able to complete therapy with PO # Recent necrotizing fasciitis of right upper extremity: dressing in place, skin graft planned in future # Positive blood cultures: 1/2 sets with growth of Staph coagulase negative Staphylococcus consistent with skin contamination. No targeted therapy necessary. meds vancomycin 1.25gm IV q12H #3 Subjective: no specific c/o Objective: Vital Signs Temp Pulse Resp BP Pulse Ox 36.4 C 67 18 107/63 94 12/29/17 07:45 12/29/17 07:45 12/29/17 07:45 12/29/17 07:45 12/29/17 07:45 Microbiology 12/28/17 16:00 Gram Stain - Final Arm - Swab 12/25/17 23:45 Blood Panel (PCR) - Final Blood Staph Coagulase Negative 12/26/17 02:00 Gram Stain - Final Arm - Swab Wound Culture - Final MRSA Laboratory Results 12/29/17 05:25 12/29/17 05:25 12/28/17 12/29/17 12/30/17 05:59 05:59 05:59 Intake Total 3151 3693 Output Total 3850 1050 Balance -699 2643 - Physical Exam General Appearance: alert, no apparent distress Respiratory: No accessory muscle use Cardiac/Chest: regular rate, rhythm, No systolic murmur Extremities: other (R upper arm I&D site, mild erythema, no purlence, dressing w blood; R forearm w dressing in place) Skin: No rash Neuro/Psych: alert, normal mood/affect - Line/s LUE PICC Lines: No drainage, No erythema ICD10 Worksheet Patient Problems: Problems Problem Status Onset DKA (diabetic ketoacidoses) Acute Alcohol abuse Acute Alcohol dependence Acute Alcohol intoxication Acute Altered mental status Acute Atelectasis Acute Bronchitis Acute Diabetic foot ulcer Acute Hyperglycemia Acute Hyperglycemia due to type 2 diabetes mellitus Acute Leukocytosis Acute Osteomyelitis Acute Pneumonia Acute Right arm cellulitis Acute
--- NOTE | 2017-12-29 16:42 | ASMTCMCOM ---
CM Note CM Note Notes: Today Yovany at [facility] states Pt. is medically approved to go to [facility], but needs 'business office approval'. Francisco sent [facility] Medicaid application to via [employer]. Await [facility]'s decision. Pt. still needs to find his electric wheelchair at a [facility] and his prosthetic is at the [employer] office. SWer to work on case tomorrow with Pt. Date Signed: 12/29/2017 04:41 PM Electronically Signed By:Chantel Coleman LCSW
--- NOTE | 2017-12-29 16:55 | GCON ---
[f rep st] CONSULTATION NEURO CONSULT. REFERRING PHYSICIAN: Dr. Emmanuel CHIEF COMPLAINT: Transient neurologic symptoms. HISTORY OF PRESENT ILLNESS: The patient is a very pleasant 57-year-old gentleman who has significant past medical history related to severely uncontrolled diabetes. 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 Yesterday afternoon, he had blurred vision and a sense of generalized weakness, which came on fairly quickly. He had a blood sugar, from what the records indicate, as 83, he received D50, and had immediate normalization of his symptoms. Typically his blood glucose runs from 200-300 as outpatient apparently. He states that he has had symptoms like this previously from low blood sugar. He did have a CTA of the head and neck. CTA of the neck revealed bilateral atherosclerotic carotid disease, 40% to 50% on the right, 65% to 75% on the left. He denies any previous TIAs. The record indicates more left-sided weakness than generalized, which is different than what the patient told me today. However, the more stenotic carotid would not correlate with that asymmetry. REVIEW OF SYSTEM: Review of systems only pertinent to the HPI. Ten-point review was done. For past medical history, social history, family history, home medications, allergies, please see Dr. Buck's H and P. PHYSICAL EXAM: VITAL SIGNS: Blood pressure is 107/63, temp is 36.4. NEUROLOGIC: Patient has speech consistent with his poor dentition. He is awake and alert. No obvious language abnormalities. He has a right BKA. Otherwise, no focal motor signs or weakness now. Sensory exam shows neuropathy distally. IMPRESSION/PLAN: 1. Uncontrolled diabetes. 2. Transient neurologic symptoms. Overall, as the patient tells me the history, the episode would be most consistent with an event of low blood glucose in context to his very high blood glucose at baseline. We did discuss the possibility of transient ischemic attack and that being on anti-platelet therapy and statin therapy, along with tight control of other vascular risk factors, including his diabetes, would be optimal. He is agreeable. We also discussed his bilateral carotid disease, maximal left. This is not unusual in the setting of his vascular comorbidities. I recommend an outpatient consultation with Dr. Cristian Ng to review his carotid anatomy in the setting of an asymptomatic carotid obstruction on the left at this point, as he has no history of transient ischemic attack referable to that carotid from what the patient tells me. He is agreeable to the plan. No further recommendations now. We will sign off and follow up as needed. Please do not hesitate to call with any questions or changes in neurologic status with this patient. Thank you for the consultation. Fifty total minutes on the floor today, reviewing extensive medical history, imaging, and coordination of care, along with direct counseling with the patient. /[id number]/MODL MTDD
[2017-12-29] MEDS: MBX SOLN 30 ML BOTTLE PO PRN (18:41)
[2017-12-29] MEDS: MELATONIN 3 MG TAB PO SCH (20:15)
[2017-12-29] MEDS: morphINE SR 15 MG TAB PO SCH (20:16)
--- NOTE | 2017-12-29 21:47 | SOAPPROG ---
SOAP Progress Note Assessment/Plan: Assessment/Plan: 57yo M well-known to our service for recent RUE necrotizing fasciitis, s/p excisional debridement and wound vac therapy. Now admitted with DKA RUE wound healthy. Will ultimately require STSG- possibly during this hospital stay if medically improves/stable New abscess proximal to previous wound s/p I&D. Final cultures pending, likely MRSA Packing change daily IV antibiotics per ID Appreciate hospitalists. intensivists. S: No new complaints today. Patient feels much better since I&D yesterday - pressure relieved and pain controlled O: Lying in bed, comfortable, no acute distress No increased work of breathing RUE forearm dressing intact. R biceps abscess irrigated with NS, repacked with plain gauze. No surrounding induration, overlying erythema improving Objective: Vital Signs Temp Pulse Resp BP Pulse Ox 36.6 C 81 14 137/101 H 96 12/29/17 16:00 12/29/17 16:00 12/29/17 16:00 12/29/17 16:00 12/29/17 16:00 Microbiology 12/25/17 23:45 Blood Panel (PCR) - Final Blood Staph Coagulase Negative 12/28/17 16:00 Gram Stain - Final Arm - Swab Laboratory Results 12/29/17 05:25 12/29/17 19:10 12/28/17 12/29/17 12/30/17 05:59 05:59 05:59 Intake Total 3151 3693 490 Output Total 3850 1050 475 Balance -699 2643 15 PT 13.9 SEC (12.0-15.0) 12/25/17 23:30 INR 1.05 (0.83-1.16) 12/25/17 23:30 ICD10 Worksheet Patient Problems: Problems Problem Status Onset DKA (diabetic ketoacidoses) Acute Alcohol abuse Acute Alcohol dependence Acute Alcohol intoxication Acute Altered mental status Acute Atelectasis Acute Bronchitis Acute Diabetic foot ulcer Acute Hyperglycemia Acute Hyperglycemia due to type 2 diabetes mellitus Acute Leukocytosis Acute Osteomyelitis Acute Pneumonia Acute Right arm cellulitis Acute
[2017-12-30] MEDS: VANCOMYCIN 1.25 GM in NS 250 ML IV SCH ×2 (03:44→15:34)
[2017-12-30] MEDS: oxyCODONE IR 5 MG TAB PO PRN ×3 (04:13→18:35)
[2017-12-30] MEDS: LEVOTHYROXINE 150 MCG TAB PO SCH (05:39)
[2017-12-30 05:59] LABS: PLATELET COUNT 172 10^3/uL (150-400)
[2017-12-30] MEDS: POLYETHYLENE GLYCOL 3350 17 GM PKT PO SCH (09:00)
[2017-12-30] MEDS: INSULIN LISPRO 100 UNIT/ML SC SCH ×3 (09:00→17:45)
[2017-12-30] MEDS: NICOTINE 21 MG/24 HR PATCH TD SCH (09:01)
[2017-12-30] MEDS: SUCRALFATE 1 GM/10 ML UDCUP PO SCH ×4 (09:02→20:06)
[2017-12-30] MEDS: GABAPENTIN 300 MG CAP PO SCH ×3 (09:02→20:31)
[2017-12-30] MEDS: SENNOSIDES/DOCUSATE SODIUM TAB PO SCH ×2 (09:03→20:05)
[2017-12-30] MEDS: TAMSULOSIN HCL 0.4 MG CAP PO SCH (09:03)
[2017-12-30] MEDS: ENOXAPARIN 40 MG/0.4 ML SYR SC SCH (09:03)
[2017-12-30] MEDS: amLODIPine BESYLATE 5 MG TAB PO SCH (09:03)
[2017-12-30] MEDS: THIAMINE HCL 100 MG TAB PO SCH (09:03)
[2017-12-30] MEDS: INSULIN GLARGINE 100 UNITS/ML UNIT SC SCH (09:51)
[2017-12-30] MEDS: PANTOPRAZOLE SODIUM 40 MG VIAL IVP SCH (09:52)
[2017-12-30] MEDS: MBX SOLN 30 ML BOTTLE PO PRN (09:53)
--- NOTE | 2017-12-30 10:25 | SOAPPROG ---
SOAP Progress Note Assessment/Plan: Procedure: POD #2 s/p incision and drainage of right upper extremity abscess. Subjective: Patient is feeling well. Vocalized concerns about possible stroke symptoms (left arm weakness and left sided facial droop) that resolved Objective: Alert and oriented. Abscess incision is open with no signs of infection. Assessment: Necrotizing fasciitis (MRSA positive) of distal right upper extremity and abscess (culture pending) of right distal upper extremity. Plan: Will discuss case with Dr. Ng re CEA Skin graft forearm when cleared by medicine - HFB ready until then Nursing will pack upper arm daily with gauze 12/30/17 10:10 12/30/17 10:25 Objective: Vital Signs Temp Pulse Resp BP Pulse Ox 36.3 C 72 18 122/90 H 94 12/30/17 08:00 12/30/17 08:00 12/30/17 08:00 12/30/17 08:00 12/30/17 08:00 Microbiology 12/25/17 23:45 Blood Panel (PCR) - Final Blood Staph Coagulase Negative 12/28/17 16:00 Gram Stain - Final Arm - Swab Laboratory Results 12/30/17 05:45 12/30/17 05:45 18 12/30/17 12/31/17 05:59 05:59 05:59 Intake Total 3693 490 Output Total 1050 775 Balance 2643 -285 PT 13.9 SEC (12.0-15.0) 12/25/17 23:30 INR 1.05 (0.83-1.16) 12/25/17 23:30 ICD10 Worksheet Patient Problems: Problems Problem Status Onset DKA (diabetic ketoacidoses) Acute Alcohol abuse Acute Alcohol dependence Acute Alcohol intoxication Acute Altered mental status Acute Atelectasis Acute Bronchitis Acute Diabetic foot ulcer Acute Hyperglycemia Acute Hyperglycemia due to type 2 diabetes mellitus Acute Leukocytosis Acute Osteomyelitis Acute Pneumonia Acute Right arm cellulitis Acute
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
[2017-12-30] MEDS ORDERED: MAGNESIUM SULF 1 GM/DEXTROSE 100 ML IV ONE (10:58)
[2017-12-30] MEDS ORDERED: POTASSIUM CL 10 MEQ TAB PO ONE (11:27)
[2017-12-30] MEDS ORDERED: CALCIUM GLUCONATE 50 ML IV ONE (12:27)
[2017-12-30] MEDS ORDERED: CALCIUM GLUCONATE 1 GM in D5W 50 ML IV ONE (13:00)
--- NOTE | 2017-12-30 15:21 | HOSPPROG ---
Hospitalist Progress Note Assessment/Plan: # hx CVA - neurologic changes yesterday possibly recrudescence - start asa - LDL 52 - ICA stenosis 65-75% - Dr Ng will review - appreciate neuro consult # DM - will decrease lispro with neuro sx and relatively low gluc - glucs higher today (has been eating more) - will follow without insulin changes today - slight decr in glargine 28->25 - cont low dose sliding scale lispro # RUE necrotizing infection s/p debridement last month d/t clostridium perfringes and MRSA - abscess I&D'd - growing MRSA - cont vanc - needs skin graft # staph epi in BCx - suspect contaminant # CP - very related to PO intake - improving - GI cocktail prn - cont carafate - incr to protonix 40 iv BID # DKA with severe AGMA - resolved, gap closed # skin lesions - unclear cause # sepsis, ruled out - I currently do not think he had sepsis as no clear source , tachycardia better explained by dehydration/DKA Subjective: still having indigestion when eating Objective: Vital Signs Temp Pulse Resp BP Pulse Ox 36.3 C 72 18 122/90 H 94 12/30/17 08:00 12/30/17 08:00 12/30/17 08:00 12/30/17 08:00 12/30/17 08:00 Microbiology 12/28/17 16:00 Gram Stain - Final Arm - Swab Wound Culture - Final MRSA 12/25/17 23:45 Blood Panel (PCR) - Final Blood Staph Coagulase Negative Laboratory Results 12/30/17 05:45 12/30/17 05:45 12/29/17 12/30/17 12/31/17 05:59 05:59 05:59 Intake Total 3693 490 Output Total 1050 775 Balance 2643 -285 PT 13.9 SEC (12.0-15.0) 12/25/17 23:30 INR 1.05 (0.83-1.16) 12/25/17 23:[address] Grossman - Physical Exam Constitutional: chronically ill appearing, unkempt Cardiovascular: regular rate and rhythym, no murmur, rub, or gallop Respiratory: no respiratory distress, no rales or rhonchi Gastrointestinal: soft, non-tender abdomen, no palpable masses ICD10 Worksheet Patient Problems: Problems Problem Status Onset Alcohol intoxication Acute Hyperglycemia Acute Pneumonia Acute Bronchitis Acute Atelectasis Acute Alcohol dependence Acute Alcohol abuse Acute Diabetic foot ulcer Acute Osteomyelitis Acute Altered mental status Acute Right arm cellulitis Acute Leukocytosis Acute Hyperglycemia due to type 2 diabetes mellitus Acute DKA (diabetic ketoacidoses) Acute
--- NOTE | 2017-12-30 16:01 | ASMTCMCOM ---
CM Note CM Note Notes: This CM has been collaborating w/ Chantel Coleman LCSW, complex care binder caser on this case. JOSÉ MIGUEL spoke w/ Yovany at [facility]. Yovany reports that he is waiting on corporate to accept pt. Yovany reports that from a nursing perspective pt is appropriate. CM left a msg w/ Cam[place] from [facility] regarding pts prosthetic leg and electric w/c. CM to follow. Plan: SNF Date Signed: 12/30/2017 04:00 PM Electronically Signed By:ELVIE Louis
--- NOTE | 2017-12-30 16:55 | PCMIDPN ---
Assessment/Plan: # Right upper extremity abscess: s/p I&D, gram stain with GPCs suspect due to MRSA. This is discretely separate from prior area of necrotizing fasciitis. Minimal erythema exists. Will treat for total 10 days for abscess bc of prediction for development of severe soft tissue infections --dc vanc --doxy 100mg PO BID x 6 more days --call ID for additional questions # Recent necrotizing fasciitis of right upper extremity: good granulation in base # Positive blood cultures: 1/2 sets with growth of Staph coagulase negative Staphylococcus consistent with skin contamination. No targeted therapy necessary. meds vancomycin 1.25gm IV q12H #4 Subjective: patient c/o reflux Objective: Vital Signs Temp Pulse Resp BP Pulse Ox 36.6 C 82 18 116/73 92 12/30/17 16:00 12/30/17 16:00 12/30/17 16:00 12/30/17 16:00 12/30/17 16:00 Microbiology 12/28/17 16:00 Gram Stain - Final Arm - Swab Wound Culture - Final MRSA 12/25/17 23:45 Blood Panel (PCR) - Final Blood Staph Coagulase Negative Laboratory Results 12/30/17 05:45 12/30/17 05:45 12/29/17 12/30/17 12/31/17 05:59 05:59 05:59 Intake Total 3693 490 Output Total 1050 775 Balance 2643 -285 - Physical Exam General Appearance: alert, no apparent distress, obese Respiratory: lungs clear, No accessory muscle use Cardiac/Chest: regular rate, rhythm Extremities: other (R upper arm with I&D site with mild enduration surrounding; R forearm with good granulation in base of wound) Abdomen: non-tender, soft Skin: No rash Neuro/Psych: alert, other (flat affect) ICD10 Worksheet Patient Problems: Problems Problem Status Onset DKA (diabetic ketoacidoses) Acute Alcohol abuse Acute Alcohol dependence Acute Alcohol intoxication Acute Altered mental status Acute Atelectasis Acute Bronchitis Acute Diabetic foot ulcer Acute Hyperglycemia Acute Hyperglycemia due to type 2 diabetes mellitus Acute Leukocytosis Acute Osteomyelitis Acute Pneumonia Acute Right arm cellulitis Acute
[2017-12-30] MEDS: morphINE SR 15 MG TAB PO SCH (20:05)
[2017-12-30] MEDS: MELATONIN 3 MG TAB PO SCH (20:05)
[2017-12-30] MEDS: PANTOPRAZOLE SODIUM 40 MG TAB PO SCH (20:05)
[2017-12-30] MEDS: DOXYCYCLINE HYCLATE 100 MG CAP/TAB PO SCH (20:05)
[2017-12-31] MEDS: oxyCODONE IR 5 MG TAB PO PRN ×5 (00:07→21:35)
[2017-12-31] MEDS: LEVOTHYROXINE 150 MCG TAB PO SCH (04:46)
[2017-12-31] MEDS: SUCRALFATE 1 GM/10 ML UDCUP PO SCH ×4 (07:53→21:34)
[2017-12-31] MEDS: INSULIN LISPRO 100 UNIT/ML SC SCH ×3 (09:47→18:32)
[2017-12-31] MEDS: INSULIN GLARGINE 100 UNITS/ML UNIT SC SCH (09:48)
[2017-12-31] MEDS: ENOXAPARIN 40 MG/0.4 ML SYR SC SCH (09:48)
[2017-12-31] MEDS: PANTOPRAZOLE SODIUM 40 MG TAB PO SCH ×2 (09:50→21:35)
[2017-12-31] MEDS: THIAMINE HCL 100 MG TAB PO SCH (09:50)
[2017-12-31] MEDS: GABAPENTIN 300 MG CAP PO SCH ×3 (09:50→21:34)
[2017-12-31] MEDS: TAMSULOSIN HCL 0.4 MG CAP PO SCH (09:50)
[2017-12-31] MEDS: amLODIPine BESYLATE 5 MG TAB PO SCH (09:51)
[2017-12-31] MEDS: DOXYCYCLINE HYCLATE 100 MG CAP/TAB PO SCH ×2 (09:51→21:35)
[2017-12-31] MEDS: ASPIRIN EC 81 MG TAB PO SCH (09:52)
[2017-12-31] MEDS: SENNOSIDES/DOCUSATE SODIUM TAB PO SCH ×2 (09:52→21:34)
[2017-12-31] MEDS: NICOTINE 21 MG/24 HR PATCH TD SCH (09:52)
[2017-12-31] MEDS: POLYETHYLENE GLYCOL 3350 17 GM PKT PO SCH (09:58)
--- NOTE | 2017-12-31 12:39 | SOAPPROG ---
SOAP Progress Note Assessment/Plan: S: No new complaints today. Patient is feeling better. Pain controlled O: Lying in bed, comfortable, no acute distress No increased work of breathing RUE forearm dressings intact. Assessment/Plan: 57yo M well-known to our service for recent RUE necrotizing fasciitis, s/p excisional debridement and wound vac therapy. Now admitted with DKA Distal RUE wound healthy. Will ultimately require STSG- possibly during this hospital stay if medically improves/stable. Waiting for clearance from hospitalists S/p I&D of proximal RUE MRSA abscess - packing change daily IV antibiotics per ID Appreciate hospitalists Discussed c Dr. Foster. Objective: Vital Signs Temp Pulse Resp BP Pulse Ox 36.7 C 77 16 132/79 H 91 L 12/31/17 07:58 12/31/17 07:58 12/31/17 07:58 12/31/17 09:51 12/31/17 07:58 Microbiology 12/25/17 23:45 Blood Culture - Final Blood Staphylococcus Epidermidis Blood Panel (PCR) - Final Staph Coagulase Negative 12/25/17 23:45 Blood Culture - Final Blood 12/28/17 16:00 Gram Stain - Final Arm - Swab Wound Culture - Final MRSA Laboratory Results 12/30/17 05:45 12/31/17 04:10 12/30/17 12/31/17 01/01/18 05:59 05:59 05:59 Intake Total 490 850 Output Total 775 200 291 Balance -285 650 -291 PT 13.9 SEC (12.0-15.0) 12/25/17 23:30 INR 1.05 (0.83-1.16) 12/25/17 23:30 ICD10 Worksheet Patient Problems: Problems Problem Status Onset DKA (diabetic ketoacidoses) Acute Alcohol abuse Acute Alcohol dependence Acute Alcohol intoxication Acute Altered mental status Acute Atelectasis Acute Bronchitis Acute Diabetic foot ulcer Acute Hyperglycemia Acute Hyperglycemia due to type 2 diabetes mellitus Acute Leukocytosis Acute Osteomyelitis Acute Pneumonia Acute Right arm cellulitis Acute
[2017-12-31] MEDS: MBX SOLN 30 ML BOTTLE PO PRN (14:32)
--- NOTE | 2017-12-31 14:39 | HOSPPROG ---
Hospitalist Progress Note Assessment/Plan: # GERD - still quite severe - may need GI consult - esophagram ordered - cont carafate - incr to protonix 40 iv BID # hx CVA - neurologic changes yesterday possibly recrudescence - start asa - LDL 52 - ICA stenosis 65-75% - Dr Ng will review - appreciate neuro consult # DM - will decrease lispro with neuro sx and relatively low gluc - glucs higher today (has been eating more) - will follow without insulin changes today - slight decr in glargine 28->25 - cont low dose sliding scale lispro # RUE necrotizing infection s/p debridement last month d/t clostridium perfringes and MRSA - abscess I&D'd - vanc changed to doxy today - 6 more days - needs skin graft # staph epi in BCx - suspect contaminant # DKA with severe AGMA - resolved, gap closed # skin lesions - unclear cause # sepsis - given the new abscess identified later in this hospitalization, i do think that his initial presentation was sepsis (leukocytosis, tachy, tachypneic) Subjective: still c/o epigastric pain Objective: Vital Signs Temp Pulse Resp BP Pulse Ox 36.7 C 77 16 132/79 H 91 L 12/31/17 07:58 12/31/17 07:58 12/31/17 07:58 12/31/17 09:51 12/31/17 07:58 Microbiology 12/25/17 23:45 Blood Culture - Final Blood Staphylococcus Epidermidis Blood Panel (PCR) - Final Staph Coagulase Negative 12/25/17 23:45 Blood Culture - Final Blood 12/28/17 16:00 Gram Stain - Final Arm - Swab Wound Culture - Final MRSA Laboratory Results 12/30/17 05:45 12/31/17 04:10 12/30/17 12/31/17 01/01/18 05:59 05:59 05:59 Intake Total 490 850 Output Total 775 200 291 Balance -285 650 -291 PT 13.9 SEC (12.0-15.0) 12/25/17 23:30 INR 1.05 (0.83-1.16) 12/25/17 23:30 - Physical Exam Constitutional: uncomfortable Cardiovascular: regular rate and rhythym, no murmur, rub, or gallop Gastrointestinal: soft, non-tender abdomen, no palpable masses ICD10 Worksheet Patient Problems: Problems Problem Status Onset Alcohol intoxication Acute Hyperglycemia Acute Pneumonia Acute Bronchitis Acute Atelectasis Acute Alcohol dependence Acute Alcohol abuse Acute Diabetic foot ulcer Acute Osteomyelitis Acute Altered mental status Acute Right arm cellulitis Acute Leukocytosis Acute Hyperglycemia due to type 2 diabetes mellitus Acute DKA (diabetic ketoacidoses) Acute
[2017-12-31] MEDS ORDERED: CALCIUM GLUCONATE 50 ML IV ONE (14:54)
[2017-12-31] MEDS ORDERED: MAGNESIUM SULF 1 GM/DEXTROSE 100 ML IV ONE (14:54)
[2017-12-31] MEDS ORDERED: CALCIUM GLUCONATE 1 GM in NS 100 ML IV ONE ×2 (15:30→16:30)
--- NOTE | 2017-12-31 16:42 | ASMTCMCOM ---
CM Note CM Note Notes: Today Francisco spoke with Camden from the [facility] through [facility]. Camden has located Pt's electric wheelchair and will bring it to whatever SNF Pt. is placed in. Camden continues to look for Pt's prosthetic leg. Pt. states he thinks his prosthetic is at the [facility]. Today Francisco spoke with Yovany at [place] several times. Yovany states that Pt. is approved by the nuclear engineer for admission, but still needs to confirm with the 'business office' that he can be admitted with his Medicaid LTC benefit. Pt. is listed with a 'LINDA Medicaid' which specifically does not allow for LTC admissions per Yovany. Francisco let Yovany know that Francisco suspects Pt. has SSI benefits due to being listed as "disabled" on our facesheet. Francisco asked [employer] to see if they could confirm SSI status. If [employer] cannot assist, CM might have to contact SSA office to find out. Yovany at working on it too. Francisco updated Pt. in the room on the above happenings. Pt states he will also call around to try to locate his prosthetic. Per , Pt. will likely have a skin graft before d/c. Pt. will be here until next week as a result. CM to follow for d/c plan of care to Medicaid LTC placement - hopefully [facility] [place]. Date Signed: 12/31/2017 04:42 PM Electronically Signed By:Chantel Coleman LCSW
[2017-12-31] MEDS: morphINE SR 15 MG TAB PO SCH (21:34)
[2017-12-31] MEDS: MELATONIN 3 MG TAB PO SCH (21:35)
[2018-01-01] MEDS: oxyCODONE IR 5 MG TAB PO PRN ×6 (01:03→22:32)
[2018-01-01] MEDS: LEVOTHYROXINE 150 MCG TAB PO SCH (05:09)
[2018-01-01] MEDS: SUCRALFATE 1 GM/10 ML UDCUP PO SCH ×4 (07:47→21:57)
[2018-01-01] MEDS: INSULIN LISPRO 100 UNIT/ML SC SCH ×3 (07:47→17:59)
[2018-01-01] MEDS: GABAPENTIN 300 MG CAP PO SCH ×3 (09:28→21:56)
[2018-01-01] MEDS: ASPIRIN EC 81 MG TAB PO SCH (09:29)
[2018-01-01] MEDS: THIAMINE HCL 100 MG TAB PO SCH (09:29)
[2018-01-01] MEDS: DOXYCYCLINE HYCLATE 100 MG CAP/TAB PO SCH ×2 (09:29→21:57)
[2018-01-01] MEDS: TAMSULOSIN HCL 0.4 MG CAP PO SCH (09:29)
[2018-01-01] MEDS: PANTOPRAZOLE SODIUM 40 MG TAB PO SCH ×2 (09:29→21:56)
[2018-01-01] MEDS: SENNOSIDES/DOCUSATE SODIUM TAB PO SCH ×2 (09:29→21:56)
[2018-01-01] MEDS: amLODIPine BESYLATE 5 MG TAB PO SCH (09:30)
[2018-01-01] MEDS: INSULIN GLARGINE 100 UNITS/ML UNIT SC SCH (09:30)
[2018-01-01] MEDS: ENOXAPARIN 40 MG/0.4 ML SYR SC SCH (09:30)
[2018-01-01] MEDS: POLYETHYLENE GLYCOL 3350 17 GM PKT PO SCH (09:30)
[2018-01-01] MEDS: NICOTINE 21 MG/24 HR PATCH TD SCH (09:32)
--- NOTE | 2018-01-01 09:55 | HOSPPROG ---
Hospitalist Progress Note Assessment/Plan: # GERD? - still quite severe - may need GI consult for EGD - esophagram today - cont carafate - incr to protonix 40 iv BID # hx CVA - neurologic changes yesterday possibly recrudescence - start asa - LDL 52 - ICA stenosis 65-75% - initial report non-op per Dr Ng - appreciate neuro consult # DM - will decrease lispro with neuro sx and relatively low gluc - glucs higher today (has been eating more) will increase glargine 25U -> 25/ 5U - increase to standard dose sliding scale lispro # RUE necrotizing infection s/p debridement last month d/t clostridium perfringes and MRSA - abscess I&D'd - vanc changed to doxy today - 6 more days - needs skin graft - medically ok for skin graft # staph epi in BCx - suspect contaminant # DKA with severe AGMA - resolved, gap closed # skin lesions - unclear cause # sepsis - given the new abscess identified later in this hospitalization, i do think that his initial presentation was sepsis (leukocytosis, tachy, tachypneic) Subjective: still c/o pain with PO intake Objective: Vital Signs Temp Pulse Resp BP Pulse Ox 36.6 C 80 18 130/90 H 92 01/01/18 07:29 01/01/18 07:29 01/01/18 07:29 01/01/18 09:30 01/01/18 07:29 Microbiology 12/25/17 23:45 Blood Culture - Final Blood Staphylococcus Epidermidis Blood Panel (PCR) - Final Staph Coagulase Negative 12/25/17 23:45 Blood Culture - Final Blood Laboratory Results 12/30/17 05:45 01/01/18 04:10 12/31/17 01/01/18 01/02/18 05:59 05:59 05:59 Intake Total 850 500 Output Total 200 741 550 Balance 650 -241 -550 PT 13.9 SEC (12.0-15.0) 12/25/17 23:30 INR 1.05 (0.83-1.16) 12/25/17 23:30 - Physical Exam Constitutional: uncomfortable, unkempt Cardiovascular: regular rate and rhythym, no murmur, rub, or gallop Respiratory: no respiratory distress, no rales or rhonchi, clear to auscultation Gastrointestinal: normoactive bowel sounds, soft, non-tender abdomen Musculoskeletal: other (R BKA) ICD10 Worksheet Patient Problems: Problems Problem Status Onset Alcohol intoxication Acute Hyperglycemia Acute Pneumonia Acute Bronchitis Acute Atelectasis Acute Alcohol dependence Acute Alcohol abuse Acute Diabetic foot ulcer Acute Osteomyelitis Acute Altered mental status Acute Right arm cellulitis Acute Leukocytosis Acute Hyperglycemia due to type 2 diabetes mellitus Acute DKA (diabetic ketoacidoses) Acute
[2018-01-01] MEDS ORDERED: MAGNESIUM SULF 2 GM/WATER 50 ML IV ONE (10:53)
--- NOTE | 2018-01-01 14:12 | SOAPPROG ---
SOAP Progress Note Assessment/Plan: Procedure: A/P s/p incision and drainage of right upper extremity abscess. Continue daily dressing changes will proceed with stsg right forearm tomorrow NPO midnight Wound vac for 5-7 days post op No surgical intervention needed for TIA sympotms Subjective: Patient is feeling well. Objective: Singing today 12/30/17 10:10 12/30/17 10:25 01/01/18 14:11 Objective: Vital Signs Temp Pulse Resp BP Pulse Ox 36.6 C 80 18 130/90 H 92 01/01/18 07:29 01/01/18 07:29 01/01/18 07:29 01/01/18 09:30 01/01/18 07:29 Microbiology 12/25/17 23:45 Blood Culture - Final Blood Staphylococcus Epidermidis Blood Panel (PCR) - Final Staph Coagulase Negative 12/25/17 23:45 Blood Culture - Final Blood Laboratory Results 12/30/17 05:45 01/01/18 04:10 12/31/17 01/01/18 01/02/18 05:59 05:59 05:59 Intake Total 850 500 Output Total 200 741 550 Balance 650 -241 -550 PT 13.9 SEC (12.0-15.0) 12/25/17 23:30 INR 1.05 (0.83-1.16) 12/25/17 23:30 ICD10 Worksheet Patient Problems: Problems Problem Status Onset DKA (diabetic ketoacidoses) Acute Alcohol abuse Acute Alcohol dependence Acute Alcohol intoxication Acute Altered mental status Acute Atelectasis Acute Bronchitis Acute Diabetic foot ulcer Acute Hyperglycemia Acute Hyperglycemia due to type 2 diabetes mellitus Acute Leukocytosis Acute Osteomyelitis Acute Pneumonia Acute Right arm cellulitis Acute
[2018-01-01] MEDS ORDERED: VANCOMYCIN 1.75 GM in D5W 500 ML IV ONE (14:30)
[2018-01-01] MEDS ORDERED: INSULIN GLARGINE 100 UNITS/ML UNIT SC SCH (21:00)
[2018-01-01] MEDS: MELATONIN 3 MG TAB PO SCH (21:57)
[2018-01-01] MEDS: morphINE SR 15 MG TAB PO SCH (21:57)
[2018-01-02] MEDS: LEVOTHYROXINE 150 MCG TAB PO SCH (06:05)
[2018-01-02] MEDS: oxyCODONE IR 5 MG TAB PO PRN ×5 (06:08→23:35)
[2018-01-02] MEDS: SUCRALFATE 1 GM/10 ML UDCUP PO SCH ×4 (07:38→20:34)
[2018-01-02] MEDS ORDERED: THROMBIN (BOVINE) 20,000 UNIT SPRAY TP ONE (07:39)
[2018-01-02] MEDS: INSULIN LISPRO 100 UNIT/ML SC SCH ×3 (07:39→17:46)
[2018-01-02] MEDS ORDERED: MINERAL OIL 10 ML VIAL ONE (07:39)
--- NOTE | 2018-01-02 07:56 | PDANEPAE ---
ANE History of Present Illness 57 yo for i and d / stsg arm ANE Past Medical History - Cardiovascular History Hx Hypertension: Yes Hx Arrhythmias: Yes Hx Coronary Artery / Peripheral Vascular Disease: Yes - Pulmonary History Hx COPD: Yes Hx Oxygen in Use at Home: No Hx Sleep Apnea: Yes Sleep Apnea Screening Result - Last Documented: Positive - Endocrine History Hx Diabetes: Yes - Chronic Pain History Chronic Pain: Yes ANE Review of Systems Review of Systems: - Exercise capacity METS (RN): 3 METS ANE Patient History - Allergies Allergies/Adverse Reactions: No Known Allergies Allergy (Verified 12/25/17 20:33) - Home Medications Home medications: home medication list seen and reviewed Home Medications: Insulin Aspart [Novolog Flexpen] 6 - 14 unit SQ TIDMEAL 08/26/16 [Last Taken 07/26 17:00 10 units] Insulin Detemir [Levemir Flextouch] 37 unit SQ BID 08/26/16 [Last Taken 21:00] Nicotine [Nicoderm Cq 21 mg (*)] 21 mg TD DAILY PRN 08/26/16 [Last Taken Unknown ] Omeprazole 20 mg PO DAILY 08/26/16 [Last Taken 11/16/17] Sennosides/Docusate Sodium [Senokot-S] 1 tab PO BID 08/26/16 [Last Taken 21:00] Acetaminophen [Tylenol ES 500 mg (*)] 1,000 mg PO Q8HRS PRN 11/20/16 [Last Taken 11/16/17 08:00] oxyCODONE IR [Oxycodone Ir (*)] 10 - 20 mg PO Q4HRS PRN 11/20/16 [Last Taken 07/26 20:00 20 mg] Albuterol [Proventil Inhaler HFA (*)] 2 puffs IH Q4HRS PRN 11/17/17 [Last Taken Unknown] Levothyroxine [Synthroid 150 mcg (*)] 150 mcg PO DAILY06 11/17/17 [Last Taken ] PARoxetine HCL [Paxil 30mg (*)] 30 mg PO DAILY 11/17/17 [Last Taken 11/16/17] tiZANidine HCL [Zanaflex 2MG (*)] 4 mg PO HS 11/17/17 [Last Taken 11/16/17] morphINE SR [Ms Contin/Oramorph 15 mg (*)] 15 mg PO HS 12/27/17 [Last Taken Unknown] - NPO status NPO Status: no food or drink >8 hours NPO Since - Liquids (Date): 01/02/18 NPO Since - Liquids (Time): 00:00 NPO Since - Solids (Date): 01/02/18 NPO Since - Solids (Time): 00:00 - Anes Hx Anes Hx: no prior problems - Smoking Hx Smoking Status: Heavy smoker ANE Labs/Vital Signs - Labs Result Diagrams: 12/30/17 05:45 01/02/18 04:49 - Vital Signs Blood Pressure: 101/58 Heart Rate: 66 Respiratory Rate: 16 O2 Sat (%): 91 Height: 6 ft 4 in Weight: 122.47 kg ANE Physical Exam - Airway Neck exam: FROM Mallampati Score: Class 2 Mouth exam: poor dentition - Pulmonary Pulmonary: no respiratory distress - Cardiovascular Cardiovascular: regular rate and rhythym - ASA Status ASA Status: III ANE Anesthesia Plan Anesthesia Plan: general endotracheal anesthesia
[2018-01-02] MEDS ORDERED: VANCOMYCIN HCL/NORMAL SALINE 250 ML IV ONE (08:00)
[2018-01-02] MEDS ORDERED: VANCOMYCIN 1.75 GM in D5W 500 ML IV ONE (08:00)
[2018-01-02] MEDS ORDERED: fentaNYL 250 MCG/5 ML INJ ONE (08:03)
[2018-01-02] MEDS ORDERED: PROPOFOL/EMULSION 500 MG/50 ML BOTTLE IV ONE (08:03)
[2018-01-02] MEDS ORDERED: ALBUTEROL 3 ML DEYVIAL IH PRN (08:32)
[2018-01-02] MEDS ORDERED: ONDANSETRON 4 MG/2 ML VIAL IVP PRN (08:32)
[2018-01-02] MEDS ORDERED: NALOXONE HCL 0.4 MG/ML INJ IVP PRN (08:32)
[2018-01-02] MEDS ORDERED: ROCURONIUM 50 MG/5 ML VIAL ONE (08:34)
[2018-01-02] MEDS ORDERED: SUGAMMADEX SODIUM 200 MG/2 ML VIAL IVP ONE (08:34)
[2018-01-02] MEDS ORDERED: fentaNYL 100 MCG/2 ML INJ ONE (09:11)
--- NOTE | 2018-01-02 09:12 | POSTOPPROG ---
Post Op Note Date of Operation: 01/02/18 Surgeon: Tabitha Foster Anesthesiologist: amisha Anesthesia: GET(General Endotracheal) Pre-op Diagnosis: nec fasc and abscess Post-op Diagnosis: same Indication: 57 yo with nec fasc and upper arm abscess Procedure: debridement, stsg, incision and drainage Findings: 10x3.5x0.2cm Inf/Abcess present in the surg proc area at time of surgery?: Yes Depth: Superfical (Skin SQ) EBL: Minimal Specimen(s): none
[2018-01-02] MEDS: fentaNYL 100 MCG/2 ML INJ IVP PRN ×3 (09:15→09:38)
--- NOTE | 2018-01-02 09:28 | POSTANESTH ---
Post Anesthetic Evaluation Cardiovascular Status: Normal, Stable Respiratory Status: Normal, Stable Level of Consciousness/Mental Status: Can Participate in Eval Pain Control: Adequate, Prn Tx Ordered Nausea/Vomiting Control: Adequate, Prn Tx Ordered Complications Possibly Related to Anesthesia: None Noted
--- NOTE | 2018-01-02 09:42 | GOP ---
[f rep st] OPERATIVE REPORT DATE OF OPERATION: 01/02/2018 SURGEON: Tabitha Foster MD ANESTHESIA: General. ANESTHESIOLOGIST: Dr. Zita Nickerson. PREOPERATIVE DIAGNOSIS: Right arm necrotizing fasciitis and methicillin-resistant Staphylococcus aur eus abscess. POSTOPERATIVE DIAGNOSIS: Right arm necrotizing fasciitis and methicillin-resistant Staphylococcus au reus abscess. PROCEDURE PERFORMED: 1. Debridement skin/soft tissue, 10 x 3.5 x 0.2 cm, and split-thickness skin graft. 2. Incision and drainage, right upper arm abscess. FINDINGS: Wound on forearm measured 10 x 3.5 x 0.2 cm. The abscess on his right upper arm had sever e undermining with necrotic tissue. I opened this up and it measured 2 x 2 x 1.5 cm. SPECIMENS: None. ESTIMATED BLOOD LOSS: 10 cc. INDICATIONS: The patient is a 57-year-old who initially had necrotizing fasciitis of his right forea rm. I debrided this and he has had wound VAC placement. He is readmitted for DKA and he also had an abscess on his right upper arm. Incision and drainage was performed at the bedside. DESCRIPTION OF PROCEDURE: Patient was brought into the operating room, placed supine on the table. General anesthesia was administered. His right thigh, right arm were prepped and draped in the usual sterile fashion. I debrided the wound on his right lower arm with a knife until there was healthy b leeding tissue. It measured 10 x 3.5 x 0.2 cm. I obtained a split-thickness skin graft from his rig ht thigh, measured 1/1200th of an inch and placed this on the wound on the forearm, where I stapled i t into place, followed by Adaptic Touch and a wound VAC. An epinephrine-soaked sponge was placed on the right thigh. I obtained hemostasis with electrocautery, Sandra, Mepilex transfer, and a Tegaderm were placed. I then explored the wound on his right upper arm. It had severe undermining with necr otic tissue. I excised the necrotic tissue. I cleaned the base. It measured 2 x 2 x 1.5 cm. Packe d with Sandra, Hydrofera Blue and Allevyn. He was awakened in the operating room, extubated, transfe rred to PACU in stable condition. /[id number]/MODL
[2018-01-02] MEDS: TAMSULOSIN HCL 0.4 MG CAP PO SCH (10:10)
[2018-01-02] MEDS: amLODIPine BESYLATE 5 MG TAB PO SCH (10:11)
[2018-01-02] MEDS: POLYETHYLENE GLYCOL 3350 17 GM PKT PO SCH (10:11)
[2018-01-02] MEDS: GABAPENTIN 300 MG CAP PO SCH ×3 (10:11→20:34)
[2018-01-02] MEDS: SENNOSIDES/DOCUSATE SODIUM TAB PO SCH ×2 (10:11→20:34)
[2018-01-02] MEDS: PANTOPRAZOLE SODIUM 40 MG TAB PO SCH ×2 (10:12→20:34)
[2018-01-02] MEDS: ASPIRIN EC 81 MG TAB PO SCH (10:12)
[2018-01-02] MEDS: THIAMINE HCL 100 MG TAB PO SCH (10:12)
[2018-01-02] MEDS: NICOTINE 21 MG/24 HR PATCH TD SCH (10:14)
[2018-01-02] MEDS: ENOXAPARIN 40 MG/0.4 ML SYR SC SCH (10:14)
[2018-01-02] MEDS: INSULIN GLARGINE 100 UNITS/ML UNIT SC SCH (10:20)
[2018-01-02] MEDS: DOXYCYCLINE HYCLATE 100 MG CAP/TAB PO SCH ×2 (11:17→20:34)
[2018-01-02] MEDS ORDERED: INSULIN GLARGINE 100 UNITS/ML UNIT SC SCH (13:11)
--- NOTE | 2018-01-02 13:12 | HOSPPROG ---
Hospitalist Progress Note Assessment/Plan: # post-prandial pain - possibly improved today - informally discussed with Dr Yanes - he feel that if it is not resolved in a few days then he would do an EGD - would need to be formally consulted - esophagram with possible gastritis, mild reflux - check h. pylori - cont carafate - incr to protonix 40 iv BID # RUE necrotizing infection s/p debridement last month d/t clostridium perfringes and MRSA - abscess I&D'd - vanc changed to doxy today - 5 more days - s/p skin graft today by Dr Foster - now with wound vac; keep inpatient for 5 more days with wound vac # hx CVA - had neurological changes in setting of hypoglycemia - start asa - LDL 52 - ICA stenosis 65-75% - non-op per Dr Ng # DM - will decrease lispro with neuro sx and relatively low gluc - glargine increased again today (still below home levels) - standard dose sliding scale lispro # staph epi in BCx - suspect contaminant # DKA with severe AGMA - resolved, gap closed # sepsis - given the new abscess identified later in this hospitalization, i do think that his initial presentation was sepsis (leukocytosis, tachy, tachypneic) Subjective: s/p skin graft; still c/o epigastric pain Objective: Vital Signs Temp Pulse Resp BP Pulse Ox 36.5 C 73 16 114/72 92 01/02/18 11:58 01/02/18 11:58 01/02/18 11:58 01/02/18 11:58 01/02/18 11:58 Laboratory Results 12/30/17 05:45 01/02/18 04:49 01/01/18 01/02/18 01/03/18 05:59 05:59 05:59 Intake Total 500 950 50 Output Total 741 2100 Balance -241 -1150 50 PT 13.9 SEC (12.0-15.0) 12/25/17 23:30 INR 1.05 (0.83-1.16) 12/25/17 23:[address] Foster - Physical Exam Constitutional: chronically ill appearing, unkempt Cardiovascular: regular rate and rhythym, no murmur, rub, or gallop Respiratory: no respiratory distress, no rales or rhonchi Gastrointestinal: soft, non-tender abdomen, no palpable masses ICD10 Worksheet Patient Problems: Problems Problem Status Onset Alcohol intoxication Acute Hyperglycemia Acute Pneumonia Acute Bronchitis Acute Atelectasis Acute Alcohol dependence Acute Alcohol abuse Acute Diabetic foot ulcer Acute Osteomyelitis Acute Altered mental status Acute Right arm cellulitis Acute Leukocytosis Acute Hyperglycemia due to type 2 diabetes mellitus Acute DKA (diabetic ketoacidoses) Acute
[2018-01-02] MEDS ORDERED: MAGNESIUM SULF 1 GM/DEXTROSE 100 ML IV ONE (15:10)
[2018-01-02] MEDS: MELATONIN 3 MG TAB PO SCH (20:33)
[2018-01-02] MEDS: morphINE SR 15 MG TAB PO SCH (20:34)
[2018-01-02] MEDS ORDERED: D50W 25 GM/50 ML VIAL IVP PRN (23:00)
[2018-01-03] MEDS: oxyCODONE IR 5 MG TAB PO PRN ×5 (04:57→21:15)
[2018-01-03] MEDS: LEVOTHYROXINE 150 MCG TAB PO SCH (04:57)
[2018-01-03 05:28] LABS: PLATELET COUNT 235 10^3/uL (150-400)
[2018-01-03] MEDS: SUCRALFATE 1 GM/10 ML UDCUP PO SCH ×4 (08:44→21:15)
[2018-01-03] MEDS: NICOTINE 21 MG/24 HR PATCH TD SCH (08:44)
[2018-01-03] MEDS: INSULIN LISPRO 100 UNIT/ML SC SCH ×3 (08:46→18:09)
[2018-01-03] MEDS: INSULIN GLARGINE 100 UNITS/ML UNIT SC SCH ×2 (08:46→21:17)
[2018-01-03] MEDS: GABAPENTIN 300 MG CAP PO SCH ×3 (08:48→21:15)
[2018-01-03] MEDS: TAMSULOSIN HCL 0.4 MG CAP PO SCH (08:48)
[2018-01-03] MEDS: amLODIPine BESYLATE 5 MG TAB PO SCH (08:48)
[2018-01-03] MEDS: THIAMINE HCL 100 MG TAB PO SCH (08:48)
[2018-01-03] MEDS: DOXYCYCLINE HYCLATE 100 MG CAP/TAB PO SCH ×2 (08:48→21:16)
[2018-01-03] MEDS: ASPIRIN EC 81 MG TAB PO SCH (08:48)
[2018-01-03] MEDS: SENNOSIDES/DOCUSATE SODIUM TAB PO SCH ×2 (08:48→21:16)
[2018-01-03] MEDS: PANTOPRAZOLE SODIUM 40 MG TAB PO SCH ×2 (08:48→21:17)
[2018-01-03] MEDS: POLYETHYLENE GLYCOL 3350 17 GM PKT PO SCH (08:49)
[2018-01-03] MEDS: ENOXAPARIN 40 MG/0.4 ML SYR SC SCH (08:59)
[2018-01-03] MEDS ORDERED: CALCIUM GLUCONATE 50 ML IV ONE (09:30)
[2018-01-03] MEDS ORDERED: MAGNESIUM SULF 1 GM/DEXTROSE 100 ML IV ONE (09:31)
[2018-01-03] MEDS ORDERED: CALCIUM GLUCONATE 1 GM in D5W 50 ML IV ONE (10:00)
--- NOTE | 2018-01-03 10:18 | SOAPPROG ---
SOAP Progress Note Assessment/Plan: Assessment/Plan: 57yo M well-known to our service for recent RUE necrotizing fasciitis, POD #1 s/p split thickness skin graft of Right forearm wound and surgical debridement of proximal RUE abscess. Changed dressing over donor graft site on Right proximal thigh with Mepilex transfer and Tegaderm. Changed Allevyn dressing over Right proximal arm abscess - van and hydrofera blue to be changed q3d Continue wound vac x 1 week uninterrupted IV antibiotics per ID S: No new complaints today. Increased pain at right thigh donor site and right upper arm abscess. No fevers. Very upset this morning that his coffee is 20 minutes late O: Lying in bed, comfortable, no acute distress RESP:No increased work of breathing SKIN: R forearm wound vac in place to suction. No redness, swelling or other signs of infection. R thigh donor site dressing changed, wound CDI with no active bleeding or evidence of infection. R upper arm abscess dressing intact, no surrounding erythema Objective: Vital Signs Temp Pulse Resp BP Pulse Ox 36.7 C 74 18 127/84 H 97 01/03/18 07:43 01/03/18 07:43 01/03/18 07:43 01/03/18 08:48 01/03/18 07:43 Laboratory Results 01/03/18 05:10 01/03/18 05:18 01/02/18 01/03/18 01/04/18 05:59 05:59 05:59 Intake Total 950 1450 Output Total 2100 1000 Balance -1150 450 PT 13.9 SEC (12.0-15.0) 12/25/17 23:30 INR 1.05 (0.83-1.16) 12/25/17 23:30 ICD10 Worksheet Patient Problems: Problems Problem Status Onset DKA (diabetic ketoacidoses) Acute Alcohol abuse Acute Alcohol dependence Acute Alcohol intoxication Acute Altered mental status Acute Atelectasis Acute Bronchitis Acute Diabetic foot ulcer Acute Hyperglycemia Acute Hyperglycemia due to type 2 diabetes mellitus Acute Leukocytosis Acute Osteomyelitis Acute Pneumonia Acute Right arm cellulitis Acute
--- NOTE | 2018-01-03 14:20 | HOSPPROG ---
Hospitalist Progress Note Assessment/Plan: Assessment: 57 yo M p/w acute DKA and severe sepsis in the setting of RUE necrotizing abscess Plan: # possible gastritis and reflux. Improving s/p carafate and ppi bid, continue - H. pylori breath pending # RUE necrotizing abscess s/p I&D w/ MRSA on wound cx - ongoing wound vac care by Dr. Foster, anticipate 5 days, then TBD whether patient will require vac at SNF vs. removal prior to transfer # Chronic pain w/ continuous opiate dependency. Patient reports incomplete pain relief on current Rx - counseled patient that we can adjust the dose range on PRN oxy to 10-30mg PRN , cont MS cont 15 HS siria, adjust gabapentin to 900 tid and gauge effect - attempt to wean off of IV morphine # hx CVA - had revisitation in setting of hypoglycemia - start asa - LDL 52 - ICA stenosis 65-75% - non-op per Dr Ng # DM2 - ongoing hyperglycemia, increase lantus 25/20, gauge effect # staph epi in BCx - suspect contaminant # DKA - acute, resolved # metabolic acidosis - acute, 2/2 DKA and lactic acid, hypovolemia, resolved # severe sepsis - POA, evidenced by autonomic dysregulation in setting of infxn (abscess), w/ end-organ failure (lactic acidosis) w/ leukocytosis/tachypnea/ tachycardia diet. ADA ppx. High risk, levnox 40 code. full dispo. ADD uncertain, after wound vac reassess/removal by Dr. Foster Subjective: patient requesing uptitration of pain Rx, in R thigh Objective: Vital Signs Temp Pulse Resp BP Pulse Ox 36.8 C 71 18 94/65 L 94 01/03/18 11:29 01/03/18 11:29 01/03/18 11:29 01/03/18 11:29 01/03/18 11:29 Laboratory Results 01/03/18 05:10 01/03/18 05:18 01/02/18 01/03/18 01/04/18 05:59 05:59 05:59 Intake Total 950 1450 Output Total 2100 1000 Balance -1150 450 PT 13.9 SEC (12.0-15.0) 12/25/17 23:30 INR 1.05 (0.83-1.16) 12/25/17 23:30 - Time Spent With Patient Time Spent with Patient: greater than 35 minutes Time Spent with Patient: Greater than 35 minutes spent on this patients care, greater than 50% of time spent counseling, educating, and coordinating care regarding the above mentioned plan. - Physical Exam Constitutional: no apparent distress, chronically ill appearing, uncomfortable, No not in pain (moderate) Cardiovascular: No systolic murmur (distant), No tachycardia, No edema Respiratory: no respiratory distress, no rales or rhonchi, clear to auscultation Gastrointestinal: normoactive bowel sounds, soft, non-tender abdomen, no palpable masses Skin: other (no erythema around vac, small punctate ulcerations R inner thigh) Neurologic: AAOx3 Psychiatric: interacting appropriately, not anxious, not encephalopathic, thought process linear ICD10 Worksheet Patient Problems: Problems Problem Status Onset Alcohol intoxication Acute Hyperglycemia Acute Pneumonia Acute Bronchitis Acute Atelectasis Acute Alcohol dependence Acute Alcohol abuse Acute Diabetic foot ulcer Acute Osteomyelitis Acute Altered mental status Acute Right arm cellulitis Acute Leukocytosis Acute Hyperglycemia due to type 2 diabetes mellitus Acute DKA (diabetic ketoacidoses) Acute
--- NOTE | 2018-01-03 15:18 | ASMTCMCOM ---
CM Note CM Note Notes: CM spoke w/ Dr. Jeffers regarding d/c POC. CM spoke w/ GARY Puente regarding d/c POC. Surgery plans on keeping the wound vac on for 5 days over the skin graph. Pt will most likely be able to d/c on Wednesday at the earliest. Updates sent to Connie Hicks. CM to follow. Plan: Connie Hicks Date Signed: 01/03/2018 03:17 PM Electronically Signed By:ELVIE Louis
[2018-01-03] MEDS: MELATONIN 3 MG TAB PO SCH (21:16)
[2018-01-03] MEDS: morphINE SR 15 MG TAB PO SCH (21:17)
[2018-01-04] MEDS: oxyCODONE IR 5 MG TAB PO PRN ×4 (07:08→22:00)
[2018-01-04] MEDS: LEVOTHYROXINE 150 MCG TAB PO SCH (07:08)
[2018-01-04] MEDS: SUCRALFATE 1 GM/10 ML UDCUP PO SCH ×4 (07:15→22:05)
[2018-01-04] MEDS: INSULIN LISPRO 100 UNIT/ML SC SCH ×3 (08:00→17:58)
--- NOTE | 2018-01-04 10:00 | SOAPPROG ---
SOAP Progress Note Assessment/Plan: Assessment/Plan: 57yo M well-known to our service for recent RUE necrotizing fasciitis, POD #2 s/p split thickness skin graft of Right forearm wound and surgical debridement of proximal RUE abscess. Continue wound vac x 1 week uninterrupted IV antibiotics per ID S: Pt asleep. O: Lying in bed, appears comfortable, no acute distress RESP: No increased work of breathing SKIN: R forearm wound vac in place to suction. No redness, swelling or other signs of infection. Objective: Vital Signs Temp Pulse Resp BP Pulse Ox 36.7 C 65 16 96/65 L 96 01/04/18 07:09 01/04/18 07:09 01/04/18 07:09 01/04/18 07:09 01/04/18 07:09 Laboratory Results 01/03/18 05:10 01/03/18 05:18 01/03/18 01/04/18 01/05/18 05:59 05:59 05:59 Intake Total 1450 830 Output Total 1000 800 Balance 450 30 PT 13.9 SEC (12.0-15.0) 12/25/17 23:30 INR 1.05 (0.83-1.16) 12/25/17 23:30 ICD10 Worksheet Patient Problems: Problems Problem Status Onset DKA (diabetic ketoacidoses) Acute Alcohol abuse Acute Alcohol dependence Acute Alcohol intoxication Acute Altered mental status Acute Atelectasis Acute Bronchitis Acute Diabetic foot ulcer Acute Hyperglycemia Acute Hyperglycemia due to type 2 diabetes mellitus Acute Leukocytosis Acute Osteomyelitis Acute Pneumonia Acute Right arm cellulitis Acute
[2018-01-04] MEDS: GABAPENTIN 300 MG CAP PO SCH ×3 (10:45→22:02)
[2018-01-04] MEDS: DOXYCYCLINE HYCLATE 100 MG CAP/TAB PO SCH ×2 (10:46→22:04)
[2018-01-04] MEDS: THIAMINE HCL 100 MG TAB PO SCH (10:46)
[2018-01-04] MEDS: ASPIRIN EC 81 MG TAB PO SCH (10:46)
[2018-01-04] MEDS: PANTOPRAZOLE SODIUM 40 MG TAB PO SCH ×2 (10:46→22:04)
[2018-01-04] MEDS: SENNOSIDES/DOCUSATE SODIUM TAB PO SCH ×2 (10:46→22:03)
[2018-01-04] MEDS: TAMSULOSIN HCL 0.4 MG CAP PO SCH (10:46)
[2018-01-04] MEDS: ENOXAPARIN 40 MG/0.4 ML SYR SC SCH (10:46)
[2018-01-04] MEDS: POLYETHYLENE GLYCOL 3350 17 GM PKT PO SCH (10:47)
[2018-01-04] MEDS: NICOTINE 21 MG/24 HR PATCH TD SCH (10:47)
[2018-01-04] MEDS: amLODIPine BESYLATE 5 MG TAB PO SCH (10:53)
[2018-01-04] MEDS: INSULIN GLARGINE 100 UNITS/ML UNIT SC SCH ×2 (11:27→22:04)
--- NOTE | 2018-01-04 14:49 | ASMTCMCOM ---
CM Note CM Note Notes: CM met w/ pt for dispo planning. CM went over the d/c plans w/ him. Notified pt that he will most likely be here until Wednesday the earliest. Pt is concerned about the whereabouts of his prosthetic leg and two bag packs that he might've left behind at [facility]. CM left a msg for [place] [phone] at [facility]. CM to notified pt once they speak to [place]. CM to follow. Plan: Connie Hicks Date Signed: 01/04/2018 02:48 PM Electronically Signed By:ELVIE Louis
[2018-01-04] MEDS ORDERED: MAGNESIUM CITRATE 300 ML BOTTLE PO ONE (16:01)
--- NOTE | 2018-01-04 19:04 | HOSPPROG ---
Hospitalist Progress Note Assessment/Plan: Assessment: 57 yo M p/w acute DKA and severe sepsis in the setting of RUE necrotizing abscess Plan: # possible gastritis and reflux. Improving s/p carafate and ppi bid, continue - H. pylori breath pending # RUE necrotizing abscess s/p I&D w/ MRSA on wound cx - ongoing wound vac care by Dr. Foster, anticipate 1 week uninterrupted, then TBD whether patient will require vac at SNF vs. removal prior to transfer - 10 total days Abx (4 days Vanco, 6 days Doxy, stop tomorrow) # Chronic pain w/ continuous opiate dependency. Patient reports better pain relief on current Rx - adjusted the dose range on PRN oxy to 10-30mg PRN, cont MS cont 15 HS siria, adjust gabapentin to 900 tid and gauge effect - attempt to wean off of IV morphine # Acute hypoxia. Unclear etiology, new problem, further w/u indicated. CXR w/o focal infiltrate (personally interpreted), dimer positive, at risk for PE -get CTA now -suspect atelectasis, get IS # hx CVA - had revisitation in setting of hypoglycemia - started asa - LDL 52 - ICA stenosis 65-75% - non-op per Dr Ng # DM2 - ongoing hyperglycemia, cont lantus 25/20, gauge effect # staph epi in BCx - suspect contaminant # constipation - give mag citrate today, ongoing bowel protocol # DKA - acute, resolved # metabolic acidosis - acute, 2/2 DKA and lactic acid, hypovolemia, resolved # severe sepsis - POA, evidenced by autonomic dysregulation in setting of infxn (abscess), w/ end-organ failure (lactic acidosis) w/ leukocytosis/tachypnea/ tachycardia diet. ADA ppx. High risk, levnox 40 code. full dispo. ADD uncertain, after wound vac reassess/removal by Dr. Foster Subjective: pain improved from day prior, poor energy Objective: Vital Signs Temp Pulse Resp BP Pulse Ox 36.4 C 78 18 100/48 L 90 L 01/04/18 15:40 01/04/18 15:40 01/04/18 15:40 01/04/18 15:40 01/04/18 15:40 Laboratory Results 01/03/18 05:10 01/03/18 05:18 01/03/18 01/04/18 01/05/18 05:59 05:59 05:59 Intake Total 1450 830 Output Total 1000 800 750 Balance 450 30 -750 PT 13.9 SEC (12.0-15.0) 12/25/17 23:30 INR 1.05 (0.83-1.16) 12/25/17 23:30 - Physical Exam Constitutional: no apparent distress, not in pain, chronically ill appearing, obese, uncomfortable Ears, Nose, Mouth, Throat: hard of hearing Cardiovascular: regular rate and rhythym, no murmur, rub, or gallop, No edema Respiratory: inspiratory crackles, No reduced air movement, No expiratory wheeze , No bronchial breath sounds, No respiratory distress Gastrointestinal: soft, non-tender abdomen, no palpable masses, No normoactive bowel sounds (hypoactive bowel sounds), No distension Skin: other (no erythema around RUE site, small ulcerations RLE w/ mild erythema , no pustulence) Neurologic: AAOx3 Psychiatric: interacting appropriately, not anxious, not encephalopathic, thought process linear, flat affect ICD10 Worksheet Patient Problems: Problems Problem Status Onset DKA (diabetic ketoacidoses) Acute Alcohol abuse Acute Alcohol dependence Acute Alcohol intoxication Acute Altered mental status Acute Atelectasis Acute Bronchitis Acute Diabetic foot ulcer Acute Hyperglycemia Acute Hyperglycemia due to type 2 diabetes mellitus Acute Leukocytosis Acute Osteomyelitis Acute Pneumonia Acute Right arm cellulitis Acute
[2018-01-04] MEDS ORDERED: IOPAMIDOL (ISOVUE 370) 100 ML BTL IV ONE (19:35)
[2018-01-04] MEDS: morphINE SR 15 MG TAB PO SCH (22:03)
[2018-01-04] MEDS: MELATONIN 3 MG TAB PO SCH (22:05)
[2018-01-05] MEDS: oxyCODONE IR 5 MG TAB PO PRN ×5 (03:12→22:28)
[2018-01-05] MEDS: LEVOTHYROXINE 150 MCG TAB PO SCH (05:52)
[2018-01-05] MEDS: SUCRALFATE 1 GM/10 ML UDCUP PO SCH ×4 (05:52→22:31)
[2018-01-05 06:12] LABS: PLATELET COUNT 246 10^3/uL (150-400)
[2018-01-05] MEDS: INSULIN LISPRO 100 UNIT/ML SC SCH ×3 (07:39→16:50)
[2018-01-05] MEDS: GABAPENTIN 300 MG CAP PO SCH ×3 (09:13→22:29)
[2018-01-05] MEDS: amLODIPine BESYLATE 5 MG TAB PO SCH (09:13)
[2018-01-05] MEDS: DOXYCYCLINE HYCLATE 100 MG CAP/TAB PO SCH (09:14)
[2018-01-05] MEDS: SENNOSIDES/DOCUSATE SODIUM TAB PO SCH ×2 (09:14→22:30)
[2018-01-05] MEDS: THIAMINE HCL 100 MG TAB PO SCH (09:14)
[2018-01-05] MEDS: ASPIRIN EC 81 MG TAB PO SCH (09:14)
[2018-01-05] MEDS: TAMSULOSIN HCL 0.4 MG CAP PO SCH (09:14)
[2018-01-05] MEDS: ENOXAPARIN 40 MG/0.4 ML SYR SC SCH (09:14)
[2018-01-05] MEDS: PANTOPRAZOLE SODIUM 40 MG TAB PO SCH ×2 (09:14→22:29)
[2018-01-05] MEDS: INSULIN GLARGINE 100 UNITS/ML UNIT SC SCH ×2 (09:14→22:31)
[2018-01-05] MEDS: POLYETHYLENE GLYCOL 3350 17 GM PKT PO SCH (09:15)
[2018-01-05] MEDS: NICOTINE 21 MG/24 HR PATCH TD SCH (09:15)
--- NOTE | 2018-01-05 14:54 | SOAPPROG ---
SOAP Progress Note Assessment/Plan: Assessment/Plan: 57yo M well-known to our service for recent RUE necrotizing fasciitis, s/p split thickness skin graft of Right forearm wound and surgical debridement of proximal RUE abscess. Continue wound vac until Wednesday01/07/18 uninterrupted IV antibiotics per ID Appreciate hospitalists Seen c Dr. Foster S: Eating breakfast. No new complaints today. O: Sitting upright in bed, appears comfortable, no acute distress RESP: No increased work of breathing SKIN: R forearm wound vac in place to suction. No redness, swelling or other signs of infection. Other dressings intact Objective: Vital Signs Temp Pulse Resp BP Pulse Ox 36.6 C 72 18 108/72 94 01/05/18 11:38 01/05/18 11:38 01/05/18 11:38 01/05/18 11:38 01/05/18 11:38 Laboratory Results 01/05/18 06:00 01/05/18 06:00 01/04/18 01/05/18 01/06/18 05:59 05:59 05:59 Intake Total 830 Output Total 800 2465 Balance 30 -2465 PT 13.9 SEC (12.0-15.0) 12/25/17 23:30 INR 1.05 (0.83-1.16) 12/25/17 23:30 ICD10 Worksheet Patient Problems: Problems Problem Status Onset DKA (diabetic ketoacidoses) Acute Alcohol abuse Acute Alcohol dependence Acute Alcohol intoxication Acute Altered mental status Acute Atelectasis Acute Bronchitis Acute Diabetic foot ulcer Acute Hyperglycemia Acute Hyperglycemia due to type 2 diabetes mellitus Acute Leukocytosis Acute Osteomyelitis Acute Pneumonia Acute Right arm cellulitis Acute
--- NOTE | 2018-01-05 15:55 | HOSPPROG ---
Hospitalist Progress Note Assessment/Plan: DIAGNOSES: -arm abscesses, status post debridement evacuation * Ongoing antibiotics * Wound VAC in place to be changed in 3 2 days from now -acute sepsis, due to above, resolved -diabetic ketoacidosis, resolved -acute symptomatic hypoglycemia with symptoms mimicking his previous stroke, resolved -acute gastritis esophagitis symptoms, responding slowly to Carafate and Protonix -type 2 diabetes mellitus * Currently sugars remaining in reasonable range, no recent lows -chronic pain syndrome * Currently doing well on his usual once nightly dose of long-acting morphine -history of stroke -3 vessel coronary calcifications noted on CT scan PLANS: -continue current Carafate, Protonix, MB X, and follow his peptic symptoms closely, consider EGD if does not resolve -follow sugars closely with highest priority to avoid further hypoglycemia -continue current antibiotics and wound care per surgery and ID -given his diabetes and coronary calcifications, should likely be on statin, will check a lipid panel -increase activity as able SUBJECTIVE: Minimal pain in his arm at this time Still complains of heartburn and dyspepsia, slowly improving, eating well No fever symptoms OBJECTIVE Vitals reviewed: Stable without fever Exam: alert oriented skin warm dry color ok resps not labored lungs clear BSs heart regular abd soft nondistended nontender, bowel sounds present limbs right arm with wound VAC in place looks good with no cellulitis iv site ok Objective: Vital Signs Temp Pulse Resp BP Pulse Ox 36.6 C 72 18 108/72 94 01/05/18 11:38 01/05/18 11:38 01/05/18 11:38 01/05/18 11:38 01/05/18 11:38 Laboratory Results 01/05/18 06:00 01/05/18 06:00 01/04/18 01/05/18 01/06/18 06:59 06:59 06:59 Intake Total 830 Output Total 800 2465 Balance 30 -2465 PT 13.9 SEC (12.0-15.0) 12/25/17 23:30 INR 1.05 (0.83-1.16) 12/25/17 23:30 - Time Spent With Patient Time Spent with Patient: greater than 35 minutes Time Spent with Patient: Greater than 35 minutes spent on this patients care, greater than 50% of time spent counseling, educating, and coordinating care regarding the above mentioned plan. ICD10 Worksheet Patient Problems: Problems Problem Status Onset DKA (diabetic ketoacidoses) Acute Alcohol abuse Acute Alcohol dependence Acute Alcohol intoxication Acute Altered mental status Acute Atelectasis Acute Bronchitis Acute Diabetic foot ulcer Acute Hyperglycemia Acute Hyperglycemia due to type 2 diabetes mellitus Acute Leukocytosis Acute Osteomyelitis Acute Pneumonia Acute Right arm cellulitis Acute
--- NOTE | 2018-01-05 16:03 | ASMTCMCOM ---
CM Note CM Note Notes: Spoke with Yovany at [facility] to let him know patient has SSDI. 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 He has contacted his corporate office to see if we apply for regular LTC Medicaid and patient has SSDI, his expenses will be covered. He will let us know as soon as he hears from them. Per Chantel Coleman, Yovany had approved [facility] from a nursing perspective for admission. CM will follow. Date Signed: 01/05/2018 04:03 PM Electronically Signed By:Tali Barrientos LCSW
[2018-01-05] MEDS: morphINE SR 15 MG TAB PO SCH (22:30)
[2018-01-05] MEDS: MELATONIN 3 MG TAB PO SCH (22:30)
[2018-01-06] MEDS: LEVOTHYROXINE 150 MCG TAB PO SCH (06:26)
[2018-01-06] MEDS: TAMSULOSIN HCL 0.4 MG CAP PO SCH (09:38)
[2018-01-06] MEDS: GABAPENTIN 300 MG CAP PO SCH ×3 (09:38→21:04)
[2018-01-06] MEDS: PANTOPRAZOLE SODIUM 40 MG TAB PO SCH ×2 (09:38→21:04)
[2018-01-06] MEDS: ASPIRIN EC 81 MG TAB PO SCH (09:38)
[2018-01-06] MEDS: SENNOSIDES/DOCUSATE SODIUM TAB PO SCH ×2 (09:39→21:04)
[2018-01-06] MEDS: THIAMINE HCL 100 MG TAB PO SCH (09:39)
[2018-01-06] MEDS: amLODIPine BESYLATE 5 MG TAB PO SCH (09:39)
[2018-01-06] MEDS: ENOXAPARIN 40 MG/0.4 ML SYR SC SCH (09:39)
[2018-01-06] MEDS: SUCRALFATE 1 GM/10 ML UDCUP PO SCH ×4 (09:40→21:03)
[2018-01-06] MEDS: INSULIN GLARGINE 100 UNITS/ML UNIT SC SCH ×2 (09:42→22:23)
[2018-01-06] MEDS: INSULIN LISPRO 100 UNIT/ML SC SCH ×3 (09:43→17:18)
[2018-01-06] MEDS: oxyCODONE IR 5 MG TAB PO PRN ×3 (09:45→21:02)
[2018-01-06] MEDS: NICOTINE 21 MG/24 HR PATCH TD SCH (09:47)
[2018-01-06] MEDS: POLYETHYLENE GLYCOL 3350 17 GM PKT PO SCH (09:48)
--- NOTE | 2018-01-06 15:15 | SOAPPROG ---
SOAP Progress Note Assessment/Plan: Did not see today. Will see tomorrow and examine wound on RUE Will remove vac on Wednesday12/30/17 10:25 01/01/18 14:11 01/06/18 15:14 Objective: Vital Signs Temp Pulse Resp BP Pulse Ox 36.7 C 65 12 104/76 86 L 01/06/18 00:00 01/06/18 08:00 01/06/18 08:00 01/06/18 09:39 01/06/18 12:35 Laboratory Results 01/05/18 06:00 01/06/18 06:00 01/05/18 01/06/18 01/07/18 05:59 05:59 05:59 Intake Total 1600 Output Total 2465 1600 700 Balance -2465 0 -700 PT 13.9 SEC (12.0-15.0) 12/25/17 23:30 INR 1.05 (0.83-1.16) 12/25/17 23:30 ICD10 Worksheet Patient Problems: Problems Problem Status Onset DKA (diabetic ketoacidoses) Acute Alcohol abuse Acute Alcohol dependence Acute Alcohol intoxication Acute Altered mental status Acute Atelectasis Acute Bronchitis Acute Diabetic foot ulcer Acute Hyperglycemia Acute Hyperglycemia due to type 2 diabetes mellitus Acute Leukocytosis Acute Osteomyelitis Acute Pneumonia Acute Right arm cellulitis Acute
--- NOTE | 2018-01-06 16:23 | ASMTCMCOM ---
JOSÉ MIGUEL Note CM Note Notes: Francisco left msg for Yovany at [facility] regarding the status of Pt's admission there. Has been accepted by nursing, await business office decision. Await return call. Francisco made two new referrals today to [facility] and [facility]. Pt. does have SSI benefits. Carir met w/ Pt. in room. Pt. still trying to locate his prosthetic leg and now a "backpack" at "the old skating rink that is now a building on [address] by 05-18". Francisco has tried to check with long-time [facility] resident staff members at [facility] about what building this may be. Also called [facility] from [facility] to see if he knows. Tried to reach Ariela Caba, [facility]eless [employer] as well. Left messages. NARCISA/JOSÉ MIGUEL to follow. Date Signed: 01/06/2018 04:23 PM Electronically Signed By:Chantel Coleman LCSW
--- NOTE | 2018-01-06 17:13 | HOSPPROG ---
Hospitalist Progress Note Assessment/Plan: DIAGNOSES: -arm abscesses, status post debridement evacuation * Ongoing antibiotics * Wound VAC in place to be changed tomorrow -acute sepsis, due to above, resolved -diabetic ketoacidosis, resolved -acute symptomatic hypoglycemia with symptoms mimicking his previous stroke, resolved -acute gastritis esophagitis symptoms, responding well to Carafate and Protonix -episode of anginal sound in chest pain in the substernal area radiating to jaw and shoulder at time of admission; 3 vessel coronary calcifications noted on CT scan * No history of cardiac symptoms or coronary disease in the past -type 2 diabetes mellitus * Currently sugars remaining in reasonable range, no recent lows -chronic pain syndrome * Currently doing well on his usual once nightly dose of long-acting morphine -history of stroke PLANS: -continue current Carafate, Protonix, MB X, and follow his peptic symptoms closely, consider EGD if does not resolve -follow sugars closely with highest priority to avoid further hypoglycemia -continue current antibiotics and wound care per surgery and ID -given his diabetes and coronary calcifications, should be on statin -will plan on doing a Lexiscan myocardial perfusion in imaging study before discharge to further assess his chest pain and coronary disease; given the acute nature of the presenting symptom he would be a candidate for interventional reperfusion I had a very long conversation today with the patient regarding his angina in the need to assess that further, as well as his pain management wound management and chronic constipation. Notably he does have chronic constipation and complains that he has not had bowel movements here but is not wanting us to give him anything more for that. He does not have abdominal pain in his eating well SUBJECTIVE: Overall feels better today No recurrence of his angina syndrome No fever symptoms Eating well OBJECTIVE Vitals reviewed: Stable without fever Exam: alert oriented skin warm dry color ok resps not labored lungs clear BSs heart regular abd soft nondistended nontender, bowel sounds present limbs right arm with wound VAC in place looks good with no cellulitis iv site ok Laboratory data: Stable electrolytes and renal function Blood sugars remain in desired inpatient range here Objective: Vital Signs Temp Pulse Resp BP Pulse Ox 36.6 C 68 18 95/52 L 92 01/06/18 16:00 01/06/18 16:00 01/06/18 16:00 01/06/18 16:00 01/06/18 16:00 Laboratory Results 01/05/18 06:00 01/06/18 06:00 01/05/18 01/06/18 01/07/18 06:59 06:59 06:59 Intake Total 1600 500 Output Total 2465 1600 1300 Balance -2465 0 -800 PT 13.9 SEC (12.0-15.0) 12/25/17 23:30 INR 1.05 (0.83-1.16) 12/25/17 23:30 - Time Spent With Patient Time Spent with Patient: greater than 35 minutes Time Spent with Patient: Greater than 35 minutes spent on this patients care, greater than 50% of time spent counseling, educating, and coordinating care regarding the above mentioned plan. ICD10 Worksheet Patient Problems: Problems Problem Status Onset DKA (diabetic ketoacidoses) Acute Alcohol abuse Acute Alcohol dependence Acute Alcohol intoxication Acute Altered mental status Acute Atelectasis Acute Bronchitis Acute Diabetic foot ulcer Acute Hyperglycemia Acute Hyperglycemia due to type 2 diabetes mellitus Acute Leukocytosis Acute Osteomyelitis Acute Pneumonia Acute Right arm cellulitis Acute
[2018-01-06] MEDS ORDERED: MAGNESIUM CITRATE 300 ML BOTTLE PO ONE (17:15)
[2018-01-06] MEDS: MELATONIN 3 MG TAB PO SCH (21:04)
[2018-01-06] MEDS: morphINE SR 15 MG TAB PO SCH (21:04)
[2018-01-07] MEDS: oxyCODONE IR 5 MG TAB PO PRN ×4 (04:40→21:56)
[2018-01-07] MEDS: LEVOTHYROXINE 150 MCG TAB PO SCH (04:44)
--- NOTE | 2018-01-07 08:44 | SOAPPROG ---
SOAP Progress Note Assessment/Plan: Assessment/Plan: 57yo M well-known to our service for recent RUE necrotizing fasciitis, s/p split thickness skin graft of Right forearm wound and surgical debridement of proximal RUE abscess. Continue wound vac until Wednesday Changed Mepilex/Tegaderm dressing on Right thigh donor graft site. Changed HF Blue Ready/Allevyn dressing on Right proximal upper extremity abscess site. IV antibiotics per ID Appreciate hospitalists Seen c Dr. Foster S: No new complaints today. O: Sleeping. Arousable by voice and to discomfort of bandage changes. RESP: No increased work of breathing SKIN: R forearm wound vac in place to suction. No redness, swelling or other signs of infection. RUE abscess 2.5x2x0.6cm, healthy granulation tissue in base, dressings replaced Objective: Vital Signs Temp Pulse Resp BP Pulse Ox 36.4 C 72 18 120/79 93 01/07/18 07:19 01/07/18 07:19 01/07/18 07:19 01/07/18 07:19 01/07/18 07:19 Laboratory Results 01/05/18 06:00 01/06/18 06:00 01/06/18 01/07/18 01/08/18 05:59 05:59 05:59 Intake Total 1600 900 Output Total 1600 2750 Balance 0 -1850 PT 13.9 SEC (12.0-15.0) 12/25/17 23:30 INR 1.05 (0.83-1.16) 12/25/17 23:30 ICD10 Worksheet Patient Problems: Problems Problem Status Onset DKA (diabetic ketoacidoses) Acute Alcohol abuse Acute Alcohol dependence Acute Alcohol intoxication Acute Altered mental status Acute Atelectasis Acute Bronchitis Acute Diabetic foot ulcer Acute Hyperglycemia Acute Hyperglycemia due to type 2 diabetes mellitus Acute Leukocytosis Acute Osteomyelitis Acute Pneumonia Acute Right arm cellulitis Acute
[2018-01-07] MEDS: THIAMINE HCL 100 MG TAB PO SCH (09:10)
[2018-01-07] MEDS: SENNOSIDES/DOCUSATE SODIUM TAB PO SCH ×2 (09:11→21:55)
[2018-01-07] MEDS: amLODIPine BESYLATE 5 MG TAB PO SCH (09:11)
[2018-01-07] MEDS: TAMSULOSIN HCL 0.4 MG CAP PO SCH (09:11)
[2018-01-07] MEDS: GABAPENTIN 300 MG CAP PO SCH ×3 (09:11→21:54)
[2018-01-07] MEDS: ASPIRIN EC 81 MG TAB PO SCH (09:11)
[2018-01-07] MEDS: PANTOPRAZOLE SODIUM 40 MG TAB PO SCH ×2 (09:11→21:55)
[2018-01-07] MEDS: POLYETHYLENE GLYCOL 3350 17 GM PKT PO SCH (09:12)
[2018-01-07] MEDS: NICOTINE 21 MG/24 HR PATCH TD SCH (09:12)
[2018-01-07] MEDS: INSULIN GLARGINE 100 UNITS/ML UNIT SC SCH ×2 (09:13→21:56)
[2018-01-07] MEDS: ENOXAPARIN 40 MG/0.4 ML SYR SC SCH (09:14)
[2018-01-07] MEDS: SUCRALFATE 1 GM/10 ML UDCUP PO SCH ×4 (11:33→21:55)
[2018-01-07] MEDS: INSULIN LISPRO 100 UNIT/ML SC SCH ×3 (11:33→17:54)
--- NOTE | 2018-01-07 18:17 | HOSPPROG ---
Hospitalist Progress Note Assessment/Plan: DIAGNOSES: -arm abscesses, status post debridement evacuation * Has completed antibiotics * Wound VAC now off, ongoing wound care -acute sepsis, due to above, resolved -diabetic ketoacidosis, resolved -acute symptomatic hypoglycemia with symptoms mimicking his previous stroke, resolved -acute gastritis esophagitis symptoms, responding well to Carafate and Protonix -episode of anginal sound in chest pain in the substernal area radiating to jaw and shoulder at time of admission; 3 vessel coronary calcifications noted on CT scan * No history of cardiac symptoms or coronary disease in the past -type 2 diabetes mellitus * Currently sugars remaining in reasonable range, no recent lows -chronic pain syndrome * Currently doing well on his usual once nightly dose of long-acting morphine -history of stroke PLANS: -continue current wound care per surgery and ID -given his diabetes and coronary calcifications, should be on statin -will plan on doing a Lexiscan myocardial perfusion in imaging study in 3 days on Wednesday to further assess his chest pain and coronary disease; given the acute nature of the presenting symptom he would be a candidate for interventional reperfusion -continue current Carafate, Protonix, MBX, and follow his peptic symptoms closely, consider EGD if does not resolve -follow sugars closely with highest priority to avoid further hypoglycemia I had a very long conversation today with the patient regarding his angina in the need to assess that further, as well as his pain management wound management and chronic constipation. Notably he does have chronic constipation and complains that he has not had bowel movements here but is not wanting us to give him anything more for that. He does not have abdominal pain in his eating well SUBJECTIVE: Feels yet better again today with less pain in his arm. Not using as much pain medicine No recurrent anginal symptoms or stroke-like symptoms OBJECTIVE Vitals reviewed: Stable without fever Exam: alert oriented skin warm dry color ok resps not labored lungs clear BSs heart regular abd soft nondistended nontender, bowel sounds present limbs right arm with wound VAC in place looks good with no cellulitis iv site ok Laboratory data: Blood sugars remain in desired inpatient range here Objective: Vital Signs Temp Pulse Resp BP Pulse Ox 36.6 C 73 18 111/80 97 01/07/18 15:56 01/07/18 15:56 01/07/18 15:56 01/07/18 15:56 01/07/18 15:56 Laboratory Results 01/05/18 06:00 01/06/18 06:00 01/06/18 01/07/18 01/08/18 06:59 06:59 06:59 Intake Total 8651 369 2653 Output Total 1600 2750 Balance 0 -1850 1125 PT 13.9 SEC (12.0-15.0) 12/25/17 23:30 INR 1.05 (0.83-1.16) 12/25/17 23:30 ICD10 Worksheet Patient Problems: Problems Problem Status Onset DKA (diabetic ketoacidoses) Acute Alcohol abuse Acute Alcohol dependence Acute Alcohol intoxication Acute Altered mental status Acute Atelectasis Acute Bronchitis Acute Diabetic foot ulcer Acute Hyperglycemia Acute Hyperglycemia due to type 2 diabetes mellitus Acute Leukocytosis Acute Osteomyelitis Acute Pneumonia Acute Right arm cellulitis Acute
--- NOTE | 2018-01-07 18:25 | ASMTCMCOM ---
CM Note CM Note Notes: Today Pt. officially denied admission to [facility]. Please see [facility] for details. [facility] also declines due to Pt's past behavior there. [facility] was sent a new referral today and declines. Pt. will be hard to place going forward. [facility] was successful today in determining that Pt's prosthetic leg and belongings were indeed at the homeless [facility] office. Karolina Bess in was able to go and pharmacy picking technician items at [facility] office. Pt. was very grateful. Pt's electric wheelchair is in the custody of [facility] . Please see that electric wheelchair gets to Pt's placement once one is found. CM to follow. Date Signed: 01/07/2018 06:25 PM Electronically Signed By:Chantel Coleman LCSW
[2018-01-07] MEDS: morphINE SR 15 MG TAB PO SCH (21:54)
[2018-01-07] MEDS: MELATONIN 3 MG TAB PO SCH (21:55)
[2018-01-08] MEDS: oxyCODONE IR 5 MG TAB PO PRN ×5 (05:19→22:38)
[2018-01-08] MEDS: LEVOTHYROXINE 150 MCG TAB PO SCH (05:19)
--- NOTE | 2018-01-08 08:50 | SOAPPROG ---
SOAP Progress Note Assessment/Plan: Assessment/Plan: 58yo M s/p STSG to RUE, I&D RUColton abscess - VAC came off yesterday, most of graft hsa taken. Area now covered with adaptiq , gauze and wrapped with CONCHITA - took bandage down today, site looks good. Re-wrapped. There has been minimal saturating of gauze, will need to monitor - no showering over the weekend, likely ok next wee - ok for dc, but appears he is going to placement issue given past behavior at multiple facilities 01/08/18 08:48 Subjective: fells well, happy to have his leg back Objective: Vital Signs Temp Pulse Resp BP Pulse Ox 36.2 C 67 18 108/70 93 01/08/18 08:00 01/08/18 08:00 01/08/18 08:00 01/08/18 08:00 01/08/18 08:00 Laboratory Results 01/05/18 06:00 01/06/18 06:00 01/07/18 01/08/18 01/09/18 05:59 05:59 05:59 Intake Total 900 1125 Output Total 2750 Balance -1850 1125 PT 13.9 SEC (12.0-15.0) 12/25/17 23:30 INR 1.05 (0.83-1.16) 12/25/17 23:30 ICD10 Worksheet Patient Problems: Problems Problem Status Onset DKA (diabetic ketoacidoses) Acute Alcohol abuse Acute Alcohol dependence Acute Alcohol intoxication Acute Altered mental status Acute Atelectasis Acute Bronchitis Acute Diabetic foot ulcer Acute Hyperglycemia Acute Hyperglycemia due to type 2 diabetes mellitus Acute Leukocytosis Acute Osteomyelitis Acute Pneumonia Acute Right arm cellulitis Acute
[2018-01-08] MEDS: INSULIN LISPRO 100 UNIT/ML SC SCH ×2 (09:57→16:46)
[2018-01-08] MEDS: INSULIN GLARGINE 100 UNITS/ML UNIT SC SCH ×3 (09:57→22:20)
[2018-01-08] MEDS: ENOXAPARIN 40 MG/0.4 ML SYR SC SCH (10:00)
[2018-01-08] MEDS: NICOTINE 21 MG/24 HR PATCH TD SCH (10:01)
[2018-01-08] MEDS: SUCRALFATE 1 GM/10 ML UDCUP PO SCH ×4 (10:03→22:20)
[2018-01-08] MEDS: THIAMINE HCL 100 MG TAB PO SCH (10:08)
[2018-01-08] MEDS: SENNOSIDES/DOCUSATE SODIUM TAB PO SCH ×2 (10:08→22:20)
[2018-01-08] MEDS: GABAPENTIN 300 MG CAP PO SCH ×3 (10:09→22:20)
[2018-01-08] MEDS: ASPIRIN EC 81 MG TAB PO SCH (10:09)
[2018-01-08] MEDS: amLODIPine BESYLATE 5 MG TAB PO SCH (10:09)
[2018-01-08] MEDS: TAMSULOSIN HCL 0.4 MG CAP PO SCH (10:11)
[2018-01-08] MEDS: PANTOPRAZOLE SODIUM 40 MG TAB PO SCH ×2 (10:11→22:20)
[2018-01-08] MEDS: POLYETHYLENE GLYCOL 3350 17 GM PKT PO SCH (10:12)
--- NOTE | 2018-01-08 10:45 | HOSPPROG ---
Hospitalist Progress Note Assessment/Plan: DIAGNOSES: -arm abscesses, status post debridement evacuation * Has completed antibiotics * Wound VAC now off, ongoing wound care -acute sepsis, due to above, resolved -diabetic ketoacidosis, resolved -acute symptomatic hypoglycemia with symptoms mimicking his previous stroke, resolved -acute gastritis esophagitis symptoms, responding well to Carafate and Protonix -episode of anginal sound in chest pain in the substernal area radiating to jaw and shoulder at time of admission; 3 vessel coronary calcifications noted on CT scan * No history of cardiac symptoms or coronary disease in the past -type 2 diabetes mellitus * Currently sugars remaining in reasonable range, no recent lows -chronic pain syndrome * Currently doing well on his usual once nightly dose of long-acting morphine -history of stroke PLANS: -continue current wound care per surgery and ID -given his diabetes and coronary calcifications, should be on statin at discharge -will plan on doing a Lexiscan myocardial perfusion in imaging study in 2 days on Wednesday to further assess his chest pain and coronary disease; given the acute nature of the presenting symptom he would be a candidate for interventional reperfusion -continue current Carafate, Protonix, MBX, and follow his peptic symptoms closely, consider EGD if does not resolve -follow sugars closely with highest priority to avoid further hypoglycemia SUBJECTIVE: No pain in arm now, a bit itchy Not using as much pain medicine No recurrent anginal symptoms or stroke-like symptoms OBJECTIVE Vitals reviewed: Stable without fever Exam: alert oriented skin warm dry color ok resps not labored lungs clear BSs heart regular abd soft nondistended nontender, bowel sounds present limbs right arm wounds look good wound VAC off iv site ok Laboratory data: Blood sugars remain in desired inpatient range here Objective: Vital Signs Temp Pulse Resp BP Pulse Ox 36.2 C 67 18 100/69 93 01/08/18 08:00 01/08/18 08:00 01/08/18 08:00 01/08/18 10:09 01/08/18 08:00 Laboratory Results 01/05/18 06:00 01/06/18 06:00 01/07/18 01/08/18 01/09/18 06:59 06:59 06:59 Intake Total 900 1125 Output Total 2750 Balance -1850 1125 PT 13.9 SEC (12.0-15.0) 12/25/17 23:30 INR 1.05 (0.83-1.16) 12/25/17 23:30 ICD10 Worksheet Patient Problems: Problems Problem Status Onset DKA (diabetic ketoacidoses) Acute Alcohol abuse Acute Alcohol dependence Acute Alcohol intoxication Acute Altered mental status Acute Atelectasis Acute Bronchitis Acute Diabetic foot ulcer Acute Hyperglycemia Acute Hyperglycemia due to type 2 diabetes mellitus Acute Leukocytosis Acute Osteomyelitis Acute Pneumonia Acute Right arm cellulitis Acute
[2018-01-08] MEDS: morphINE SR 15 MG TAB PO SCH (22:20)
[2018-01-08] MEDS: MELATONIN 3 MG TAB PO SCH (22:20)
[2018-01-09] MEDS: oxyCODONE IR 5 MG TAB PO PRN ×5 (03:30→22:12)
[2018-01-09] MEDS: LEVOTHYROXINE 150 MCG TAB PO SCH (05:52)
[2018-01-09] MEDS: SUCRALFATE 1 GM/10 ML UDCUP PO SCH ×4 (08:10→20:32)
[2018-01-09] MEDS: INSULIN LISPRO 100 UNIT/ML SC SCH ×3 (08:18→18:39)
[2018-01-09] MEDS: SENNOSIDES/DOCUSATE SODIUM TAB PO SCH ×2 (09:25→20:33)
[2018-01-09] MEDS: GABAPENTIN 300 MG CAP PO SCH ×3 (09:25→20:32)
[2018-01-09] MEDS: ASPIRIN EC 81 MG TAB PO SCH (09:25)
[2018-01-09] MEDS: TAMSULOSIN HCL 0.4 MG CAP PO SCH (09:26)
[2018-01-09] MEDS: PANTOPRAZOLE SODIUM 40 MG TAB PO SCH ×2 (09:26→20:34)
[2018-01-09] MEDS: THIAMINE HCL 100 MG TAB PO SCH (09:26)
[2018-01-09] MEDS: ENOXAPARIN 40 MG/0.4 ML SYR SC SCH (09:27)
[2018-01-09] MEDS: NICOTINE 21 MG/24 HR PATCH TD SCH (09:27)
[2018-01-09] MEDS: POLYETHYLENE GLYCOL 3350 17 GM PKT PO SCH (09:28)
[2018-01-09] MEDS: INSULIN GLARGINE 100 UNITS/ML UNIT SC SCH ×2 (09:37→20:33)
[2018-01-09] MEDS: amLODIPine BESYLATE 5 MG TAB PO SCH (10:40)
--- NOTE | 2018-01-09 11:14 | SOAPPROG ---
SOAP Progress Note Assessment/Plan: Assessment/Plan: 58yo M s/p STSG to RUE, I&D RUE abscess -I took down the dressing. There is good take to most of the graft - Re dressed with Adaptiq, gauze and wrapped with Kerlix and CONCHITA 01/08/18 08:48 01/09/18 11:13 Subjective: grumpy Objective: Vital Signs Temp Pulse Resp BP Pulse Ox 36.8 C 74 16 91/59 L 94 01/09/18 08:00 01/09/18 08:00 01/09/18 08:00 01/09/18 09:46 01/09/18 08:00 Laboratory Results 01/05/18 06:00 01/06/18 06:00 01/08/18 01/09/18 01/10/18 05:59 05:59 05:59 Intake Total 1125 250 Output Total 1575 Balance 1125 -1325 PT 13.9 SEC (12.0-15.0) 12/25/17 23:30 INR 1.05 (0.83-1.16) 12/25/17 23:30 ICD10 Worksheet Patient Problems: Problems Problem Status Onset DKA (diabetic ketoacidoses) Acute Alcohol abuse Acute Alcohol dependence Acute Alcohol intoxication Acute Altered mental status Acute Atelectasis Acute Bronchitis Acute Diabetic foot ulcer Acute Hyperglycemia Acute Hyperglycemia due to type 2 diabetes mellitus Acute Leukocytosis Acute Osteomyelitis Acute Pneumonia Acute Right arm cellulitis Acute
--- NOTE | 2018-01-09 11:42 | ASMTCMCOM ---
CM Note CM Note Notes: Chart reviewed. Complex care patient whom is difficult to place. Per hospital medicine patient to have Lexiscan tomorrow for diagnostics .CM to follow. Date Signed: 01/09/2018 11:41 AM Electronically Signed By:Danae Haley RN
--- NOTE | 2018-01-09 18:08 | HOSPPROG ---
Hospitalist Progress Note Assessment/Plan: DIAGNOSES: -new onset edema of right upper extremity from just below shoulder down to hand today, mild discomfort, no redness or heat to suggest infection * Suggestive of possible upper extremity DVT will need to do study for diagnosis -Right arm abscesses, status post debridement evacuation/skin graft * Has completed antibiotics * Wound VAC now off, ongoing wound care -acute sepsis, due to above, resolved -diabetic ketoacidosis, resolved -acute symptomatic hypoglycemia with symptoms mimicking his previous stroke, resolved -acute gastritis esophagitis symptoms, responding well to Carafate and Protonix -episode of anginal sound in chest pain in the substernal area radiating to jaw and shoulder at time of admission; 3 vessel coronary calcifications noted on CT scan * No history of cardiac symptoms or coronary disease in the past -type 2 diabetes mellitus * Currently sugars remaining in reasonable range, no recent lows -chronic pain syndrome * Currently doing well on his usual once nightly dose of long-acting morphine -history of stroke PLANS: -Doppler ultrasound of right upper extremity now to rule out DVT -continue current wound care per surgery and ID -given his diabetes and coronary calcifications, should be on statin at discharge -will plan on doing a Lexiscan myocardial perfusion in imaging study in near future to further assess his chest pain and coronary disease; given the acute nature of the presenting symptom he would be a candidate for interventional reperfusion; will delay ordering that right now is were ordering ultrasound of the right arm to look for DVT tonight -continue current Carafate, Protonix, MBX, and follow his peptic symptoms closely, consider EGD if does not resolve -follow sugars closely with highest priority to avoid further hypoglycemia DISPOSITION: His inability to self care for his wounds, his mobility issues, his multiple wounds, and his complex medical issues make discharge difficult for him. Will need to keep looking at his situation and try and find a way to get in the care he needs out of the hospital once we get to the point with the wounds are healed well enough that it is safe. SUBJECTIVE: Mild discomfort in right upper extremity today diffusely but not at his wounds, no specific wound trouble that he notices No recurrent anginal symptoms or stroke-like symptoms OBJECTIVE Vitals reviewed: Stable without fever Exam: alert oriented skin warm dry color ok resps not labored lungs clear BSs heart regular abd soft nondistended nontender, bowel sounds present limbs right arm is diffusely edematous from just below the shoulder down to the hand without discoloration or tenderness or temperature change, otherwise wounds look good wound VAC off iv site ok Laboratory data: Blood sugars remain in desired inpatient range last few days Objective: Vital Signs Temp Pulse Resp BP Pulse Ox 36.2 C 66 18 94/59 L 93 01/09/18 16:00 01/09/18 16:00 01/09/18 16:00 01/09/18 16:00 01/09/18 16:00 Laboratory Results 01/05/18 06:00 01/06/18 06:00 01/08/18 01/09/18 01/10/18 06:59 06:59 06:59 Intake Total 1125 250 Output Total 1575 600 Balance 1125 -1325 -600 PT 13.9 SEC (12.0-15.0) 12/25/17 23:30 INR 1.05 (0.83-1.16) 12/25/17 23:30 ICD10 Worksheet Patient Problems: Problems Problem Status Onset DKA (diabetic ketoacidoses) Acute Alcohol abuse Acute Alcohol dependence Acute Alcohol intoxication Acute Altered mental status Acute Atelectasis Acute Bronchitis Acute Diabetic foot ulcer Acute Hyperglycemia Acute Hyperglycemia due to type 2 diabetes mellitus Acute Leukocytosis Acute Osteomyelitis Acute Pneumonia Acute Right arm cellulitis Acute
[2018-01-09] MEDS: MELATONIN 3 MG TAB PO SCH (20:35)
[2018-01-09] MEDS: morphINE SR 15 MG TAB PO SCH (20:35)
[2018-01-10] MEDS: oxyCODONE IR 5 MG TAB PO PRN ×6 (02:12→22:53)
[2018-01-10 04:50] LABS: PLATELET COUNT 246 10^3/uL (150-400)
[2018-01-10] MEDS: LEVOTHYROXINE 150 MCG TAB PO SCH (06:20)
[2018-01-10] MEDS: SUCRALFATE 1 GM/10 ML UDCUP PO SCH ×4 (09:46→21:30)
[2018-01-10] MEDS: GABAPENTIN 300 MG CAP PO SCH ×3 (09:47→21:42)
[2018-01-10] MEDS: POLYETHYLENE GLYCOL 3350 17 GM PKT PO SCH (09:47)
[2018-01-10] MEDS: NICOTINE 21 MG/24 HR PATCH TD SCH (09:47)
[2018-01-10] MEDS: SENNOSIDES/DOCUSATE SODIUM TAB PO SCH ×2 (09:49→21:30)
[2018-01-10] MEDS: TAMSULOSIN HCL 0.4 MG CAP PO SCH (09:49)
[2018-01-10] MEDS: PANTOPRAZOLE SODIUM 40 MG TAB PO SCH ×2 (09:50→21:30)
[2018-01-10] MEDS: ASPIRIN EC 81 MG TAB PO SCH (09:50)
[2018-01-10] MEDS: THIAMINE HCL 100 MG TAB PO SCH (09:50)
[2018-01-10] MEDS: ENOXAPARIN 40 MG/0.4 ML SYR SC SCH (09:53)
[2018-01-10] MEDS: amLODIPine BESYLATE 5 MG TAB PO SCH (09:58)
[2018-01-10] MEDS: INSULIN LISPRO 100 UNIT/ML SC SCH ×3 (10:58→19:03)
[2018-01-10] MEDS: INSULIN GLARGINE 100 UNITS/ML UNIT SC SCH ×3 (10:58→21:34)
--- NOTE | 2018-01-10 17:10 | SOAPPROG ---
SOAP Progress Note Assessment/Plan: Assessment/Plan: 57yo M well-known to our service for recent RUE necrotizing fasciitis, s/p split thickness skin graft of Right forearm wound and surgical debridement of proximal RUE abscess. Wound vac discontinued - adaptic touch, 4x4s and kerlix. Change Mepilex/Tegaderm dressing on Right thigh donor graft site. Change HF Blue Ready/Allevyn dressing on Right proximal upper extremity abscess site. IV antibiotics per ID Appreciate hospitalists Dispo: ok to DC from surgery standpoint. Will need vic removed in appx 1 week. S: Working with PT and he does not want me to examine him now. Will return to evaluate wounds tomorrow O: Sitting up in bed working with PT on UE exercises RESP: No increased work of breathing SKIN: Dressings in place Objective: Vital Signs Temp Pulse Resp BP Pulse Ox 36.6 C 73 20 100/68 93 01/10/18 16:00 01/10/18 16:00 01/10/18 16:00 01/10/18 16:30 01/10/18 16:30 Laboratory Results 01/10/18 04:35 01/10/18 04:35 01/09/18 01/10/18 01/11/18 05:59 05:59 05:59 Intake Total 250 Output Total 1575 1875 Balance -1325 -1875 PT 13.9 SEC (12.0-15.0) 12/25/17 23:30 INR 1.05 (0.83-1.16) 12/25/17 23:30 ICD10 Worksheet Patient Problems: Problems Problem Status Onset DKA (diabetic ketoacidoses) Acute Alcohol abuse Acute Alcohol dependence Acute Alcohol intoxication Acute Altered mental status Acute Atelectasis Acute Bronchitis Acute Diabetic foot ulcer Acute Hyperglycemia Acute Hyperglycemia due to type 2 diabetes mellitus Acute Leukocytosis Acute Osteomyelitis Acute Pneumonia Acute Right arm cellulitis Acute
--- NOTE | 2018-01-10 20:09 | HOSPPROG ---
Hospitalist Progress Note Assessment/Plan: Assessment: 57 yo M p/w acute DKA and severe sepsis in the setting of RUE necrotizing abscess Plan: # possible gastritis and reflux. Improved s/p carafate and ppi bid, continue - H. pylori breath neg # RUE necrotizing abscess s/p I&D w/ MRSA on wound cx - US w/o DVT - d/w [facility] gen surg provider, she reports wound vac off, ongoing wound care, requiring SNF for asst - 10 total days Abx (4 days Vanco, 6 days Doxy) # Chronic pain w/ continuous opiate dependency. Patient reports better pain relief on current Rx - cont PRN oxy to 10-30mg PRN, cont MS cont 15 HS siria, adjusted gabapentin to 900 tid and gauge effect - attempt to wean off of IV morphine # Acute atelectasis. Hypoxia, cont IS # hx CVA - had revisitation in setting of hypoglycemia - started asa - LDL 52 - ICA stenosis 65-75% - non-op per Dr Ng # DM2 - FBG 68, reduced lantus to 20/20 # staph epi in BCx - suspect contaminant # constipation - ongoing bowel protocol # DKA - acute, resolved # metabolic acidosis - acute, 2/2 DKA and lactic acid, hypovolemia, resolved # severe sepsis - POA, evidenced by autonomic dysregulation in setting of infxn (abscess), w/ end-organ failure (lactic acidosis) w/ leukocytosis/tachypnea/ tachycardia # acute chest pain - new problem to this provider, further w/u indicated. POA, in setting of infxn stressor, high risk of angina - getting nuc stress in AM diet. ADA ppx. High risk, lovenox 40 code. full dispo. ADD uncertain, d/w case mgmt and continue to explore SNF options Subjective: patient w/o chest pain today Objective: Vital Signs Temp Pulse Resp BP Pulse Ox 36.6 C 73 20 96/57 L 93 01/10/18 16:00 01/10/18 16:00 01/10/18 16:00 01/10/18 18:34 01/10/18 16:30 Laboratory Results 01/10/18 04:35 01/10/18 04:35 01/09/18 01/10/18 01/11/18 05:59 05:59 05:59 Intake Total 250 Output Total 1575 1875 Balance -1325 -1875 PT 13.9 SEC (12.0-15.0) 12/25/17 23:30 INR 1.05 (0.83-1.16) 12/25/17 23:30 - Physical Exam Constitutional: no apparent distress, chronically ill appearing, obese, uncomfortable Cardiovascular: regular rate and rhythym, no murmur, rub, or gallop, No edema Respiratory: no respiratory distress, no rales or rhonchi, clear to auscultation Gastrointestinal: normoactive bowel sounds, soft, non-tender abdomen, no palpable masses Skin: other (many small ulcerations, w/o significant erythema surrounding) Musculoskeletal: full muscle strength (R BKA), no muscle tenderness, normal joint ROM Neurologic: AAOx3, sensation intact bilaterally, No weakness Psychiatric: not anxious, not encephalopathic, thought process linear, flat affect, No agitated ICD10 Worksheet Patient Problems: Problems Problem Status Onset DKA (diabetic ketoacidoses) Acute Alcohol abuse Acute Alcohol dependence Acute Alcohol intoxication Acute Altered mental status Acute Atelectasis Acute Bronchitis Acute Diabetic foot ulcer Acute Hyperglycemia Acute Hyperglycemia due to type 2 diabetes mellitus Acute Leukocytosis Acute Osteomyelitis Acute Pneumonia Acute Right arm cellulitis Acute
[2018-01-10] MEDS: MELATONIN 3 MG TAB PO SCH (21:28)
[2018-01-10] MEDS: morphINE SR 15 MG TAB PO SCH (21:30)
[2018-01-11] MEDS: oxyCODONE IR 5 MG TAB PO PRN ×4 (03:06→21:24)
[2018-01-11] MEDS: LEVOTHYROXINE 150 MCG TAB PO SCH (05:39)
[2018-01-11] MEDS: INSULIN LISPRO 100 UNIT/ML SC SCH ×4 (08:58→18:00)
[2018-01-11] MEDS: SUCRALFATE 1 GM/10 ML UDCUP PO SCH ×4 (09:45→20:57)
[2018-01-11] MEDS: PANTOPRAZOLE SODIUM 40 MG TAB PO SCH ×2 (09:46→20:55)
[2018-01-11] MEDS: TAMSULOSIN HCL 0.4 MG CAP PO SCH (09:46)
[2018-01-11] MEDS: SENNOSIDES/DOCUSATE SODIUM TAB PO SCH ×2 (09:46→20:56)
[2018-01-11] MEDS: ASPIRIN EC 81 MG TAB PO SCH (09:46)
[2018-01-11] MEDS: THIAMINE HCL 100 MG TAB PO SCH (09:46)
[2018-01-11] MEDS: POLYETHYLENE GLYCOL 3350 17 GM PKT PO SCH (09:47)
[2018-01-11] MEDS: GABAPENTIN 300 MG CAP PO SCH ×3 (09:47→20:57)
[2018-01-11] MEDS: ENOXAPARIN 40 MG/0.4 ML SYR SC SCH (09:49)
[2018-01-11] MEDS: amLODIPine BESYLATE 5 MG TAB PO SCH (09:49)
[2018-01-11] MEDS: INSULIN GLARGINE 100 UNITS/ML UNIT SC SCH ×2 (09:50→20:58)
--- NOTE | 2018-01-11 09:54 | CPEKG ---
Heart Rate: 76 RR Interval: 789 P-R Interval: 184 QRSD Interval: 84 QT Interval: 396 QTC Interval: 446 P [place]: 64 QRS [place]: 12 T Wave [place]: 90 EKG Severity - NORMAL ECG - EKG Impression: SINUS RHYTHM EKG Impression: NON SPECIFIC ST/T WAVE CHANGES DIFFUSELY Electronically Signed By: Tobias Clifton 12-Jan-2018 12:15:52
--- NOTE | 2018-01-11 12:08 | ASMTCMCOM ---
CM Note CM Note Notes: Patient has been declined by numerous SNF's due to patient not observing smoking rules, substance abuse,exposing himself to residents at the homeless skilled nursing, no disability, limited Medicaid with his [facility] Medicaid, and his LTC Medicaid pending. Other solutions may have to be considered. CM will follow. Date Signed: 01/11/2018 12:07 PM Electronically Signed By:Tali Barrientos LCSW
[2018-01-11] MEDS: NICOTINE 21 MG/24 HR PATCH TD SCH (15:47)
--- NOTE | 2018-01-11 17:55 | SOAPPROG ---
SOAP Progress Note Assessment/Plan: Assessment/Plan: 57yo M well-known to our service for recent RUE necrotizing fasciitis, s/p split thickness skin graft of Right forearm wound and surgical debridement of proximal RUE abscess. R forearm skin graft - wound gel and allevyn. will plan to remove vic prior to DC R thigh donor site - Mepilex transfer and tegaderm R upper arm abscess - HFB ready and allevyn q3d IV antibiotics per ID Appreciate hospitalists Dispo: ok to DC from surgery standpoint. Seen c Dr. Foster. S: No complaints. Feeling well O: Sleeping but easily arousable RESP: No increased work of breathing SKIN: R forearm skin graft with >95% take. [place] intact. Edges dry. Applied wound gel and allevyn. Other dressings in place Objective: Vital Signs Temp Pulse Resp BP Pulse Ox 36.8 C 64 16 97/59 L 93 01/11/18 15:17 01/11/18 15:17 01/11/18 15:17 01/11/18 15:17 01/11/18 15:17 Laboratory Results 01/10/18 04:35 01/10/18 04:35 01/10/18 01/11/18 01/12/18 05:59 05:59 05:59 Output Total 8159 651 3578 Balance -1875 -550 -1000 PT 13.9 SEC (12.0-15.0) 12/25/17 23:30 INR 1.05 (0.83-1.16) 12/25/17 23:30 ICD10 Worksheet Patient Problems: Problems Problem Status Onset DKA (diabetic ketoacidoses) Acute Alcohol abuse Acute Alcohol dependence Acute Alcohol intoxication Acute Altered mental status Acute Atelectasis Acute Bronchitis Acute Diabetic foot ulcer Acute Hyperglycemia Acute Hyperglycemia due to type 2 diabetes mellitus Acute Leukocytosis Acute Osteomyelitis Acute Pneumonia Acute Right arm cellulitis Acute
--- NOTE | 2018-01-11 18:38 | HOSPPROG ---
Hospitalist Progress Note Assessment/Plan: Assessment: 57 yo M p/w acute encephalopathy and DKA and severe sepsis in the setting of RUE necrotizing abscess Plan: # acute encephalopathy. evidenced by global brain dysfunction characterized as disorientation, confusion, documented in his initial presentation notes, all of which were an acute change from his baseline and likely secondary to the toxic effects of sepsis/infxn as well as metabolic effects of acidosis - resolved, patient is now at baseline, and he has not had any behavioral incidents while under my care - he is currently cooperative, full participatory, and has not acted aggressively or impulsively while under my care # possible gastritis and reflux. Improved s/p carafate and ppi bid, continue - H. pylori breath neg # RUE necrotizing abscess s/p I&D w/ MRSA on wound cx - US w/o DVT - wound vac off, ongoing wound care, requiring SNF for asst - received 10 total days Abx (4 days Vanco, 6 days Doxy) # Chronic pain w/ continuous opiate dependency. Patient reports better pain relief on current Rx - cont PRN oxy to 10-30mg PRN, cont MS cont 15 HS siria, adjusted gabapentin to 900 tid and gauge effect - pain mgmt currently stabilized # Acute atelectasis. Hypoxia, cont IS # hx CVA - had revisitation in setting of hypoglycemia, received neuro consultation - started asa - LDL 52 - ICA stenosis 65-75% - non-op per Dr Ng # DM2 - cont lantus 20/20 # staph epi in BCx - suspect contaminant # constipation - ongoing bowel protocol # DKA - acute, resolved # metabolic acidosis - acute, 2/2 DKA and lactic acid, hypovolemia, resolved # severe sepsis - POA, evidenced by autonomic dysregulation in setting of infxn (abscess), w/ end-organ failure (lactic acidosis, acute encephalopathy) w/ leukocytosis/tachypnea/tachycardia # acute chest pain - new problem to this provider, further w/u indicated. POA, in setting of infxn stressor, high risk of angina - getting nuc stress in AM # tobacco use disorder - patient has not attempted to smoke while under my care , nicotine patch seems to be keeping patient calm diet. ADA ppx. High risk, lovenox 40 code. full dispo. ADD uncertain, d/w case mgmt and continue to explore SNF options, patient 's behavior has been stable and is appropriate for SNF Subjective: patient reports he is moving bowels Objective: Vital Signs Temp Pulse Resp BP Pulse Ox 36.8 C 64 16 97/59 L 93 01/11/18 15:17 01/11/18 15:17 01/11/18 15:17 01/11/18 15:17 01/11/18 15:17 Laboratory Results 01/10/18 04:35 01/10/18 04:35 01/10/18 01/11/18 01/12/18 05:59 05:59 05:59 Output Total 1951 394 4072 Balance -1875 -550 -1000 PT 13.9 SEC (12.0-15.0) 12/25/17 23:30 INR 1.05 (0.83-1.16) 12/25/17 23:30 - Physical Exam Constitutional: no apparent distress, not in pain, chronically ill appearing, obese, No uncomfortable Cardiovascular: No systolic murmur, No irregularly irregular, No tachycardia, No edema Respiratory: inspiratory crackles (bialt bases), No reduced air movement, No expiratory wheeze, No bronchial breath sounds, No respiratory distress Gastrointestinal: normoactive bowel sounds, soft, non-tender abdomen, no palpable masses, distension (moderately) Skin: other (many bandaged small ulcerations bilat LE, RUE wound bandaged) Musculoskeletal: other (R BKA) Neurologic: AAOx3, sensation intact bilaterally, No weakness, No facial droop Psychiatric: not anxious, not encephalopathic, thought process linear, flat affect, No agitated ICD10 Worksheet Patient Problems: Problems Problem Status Onset DKA (diabetic ketoacidoses) Acute Alcohol abuse Acute Alcohol dependence Acute Alcohol intoxication Acute Altered mental status Acute Atelectasis Acute Bronchitis Acute Diabetic foot ulcer Acute Hyperglycemia Acute Hyperglycemia due to type 2 diabetes mellitus Acute Leukocytosis Acute Osteomyelitis Acute Pneumonia Acute Right arm cellulitis Acute
[2018-01-11] MEDS: MELATONIN 3 MG TAB PO SCH (20:55)
[2018-01-11] MEDS: morphINE SR 15 MG TAB PO SCH (20:56)
[2018-01-12] MEDS: oxyCODONE IR 5 MG TAB PO PRN ×4 (04:02→20:18)
[2018-01-12] MEDS: LEVOTHYROXINE 150 MCG TAB PO SCH (04:02)
[2018-01-12] MEDS ORDERED: NS 1,000 ML IV ONE (06:23)
[2018-01-12] MEDS: INSULIN LISPRO 100 UNIT/ML SC SCH ×4 (07:29→18:21)
[2018-01-12] MEDS: SUCRALFATE 1 GM/10 ML UDCUP PO SCH ×4 (07:35→20:17)
[2018-01-12] MEDS: NICOTINE 21 MG/24 HR PATCH TD SCH (07:53)
[2018-01-12] MEDS: GABAPENTIN 300 MG CAP PO SCH ×3 (07:53→22:31)
[2018-01-12] MEDS: POLYETHYLENE GLYCOL 3350 17 GM PKT PO SCH (07:53)
[2018-01-12] MEDS: SENNOSIDES/DOCUSATE SODIUM TAB PO SCH ×2 (07:54→20:17)
[2018-01-12] MEDS: ASPIRIN EC 81 MG TAB PO SCH (07:54)
[2018-01-12] MEDS: ENOXAPARIN 40 MG/0.4 ML SYR SC SCH (07:54)
[2018-01-12] MEDS: PANTOPRAZOLE SODIUM 40 MG TAB PO SCH ×2 (07:54→20:18)
[2018-01-12] MEDS: THIAMINE HCL 100 MG TAB PO SCH (07:54)
[2018-01-12] MEDS: amLODIPine BESYLATE 5 MG TAB PO SCH (08:12)
[2018-01-12] MEDS: TAMSULOSIN HCL 0.4 MG CAP PO SCH (08:13)
[2018-01-12] MEDS: INSULIN GLARGINE 100 UNITS/ML UNIT SC SCH ×2 (08:50→20:17)
[2018-01-12] MEDS ORDERED: REGADENOSON 0.4 MG/5 ML SYR IVP ONE (09:35)
--- NOTE | 2018-01-12 10:32 | CPR ---
[f rep st] NONINVASIVE CARDIAC PROCEDURE REPORT DATE OF PROCEDURE: 01/12/2018 PROCEDURE: Lexiscan nuclear stress test. REASON FOR TEST: Chest pain. PREPROCEDURE FINDINGS: Resting EKG shows a sinus bradycardia with a rate of 59. No ischemic changes are noted. Resting blood pressure 120/86, resting heart rate 57, oxygen saturation 89% to 91%. He is asymptomatic at this time. STRESS PORTION LEXISCAN NUCLEAR STRESS TEST: Lexiscan was injected rapidly, followed by saline flush . Cardiolite was then injected, followed by saline flush. He did become short of breath after the i njection. Blood pressure 108/70, heart rate peaked at 85, oxygen saturation 97%. His only symptom w as shortness of breath during the testing portion. There were no EKG changes noted. RECOVERY: He did spontaneously recover. His breathing improved. Caffeine was given, and his shortn ess of breath subsided. Recovery blood pressure 130/72, recovery heart rate 78, oxygen saturation 97 %. There were no EKG changes during testing. At this time, he currently is stable for nuclear imagi ng. /[id number]/MODL
--- NOTE | 2018-01-12 10:43 | SOAPPROG ---
SOAP Progress Note Assessment/Plan: Assessment/Plan: 57yo M well-known to our service for recent RUE necrotizing fasciitis, s/p split thickness skin graft of Right forearm wound and surgical debridement of proximal RUE abscess. R forearm skin graft - wound gel and allevyn. will plan to remove vic prior to DC R thigh donor site - Mepilex transfer and tegaderm R upper arm abscess - HFB ready and allevyn q3d IV antibiotics per ID Appreciate hospitalists Dispo: ok to DC from surgery standpoint. S: Patient was downstairs at [facility] for coronary scan. Will reevaluate later today or tomorrow O: patient not available for exam Objective: Vital Signs Temp Pulse Resp BP Pulse Ox 36.3 C 62 18 101/63 92 01/12/18 07:08 01/12/18 07:08 01/12/18 07:08 01/12/18 08:12 01/12/18 07:08 Laboratory Results 01/10/18 04:35 01/10/18 04:35 01/11/18 01/12/18 01/13/18 05:59 05:59 05:59 Output Total 550 2502 Balance -550 -2502 PT 13.9 SEC (12.0-15.0) 12/25/17 23:30 INR 1.05 (0.83-1.16) 12/25/17 23:30 ICD10 Worksheet Patient Problems: Problems Problem Status Onset DKA (diabetic ketoacidoses) Acute Alcohol abuse Acute Alcohol dependence Acute Alcohol intoxication Acute Altered mental status Acute Atelectasis Acute Bronchitis Acute Diabetic foot ulcer Acute Hyperglycemia Acute Hyperglycemia due to type 2 diabetes mellitus Acute Leukocytosis Acute Osteomyelitis Acute Pneumonia Acute Right arm cellulitis Acute
--- NOTE | 2018-01-12 16:44 | HOSPPROG ---
Hospitalist Progress Note Assessment/Plan: 57 yo M w dm 2 admitted w AGMA< hyperglycemia, sepsis, skin lesions and RUE mass acute encephalopathy. resolved RUE necrotizing abscess s/p I&D w/ MRSA on wound cx s/p I+D US w/o DVT wound vac off, ongoing wound care, requiring SNF for asst received 10 total days Abx (4 days Vanco, 6 days Doxy) Chronic pain w/ continuous opiate dependency. Patient reports better pain relief on current Rx cont PRN oxy to 10-30mg PRN, cont MS cont 15 HS siria, adjusted gabapentin to 900 tid and gauge effect pain mgmt currently stabilized hx CVA - had revisitation in setting of hypoglycemia, received neuro consultation started asa LDL 52 ICA stenosis 65-75% - non-op per Dr Ng DM2 - cont lantus 20/20 staph epi in BCx - suspect contaminant constipation - ongoing bowel protocol DKA - acute, resolved metabolic acidosis - resolved severe sepsis - resolved acute chest pain - new problem to this provider, further w/u indicated. POA, in setting of infxn stressor, high risk of angina lexiscAn w no ekg cnages stress images abnormal but limited by motion continue med rx w asa poor candidate for PCI given non compliance and concern for ability to reliably take DAP Subjective: case d/w tamra rubio, cardiology [employer] Objective: Vital Signs Temp Pulse Resp BP Pulse Ox 36.6 C 82 18 124/76 H 93 01/12/18 15:35 01/12/18 15:35 01/12/18 15:35 01/12/18 15:35 01/12/18 15:35 Laboratory Results 01/10/18 04:35 01/10/18 04:35 01/11/18 01/12/18 01/13/18 05:59 05:59 05:59 Output Total 550 2502 Balance -550 -2502 PT 13.9 SEC (12.0-15.0) 12/25/17 23:30 INR 1.05 (0.83-1.16) 12/25/17 23:30 - Physical Exam Constitutional: no apparent distress, appears nourished Eyes: PERRL, anicteric sclera Ears, Nose, Mouth, Throat: moist mucous membranes, hearing normal Cardiovascular: regular rate and rhythym, no murmur, rub, or gallop Respiratory: no respiratory distress, no rales or rhonchi Gastrointestinal: normoactive bowel sounds, soft, non-tender abdomen Genitourinary: no bladder fullness, No garcia in urethra Skin: warm Musculoskeletal: full muscle strength Neurologic: AAOx3 ICD10 Worksheet Patient Problems: Problems Problem Status Onset DKA (diabetic ketoacidoses) Acute Alcohol abuse Acute Alcohol dependence Acute Alcohol intoxication Acute Altered mental status Acute Atelectasis Acute Bronchitis Acute Diabetic foot ulcer Acute Hyperglycemia Acute Hyperglycemia due to type 2 diabetes mellitus Acute Leukocytosis Acute Osteomyelitis Acute Pneumonia Acute Right arm cellulitis Acute
--- NOTE | 2018-01-12 17:50 | ASMTCMCOM ---
CM Note CM Note Notes: Per MD, Pt. ready for d/c tomorrow. Francisco consulted with bedside RN. Plan to d/c Pt. tomorrow to homeless [facility] due to him not being able to be admitted at LTC facility due to his past reported behaviors. Will need wound care clinic appts. per surgery. Francisco spoke with [place] at [facility] today. Camden not personally available to bring Pt's electric wheelchair to [facility] today or tomorrow, but he asked Francisco to call his colleague Ene Quevedo at [facility] . [employer] did have the right kind of truck for the job. Francisco left a message. Hopefully [facility] can bring electric wheelchair tomorrow for d/c. Francisco met w/ Pt. in room. Pt. not happy about inability to be placed in a LTC facility. Did not acknowledge doing what he is accused of. Pt. verbalized that he hopes MD will allow him to stay at [facility] longer. Explained to Pt. that we would problem-solve his situation to make d/cing as homeless as least painful as possible. Pt. not pleased, but appropriate with this worker. Date Signed: 01/12/2018 05:49 PM Electronically Signed By:Chantel Coleman LCSW
[2018-01-12] MEDS: morphINE SR 15 MG TAB PO SCH (20:17)
[2018-01-12] MEDS: MELATONIN 3 MG TAB PO SCH (20:17)
[2018-01-13] MEDS: oxyCODONE IR 5 MG TAB PO PRN ×5 (02:26→20:31)
[2018-01-13] MEDS: LEVOTHYROXINE 150 MCG TAB PO SCH (05:13)
[2018-01-13] MEDS: SUCRALFATE 1 GM/10 ML UDCUP PO SCH ×4 (08:20→20:31)
[2018-01-13] MEDS: INSULIN LISPRO 100 UNIT/ML SC SCH ×3 (08:31→18:50)
[2018-01-13] MEDS: POLYETHYLENE GLYCOL 3350 17 GM PKT PO SCH (08:32)
[2018-01-13] MEDS: ENOXAPARIN 40 MG/0.4 ML SYR SC SCH (08:32)
[2018-01-13] MEDS: amLODIPine BESYLATE 5 MG TAB PO SCH (08:32)
[2018-01-13] MEDS: NICOTINE 21 MG/24 HR PATCH TD SCH (08:32)
[2018-01-13] MEDS: THIAMINE HCL 100 MG TAB PO SCH (08:32)
[2018-01-13] MEDS: SENNOSIDES/DOCUSATE SODIUM TAB PO SCH ×2 (08:33→20:31)
[2018-01-13] MEDS: PANTOPRAZOLE SODIUM 40 MG TAB PO SCH ×2 (08:33→20:31)
[2018-01-13] MEDS: ASPIRIN EC 81 MG TAB PO SCH (08:33)
[2018-01-13] MEDS: TAMSULOSIN HCL 0.4 MG CAP PO SCH (08:33)
[2018-01-13] MEDS: GABAPENTIN 300 MG CAP PO SCH ×3 (08:33→23:59)
[2018-01-13] MEDS: INSULIN GLARGINE 100 UNITS/ML UNIT SC SCH ×2 (08:33→20:32)
--- NOTE | 2018-01-13 09:12 | SOAPPROG ---
SOAP Progress Note Assessment/Plan: Assessment/Plan: 57yo M well-known to our service for recent RUE necrotizing fasciitis, s/p split thickness skin graft of Right forearm wound and surgical debridement of proximal RUE abscess. R forearm skin graft - healing well. Will remove 1/2 vic today and change allevyn. R thigh donor site - Mepilex transfer and tegaderm R upper arm abscess - HFB ready and allevyn q3d IV antibiotics per ID Appreciate hospitalists Dispo: ok to DC from surgery standpoint. S: Doing well. O: Sitting at side of bed eating breakfast. In good spirits. RESP: No increased work of breathing SKIN: R thigh donor graft site is covered with mepelex and tegaderm. No drainage from dressing. R forearm skin graft is healing well. Appropriate moisture level. 1/2 vic removed 90% graft take. R upper arm abscess healing well. Granulation tissue present. 12/30/17 10:25 01/01/18 14:11 01/06/18 15:14 01/13/18 09:11 01/13/18 09:12 01/13/18 13:16 Objective: Vital Signs Temp Pulse Resp BP Pulse Ox 36.6 C 75 20 118/77 95 01/13/18 08:00 01/13/18 08:00 01/13/18 08:00 01/13/18 08:00 01/13/18 08:00 Laboratory Results 01/10/18 04:35 01/10/18 04:35 01/12/18 01/13/18 01/14/18 05:59 05:59 05:59 Intake Total 1000 Output Total 2502 2000 500 Balance -2502 -1000 -500 PT 13.9 SEC (12.0-15.0) 12/25/17 23:30 INR 1.05 (0.83-1.16) 12/25/17 23:30 ICD10 Worksheet Patient Problems: Problems Problem Status Onset DKA (diabetic ketoacidoses) Acute Alcohol abuse Acute Alcohol dependence Acute Alcohol intoxication Acute Altered mental status Acute Atelectasis Acute Bronchitis Acute Diabetic foot ulcer Acute Hyperglycemia Acute Hyperglycemia due to type 2 diabetes mellitus Acute Leukocytosis Acute Osteomyelitis Acute Pneumonia Acute Right arm cellulitis Acute
--- NOTE | 2018-01-13 15:10 | HOSPPROG ---
Hospitalist Progress Note Assessment/Plan: 57 yo M w dm 2 admitted w AGMA, hyperglycemia, sepsis, skin lesions and RUE mass acute encephalopathy. resolved RUE necrotizing abscess s/p I&D w/ MRSA on wound cx s/p I+D US w/o DVT wound vac off, ongoing wound care, requiring SNF for asst received 10 total days Abx (4 days Vanco, 6 days Doxy) Chronic pain w/ continuous opiate dependency. Patient reports better pain relief on current Rx cont PRN oxy to 10-30mg PRN, cont MS cont 15 HS siria, adjusted gabapentin to 900 tid and gauge effect pain mgmt currently stabilized hx CVA - had revisitation in setting of hypoglycemia, received neuro consultation started asa LDL 52 ICA stenosis 65-75% - non-op per Dr Ng DM2 - cont lantus 20/20 staph epi in BCx - suspect contaminant constipation - ongoing bowel protocol DKA - acute, resolved metabolic acidosis - resolved severe sepsis - resolved acute chest pain - lexiscAn w no ekg cnages stress images abnormal but limited by motion continue med rx w asa poor candidate for PCI given non compliance and concern for ability to reliably take DAP LDL 106- add statin Subjective: case d/w dr rojas Objective: Vital Signs Temp Pulse Resp BP Pulse Ox 36.6 C 75 20 118/77 95 01/13/18 08:00 01/13/18 08:00 01/13/18 08:00 01/13/18 08:00 01/13/18 08:00 Laboratory Results 01/10/18 04:35 01/10/18 04:35 01/12/18 01/13/18 01/14/18 05:59 05:59 05:59 Intake Total 1000 Output Total 2502 2000 500 Balance -2502 -1000 -500 PT 13.9 SEC (12.0-15.0) 12/25/17 23:30 INR 1.05 (0.83-1.16) 12/25/17 23:30 - Physical Exam Constitutional: no apparent distress, appears nourished Eyes: PERRL, anicteric sclera Ears, Nose, Mouth, Throat: moist mucous membranes, hearing normal Cardiovascular: regular rate and rhythym, no murmur, rub, or gallop Respiratory: no respiratory distress, no rales or rhonchi Gastrointestinal: normoactive bowel sounds, soft, non-tender abdomen Genitourinary: no bladder fullness, No garcia in urethra Skin: warm Musculoskeletal: full muscle strength Neurologic: AAOx3 Psychiatric: interacting appropriately ICD10 Worksheet Patient Problems: Problems Problem Status Onset DKA (diabetic ketoacidoses) Acute Alcohol abuse Acute Alcohol dependence Acute Alcohol intoxication Acute Altered mental status Acute Atelectasis Acute Bronchitis Acute Diabetic foot ulcer Acute Hyperglycemia Acute Hyperglycemia due to type 2 diabetes mellitus Acute Leukocytosis Acute Osteomyelitis Acute Pneumonia Acute Right arm cellulitis Acute
[2018-01-13] MEDS: ATORVASTATIN CALCIUM 10 MG TAB PO SCH (16:23)
--- NOTE | 2018-01-13 17:08 | ASMTCMCOM ---
CM Note CM Note Notes: Today had failed attempt to get Pt's electric wheelchair delivered to [facility] due to the [facility] program not having enough staff available to lift wheelchair into truck bed. According to Flavio Quevedo at [facility] , plan is for [facility] to deliver wheelchair to [facility] front administrative receptionist [place] tomorrow at approximately 1:00pm. SWer to call [employer] tomorrow to rally some heavy lifters to help get wheelchair out of truck bed. Staff at [facility] charging wheelchair overnight. Discussing plans with CM Generation [employer] Technologist to have [facility] pay for Pt[facility] to [place], [place] to stay with his sister, Cassi Merry Go Round Attendant . Francisco spoke w/ Cassi on the phone today. Cassi aware of Pt's numerous problems and states he has been "a handful" all of her life. Cassi is the older sister. Cassi states she will take Oziel into her home and that she will pick him up at the [facility] stop. Cassi's address is: [facility] [facility] [place], [address]. Tomorrow will ask if Cassi can contribute any funds to Pt's bus ticket. Plan to d/c Pt. tomorrow to [place]. Pt. refusing homeless fpc stay as of [facility]. Date Signed: 01/13/2018 05:07 PM Electronically Signed By:Chantel Coleman LCSW
[2018-01-13 17:11] VITALS: RESP 18
[2018-01-13] MEDS: MELATONIN 3 MG TAB PO SCH (20:32)
[2018-01-13] MEDS: morphINE SR 15 MG TAB PO SCH (20:32)
[2018-01-14] MEDS: oxyCODONE IR 5 MG TAB PO PRN ×5 (00:36→21:01)
[2018-01-14] MEDS: LEVOTHYROXINE 150 MCG TAB PO SCH (05:00)
[2018-01-14] MEDS: INSULIN GLARGINE 100 UNITS/ML UNIT SC SCH ×2 (09:22→21:04)
[2018-01-14] MEDS: SUCRALFATE 1 GM/10 ML UDCUP PO SCH ×4 (09:23→21:09)
[2018-01-14] MEDS: NICOTINE 21 MG/24 HR PATCH TD SCH (09:23)
[2018-01-14] MEDS: GABAPENTIN 300 MG CAP PO SCH ×3 (09:23→21:03)
[2018-01-14] MEDS: TAMSULOSIN HCL 0.4 MG CAP PO SCH (09:23)
[2018-01-14] MEDS: ASPIRIN EC 81 MG TAB PO SCH (09:23)
[2018-01-14] MEDS: THIAMINE HCL 100 MG TAB PO SCH (09:24)
[2018-01-14] MEDS: PANTOPRAZOLE SODIUM 40 MG TAB PO SCH ×2 (09:24→21:03)
[2018-01-14] MEDS: SENNOSIDES/DOCUSATE SODIUM TAB PO SCH ×2 (09:24→21:03)
[2018-01-14] MEDS: amLODIPine BESYLATE 5 MG TAB PO SCH (09:24)
[2018-01-14] MEDS: POLYETHYLENE GLYCOL 3350 17 GM PKT PO SCH (09:25)
[2018-01-14] MEDS: ENOXAPARIN 40 MG/0.4 ML SYR SC SCH (09:25)
[2018-01-14] MEDS: INSULIN LISPRO 100 UNIT/ML SC SCH ×3 (09:30→16:06)
--- NOTE | 2018-01-14 10:34 | HOSPPROG ---
Hospitalist Progress Note Assessment/Plan: 57 yo M w dm 2 admitted w AGMA, hyperglycemia, sepsis, skin lesions and RUE mass acute encephalopathy. resolved RUE necrotizing abscess s/p I&D w/ MRSA on wound cx s/p I+D US w/o DVT wound vac off, ongoing wound care, requiring SNF for asst received 10 total days Abx (4 days Vanco, 6 days Doxy) Chronic pain w/ continuous opiate dependency. Patient reports better pain relief on current Rx cont PRN oxy to 10-30mg PRN, cont MS cont 15 HS siria, adjusted gabapentin to 900 tid and gauge effect pain mgmt currently stabilized hx CVA - had revisitation in setting of hypoglycemia, received neuro consultation started asa LDL 52 ICA stenosis 65-75% - non-op per Dr Ng DM2 - cont lantus 20/20 staph epi in BCx - suspect contaminant constipation - ongoing bowel protocol DKA - acute, resolved metabolic acidosis - resolved severe sepsis - resolved acute chest pain - lexiscAn w no ekg cnages stress images abnormal but limited by motion continue med rx w asa poor candidate for PCI given non compliance and concern for ability to reliably take DAP LDL 106- add statin home today > 30 minutes Subjective: case d.w dr rojas. vic removed Objective: Vital Signs Temp Pulse Resp BP Pulse Ox 36.6 C 69 18 124/80 H 95 01/14/18 08:00 01/14/18 08:00 01/14/18 08:00 01/14/18 08:00 01/14/18 08:00 Laboratory Results 01/10/18 04:35 01/10/18 04:35 01/13/18 01/14/18 01/15/18 05:59 05:59 05:59 Intake Total 1000 Output Total 2000 900 Balance -1000 -900 PT 13.9 SEC (12.0-15.0) 12/25/17 23:30 INR 1.05 (0.83-1.16) 12/25/17 23:30 - Physical Exam Constitutional: no apparent distress, appears nourished Eyes: PERRL, anicteric sclera Ears, Nose, Mouth, Throat: moist mucous membranes, hearing normal Cardiovascular: regular rate and rhythym, no murmur, rub, or gallop Respiratory: no respiratory distress, no rales or rhonchi Gastrointestinal: normoactive bowel sounds, soft, non-tender abdomen Genitourinary: no bladder fullness, No garcia in urethra Skin: warm, normal color Musculoskeletal: full muscle strength Neurologic: AAOx3 ICD10 Worksheet Patient Problems: Problems Problem Status Onset DKA (diabetic ketoacidoses) Acute Alcohol abuse Acute Alcohol dependence Acute Alcohol intoxication Acute Altered mental status Acute Atelectasis Acute Bronchitis Acute Diabetic foot ulcer Acute Hyperglycemia Acute Hyperglycemia due to type 2 diabetes mellitus Acute Leukocytosis Acute Osteomyelitis Acute Pneumonia Acute Right arm cellulitis Acute
--- NOTE | 2018-01-14 11:32 | GDS ---
[f rep st] DISCHARGE SUMMARY DISCHARGE DIAGNOSIS: 1. Metabolic acidosis in the setting of diabetes with concern for diabetic ketoacidosis. Notably, anatoliy minor has type 2 diabetes. 2. Sepsis. 3. Staphylococcus epi bacteremia, considered to be contaminant. 4. Necrotizing fasciitis of the right upper extremity, status post incision and drainage by Dr. Kedar Foster. 5. Chest pain. 6. Positive stress test versus motion artifact. 7. Tobacco use. 8. Status post below-knee amputation for infection. HOSPITAL COURSE: Please see admission history and physical by Dr. Regi Buck. The patient presente d to the hospital and was admitted to the ICU on the evening of the . He was placed on an insuli n drip. His right upper extremity nodule that was concerning for possible abscess versus hematoma wa s followed by surgery who felt it was more consistent hematoma. The patient presented with sepsis, initially started on vancomycin and meropenem. He was markedly en cephalopathic for the first couple of hospital days. He was followed by surgery. Ultimately, he was taken to the operating room for incision and drainage of abscess. This grew out MRSA. Five days lat er, he returned to the operating room for necrotizing fasciitis for a right forearm wound. This is d ifferent than the right upper arm abscess. A split-thickness skin graft was made. For the remainder of the hospitalization, the patient was convalescing on the floor. He had chest pain. A stress alok t was abnormal, but thought possible secondary to motion artifact. Ultimately, he was felt to be a p oor candidate for intervention given his medical noncompliance. He certainly has risk factors for CA D. Aspirin and statin were added for LDL of 105. The patient's electronic wheelchair was recovered after extraordinary efforts by the Case Management team and he was discharged with plans to return to his family in [place], and he was prescribed with a free medication refill of all of his medications. /[id number]/MODL
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
--- NOTE | 2018-01-14 16:03 | SOAPPROG ---
SOAP Progress Note Assessment/Plan: Assessment/Plan: 57yo M well-known to our service for recent RUE necrotizing fasciitis, s/p split thickness skin graft of Right forearm wound and surgical debridement of proximal RUE abscess. All vic removed All wounds - silvasorb, absorptive bandage, change PRN Appreciate hospitalists Dispo: ok to DC from surgery standpoint. Seen c Dr. rojas S: No complaints today. O: Sitting upright in wheelchair, comfortable, NAD No increased WOB R upper arm wound with healthy granulation - dressing changed to silvasorb and allevyn Remainder of vic removed from R forearm graft site. Silvasorb and allevyn No evidence of infection Objective: Vital Signs Temp Pulse Resp BP Pulse Ox 36.3 C 90 18 104/64 92 01/14/18 15:56 01/14/18 15:56 01/14/18 15:56 01/14/18 15:56 01/14/18 15:56 Laboratory Results 01/10/18 04:35 01/10/18 04:35 01/13/18 01/14/18 01/15/18 05:59 05:59 05:59 Intake Total 1000 Output Total 2000 900 Balance -1000 -900 PT 13.9 SEC (12.0-15.0) 12/25/17 23:30 INR 1.05 (0.83-1.16) 12/25/17 23:30 ICD10 Worksheet Patient Problems: Problems Problem Status Onset DKA (diabetic ketoacidoses) Acute Alcohol abuse Acute Alcohol dependence Acute Alcohol intoxication Acute Altered mental status Acute Atelectasis Acute Bronchitis Acute Diabetic foot ulcer Acute Hyperglycemia Acute Hyperglycemia due to type 2 diabetes mellitus Acute Leukocytosis Acute Osteomyelitis Acute Pneumonia Acute Right arm cellulitis Acute
[2018-01-14] MEDS: MELATONIN 3 MG TAB PO SCH (21:04)
[2018-01-14] MEDS: morphINE SR 15 MG TAB PO SCH (21:04)
[2018-01-15] MEDS: oxyCODONE IR 5 MG TAB PO PRN ×3 (04:05→13:08)
[2018-01-15] MEDS: LEVOTHYROXINE 150 MCG TAB PO SCH (04:08)
[2018-01-15 08:54] VITALS: BP 106/64; PULSE 70; TEMP 97.5; O2SAT 94
[2018-01-15] MEDS: INSULIN LISPRO 100 UNIT/ML SC SCH ×2 (09:03→12:28)
[2018-01-15] MEDS: PANTOPRAZOLE SODIUM 40 MG TAB PO SCH (09:11)
[2018-01-15] MEDS: GABAPENTIN 300 MG CAP PO SCH ×2 (09:11→15:54)
[2018-01-15] MEDS: SUCRALFATE 1 GM/10 ML UDCUP PO SCH ×2 (09:11→12:20)
[2018-01-15] MEDS: ASPIRIN EC 81 MG TAB PO SCH (09:11)
[2018-01-15] MEDS: SENNOSIDES/DOCUSATE SODIUM TAB PO SCH (09:11)
[2018-01-15] MEDS: THIAMINE HCL 100 MG TAB PO SCH (09:11)
[2018-01-15] MEDS: TAMSULOSIN HCL 0.4 MG CAP PO SCH (09:11)
[2018-01-15] MEDS: ATORVASTATIN CALCIUM 10 MG TAB PO SCH (09:12)
[2018-01-15] MEDS: INSULIN GLARGINE 100 UNITS/ML UNIT SC SCH (09:12)
[2018-01-15] MEDS: POLYETHYLENE GLYCOL 3350 17 GM PKT PO SCH (09:13)
[2018-01-15] MEDS: amLODIPine BESYLATE 5 MG TAB PO SCH (09:13)
[2018-01-15] MEDS: ENOXAPARIN 40 MG/0.4 ML SYR SC SCH (09:14)
[2018-01-15] MEDS: NICOTINE 21 MG/24 HR PATCH TD SCH ×2 (09:14→12:19)
--- NOTE | 2018-01-15 10:50 | HOSPPROG ---
Hospitalist Progress Note Assessment/Plan: 57 yo M w dm 2 admitted w AGMA, hyperglycemia, sepsis, skin lesions and RUE mass acute encephalopathy. resolved RUE necrotizing abscess s/p I&D w/ MRSA on wound cx s/p I+D US w/o DVT wound vac off, ongoing wound care, requiring SNF for asst received 10 total days Abx (4 days Vanco, 6 days Doxy) Chronic pain w/ continuous opiate dependency. Patient reports better pain relief on current Rx cont PRN oxy to 10-30mg PRN, cont MS cont 15 HS siria, adjusted gabapentin to 900 tid and gauge effect pain mgmt currently stabilized hx CVA - had revisitation in setting of hypoglycemia, received neuro consultation started asa LDL 52 ICA stenosis 65-75% - non-op per Dr Ng DM2 - cont lantus 20/20 staph epi in BCx - suspect contaminant constipation - ongoing bowel protocol DKA - acute, resolved metabolic acidosis - resolved severe sepsis - resolved acute chest pain - lexiscAn w no ekg cnages stress images abnormal but limited by motion continue med rx w asa poor candidate for PCI given non compliance and concern for ability to reliably take DAP LDL 106- add statin home today > 30 minutes Subjective: didnt leave yesterday 2/2 wheelchair snafu Objective: Vital Signs Temp Pulse Resp BP Pulse Ox 36.4 C 70 18 106/64 94 01/15/18 08:00 01/15/18 08:00 01/15/18 08:00 01/15/18 09:13 01/15/18 08:00 Laboratory Results 01/10/18 04:35 01/10/18 04:35 01/14/18 01/15/18 01/16/18 05:59 05:59 06:59 Intake Total 2000 Output Total 900 3000 Balance -900 -1000 PT 13.9 SEC (12.0-15.0) 12/25/17 23:30 INR 1.05 (0.83-1.16) 12/25/17 23:30 - Physical Exam Constitutional: no apparent distress, appears nourished Eyes: PERRL, anicteric sclera Ears, Nose, Mouth, Throat: moist mucous membranes, hearing normal Cardiovascular: regular rate and rhythym, no murmur, rub, or gallop, systolic murmur Respiratory: no respiratory distress, no rales or rhonchi Gastrointestinal: normoactive bowel sounds, soft, non-tender abdomen Genitourinary: No garcia in urethra Skin: warm, normal color Musculoskeletal: full muscle strength Neurologic: AAOx3 ICD10 Worksheet Patient Problems: Problems Problem Status Onset DKA (diabetic ketoacidoses) Acute Alcohol abuse Acute Alcohol dependence Acute Alcohol intoxication Acute Altered mental status Acute Atelectasis Acute Bronchitis Acute Diabetic foot ulcer Acute Hyperglycemia Acute Hyperglycemia due to type 2 diabetes mellitus Acute Leukocytosis Acute Osteomyelitis Acute Pneumonia Acute Right arm cellulitis Acute
--- NOTE | 2018-01-15 11:06 | GDS ---
[f rep st] DISCHARGE SUMMARY Please see yesterday's discharge summary. The patient was unable to leave secondary to wheelchair re lated issues. Those have resolved. He has a bus ticket to [place] where his sister lives. He is pr ovided with prescriptions. For details of his medical hospitalization, please see yesterday's dischar ge summary. /[id number]/MODL
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
== END 2018-01-15 16:13 | disposition home or self-care (01) | DRG 853 ==
LOC: EDUNIT# → F2N 22:15 → F3E 12-29 09:09
PROVIDERS: ADMIT Internal Medicine; ATTEND Internal Medicine
DX: A41.02 Sepsis due to Methicillin resistant Staphylococcus aureus (principal); E11.10 Type 2 diabetes mellitus with ketoacidosis without coma; M72.6 Necrotizing fasciitis; G93.40 Encephalopathy, unspecified; E87.2 Acidosis; L02.413 Cutaneous abscess of right upper limb; R07.9 Chest pain, unspecified; E11.65 Type 2 diabetes mellitus with hyperglycemia; I10 Essential (primary) hypertension; T38.3X6A Underdosing of insulin and oral hypoglycemic [antidiabetic] drugs, initial encounter; E03.9 Hypothyroidism, unspecified; G89.29 Other chronic pain; B00.9 Herpesviral infection, unspecified; Z72.0 Tobacco use; Z59.0 Homelessness; Z79.4 Long term (current) use of insulin; Z89.511 Acquired absence of right leg below knee
CPT/HCPCS: 80307; 82947-QW; 92610-GN; 96365; 97110-GO; 97110-GP; 97116-GP; 97161-GP; 97166-GO; 97530-GO; 97530-GP; 97535-GO; A9500; C1751; G0480; J0171; J0295; J0610; J0692; J1650; J1815; J2185; J2270; J2405; J2704; J2785; J2997; J3010; J3370; J3411; J3475; J3480; Q9967